=== PATIENT | female | born 1945 | race Caucasian/White ===

== ENCOUNTER 2016-02-21 23:12 | Emergency (ER) | payer MEDICARE, MEDICAID ==
[2016-02-22 00:10] LABS: #Basophils 0.1 thou/uL (0.0-0.2); #Eosinphils 0.2 thou/uL (0.0-0.7); #Monocytes 0.8 thou/uL (0.11-0.59); #Neutrophils 9.3 thou/uL (1.40-6.50); %Basophils 0.8 % (0.0-1.0); %Monocytes 6.9 % (0.0-10.0); Hematocrit 46.6 % (36.0-47.0); Mean Platelet Volume 8.5 fL (7.4-10.4); Red Blood Cell (RBC) Count 5.03 mill/uL (4.20-5.40); White Blood Cell (WBC) Count 11.5 thou/uL (4.8-10.8)
[2016-02-22 00:13] LABS: Bilirubin Negative (Negative); Blood, Urine Negative (Negative); Glucose, Urine (Dipstick) Negative (Negative); Ketone, Urine Negative (Negative); Nitrite Positive (Negative); Protein, Urine (Dipstick) Negative (Neg-Trace); Urobilinogen 0.2 mg/dL (0.2-1.0)
[2016-02-22 00:22] LABS: RBC/HPF 0-3 HPF (0-3); Squamous Epithelial 0-3 HPF (0-3); Transitional Epithelial 0-3 HPF (0-3)
[2016-02-22 00:23] LABS: Bacteria/HPF 3+ HPF (None Seen); Hyaline Casts/LPF 0-3 HYALINE CAST LPF (0-3 Hyaline)
[2016-02-22 00:24] LABS: ALT (SGPT) 34 U/L (0-55); AST (SGOT) 36 U/L (5-34); Alkaline Phosphatase 110 U/L (40-150); Anion Gap 15 mmol/L (10-20); BUN (Urea Nitrogen) 47 mg/dL (9.8-20.1); Bilirubin, Total 0.6 mg/dL (0.2-1.2); Calc. Creatinine Clearance 0 mL/min (70-130); Calcium 9.5 mg/dL (7.8-10.44); Carbon Dioxide 23 mmol/L (23-31); Chloride 96 mmol/L (98-107); Estimated GFR-MDRD 31; Globulin 5.2 g/dL (2.4-3.5); Lipase 120 U/L (8-78); Protein, Total 8.8 g/dL (5.8-8.1)
--- NOTE | 2016-02-22 01:02 | ERRECORD ---
[facility] EMERGENCY RECORD HPI ABDOMINAL PAIN (23:54 [facility]) CHIEF COMPLAINTS: Patient presents for evaluation of abdominal pain, Patient presents for evaluation of abdominal distention. HISTORIAN: History provided by patient, 70F presents with complaints of three weeks of nausea, decreased PO intake, and abdominal discomfort. States that her symptoms have been intermittent but unchanging in character since onset. She was recently an inpatient for CHF exacerbation, and symptoms have been presents since medication changes during that stay. States that her ostomy bag has still had consistent output, and she has not had any episodes of pain. she does report feeling dehydrated, with decreased urinary output and concern for UTI. Denies chest pain, shortness of breath, or headache. Has had multiple abdominal surgeries in the past. LOCATION FEMALE: Symptoms are generalized, Left sided with generalized radiation. QUALITY: Pain is dull in nature, described as bloating sensation, described as cramping, described as a sensation of fullness. TIME COURSE: Gradual onset of symptoms, Symptoms are intermittent, There has been no change in the patient's symptoms over time. ASSOCIATED WITH FEMALE: Associated with urinary tract infection signs or symptoms, hesitancy. EXACERBATED BY: Patient's condition exacerbated by food. ROS (23:58 [facility]) CONSTITUTIONAL: Negative constitutional review of systems, Historian denies chills, denies fever. EYES: Negative eye review of systems, Historian denies eye pain, denies vision changes. ENT: Negative ears, nose, throat review of systems, Historian denies rhinorrhea, denies sore throat, denies voice changes. CARDIOVASCULAR: Negative cardiovascular review of systems, Historian denies chest pain, denies palpitations. RESPIRATORY: Negative respiratory review of systems, Historian denies cough, denies shortness of breath. GI: Historian reports abdominal pain, reports food intolerance. GENITOURINARY FEMALE: Historian denies dysuria, denies frequency, reports hesitancy. MUSCULOSKELETAL: Negative musculoskeletal review of systems, Historian denies back pain, denies fall, denies injury. SKIN: Negative skin review of systems, Historian denies rash, denies skin changes. NEUROLOGIC: Negative neurologic review of systems, Historian denies headache, denies mental status changes, denies paralysis, denies paresthesias, denies sensory changes. HEMO/LYMPHATIC: Normal hematologic/lymphatic system review, Historian denies abnormal blood clotting. &a-1R&a+25V*p+0X*m0296P*c202B*c15G*c2P*p-0X&a-25V&a+1R Name: Honey Cheng : 1945 F70 MedRec: [id number] AcctNum: [id number] Prepared: Mele Feb 22, 2016 01:38 by Interface Page 1 of 4 pMD [facility] EMERGENCY RECORD ALLERGIC/IMMUNOLOGIC: Normal allergy/immunologic system review, Historian denies frequent infections. PAST MEDICAL HISTORY (23:47 [facility]) MEDICAL HISTORY: Past medical history includes endocrine disease, hypothyroidism, Past medical history includes gastrointestinal disease, crohns, DM II, anemia, GI bleed. ischemic cerebral vascular accident x 2, TIA x1 Notes: POSSIBLE HX OF LUPUS AND FIRBROMYALGIA, myocardial infarction, diabetes, Type II, on insulin, coronary artery disease, h/o MRSA infection,hx of acute renal failure. Fx of RArm in 3 places, FX COCYX. REVIEWED 02/21/16. FEMALE SURGICAL HISTORY: Surgical history of mastectomy, CABG, abd wall abscess. 2004 COLON SURGERY; TUMMY TUCK, coronary artery bypass graft surgery, four vessels, Date of surgery 10/2008, umbilical hernia repair, double, Date of surgery 06/16/2009, ileostomy, Date of surgery 2008, tonsillectomy. total colectomy 2013. colectomy, partial small bowel resection, iliostomy,. REVIEWED 02/21/16. PSYCHIATRIC HISTORY: Psychiatric history includes, anxiety, depression. REVIEWED 02/21/16. SOCIAL HISTORY: Patient is a former tobacco user, smoked cigarettes, Patient quit smoking more than 10 years ago, Patient denies alcohol use, Patient denies drug use. REVIEWED 02/21/16. FAMILY HISTORY: Family history is not significant. KNOWN ALLERGIES azathioprine (Unconfirmed): Reaction: PANCREATITIS azathioprine sodium (Unconfirmed): Reaction: PANCREATITIS Bactrim DS (Unconfirmed) Imuran (Unconfirmed): - Entered brand: Imuran Tab -- Entered brand: Imuran Tab -- Entered brand: Imuran Tab Phenergan Plain (Unconfirmed): - "restless legs" promethazine HCl (Unconfirmed): Reaction: RESTLESS LEGS Sulfa (Sulfonamide Antibiotics) (Unconfirmed) sulfamethoxazole (Unconfirmed) tetanus & diphtheria toxoids (Unconfirmed): Reaction: Hives tetanus and diphtheria toxoids (Unconfirmed): Reaction: Hives tetanus-diphtheria toxoids-Td (Unconfirmed): - ANAPHALYXIS trimethoprim (Unconfirmed) CURRENT MEDICATIONS No recorded medications VITAL SIGNS VITAL SIGNS: BP: 103/63, Pulse: 77, Resp: 17, Temp: 97.2 (Oral), Pain: 5, O2 sat: 95 on Room Air, Time: 02/21/2016 23:17. (23:17 [facility]) BP: 111/62, Pulse: 72, Resp: 20, Pain: 0, O2 sat: 99 on Room Air, Time: 02/22/2016 01:31. (SunFeb 22, 2016 01:31 [facility]) PHYSICAL EXAM (23:58 [facility]) &a-1R&a+25V*p+0X*d5791V*c202B*c15G*c2P*p-0X&a-25V&a+1R Name: Honey Cheng : 1945 F70 MedRec: [id number] AcctNum: [id number] Prepared: SunFeb 22, 2016 01:38 by Interface Page 2 of 4 pMD [facility] EMERGENCY RECORD CONSTITUTIONAL: Vital signs reviewed, Patient afebrile, Pulse normal, Blood pressure normal, Respiratory rate normal, Patient appears non toxic, Patient appears pain free, Patient alert and oriented to person, place and time. HEAD: Head exam normal, Head exam included findings of head atraumatic, normocephalic. EYES: Eye exam normal, Eye exam included findings of eyelids normal to inspection, Pupils equally round and reactive to light, Extraocular muscles intact, no nystagmus. ENT: ENT exam normal, Ear exam normal, external ear normal, tympanic membranes normal, no bleeding, Pharynx exam normal, Uvula exam normal, Tonsil exam normal, Mouth exam normal, mucous membranes moist, teeth normal. NECK: Neck exam normal, Neck exam included findings of normal range of motion, Trachea midline, no meningeal signs, no cervical adenopathy, no tenderness. RESPIRATORY CHEST: Respiratory and chest exam normal, Respiratory exam included findings of no respiratory distress, Breath sounds clear. CARDIOVASCULAR: Cardiovascular assessment normal, Cardiovascular exam included findings of heart rate regular rate and rhythm, Heart sounds normal. ABDOMEN FEMALE: Abdominal exam included findings of abdomen nontender, Bowel sounds normal, evidence of multiple previous surgeries. Ostomy with good output. No focal tenderness, only mild diffuse discomfort. BACK: Back exam normal, Back exam included findings of normal inspection, range of motion normal, no tenderness. UPPER EXTREMITY: Upper extremity exam normal, Upper extremity exam included findings of inspection normal, Range of motion normal, Motor strength normal, Sensation intact, Radial pulse normal. LOWER EXTREMITY: Lower extremity exam normal, Lower extremity exam included findings of inspection normal, Range of motion normal, Motor strength normal, Sensation intact, Posterior tibial pulse normal, Pedal pulse normal. NEURO: Neuro exam normal, Neuro exam findings include patient oriented to person, place and time, Speech normal, Gait normal, Cranial nerves intact, no focal motor deficits, no focal sensory deficits. SKIN: Skin exam normal, Skin exam included findings of skin warm, dry, and normal in color, no rash. PSYCHIATRIC: Psychiatric exam normal, Normal affect. RADIOLOGYINTERPRETATION (SunFeb 22, 2016 00:40 [facility]) ABDOMEN: Obstructive series films negative. MEDICATION ADMINISTRATION SUMMARY Drug Name: ciprofloxacin HCl oral, Dose Ordered: 500 mg, Route: Oral, Status: Given, Time: 01:21 02/22/2016, &a-1R&a+25V*p+0X*[id number]*c202B*c15G*c2P*p-0X&a-25V&a+1R Name: Honey Cheng : 1945 F70 MedRec: [id number] AcctNum: [id number] Prepared: SunFeb 22, 2016 01:38 by Interface Page 3 of 4 pMD [facility] EMERGENCY RECORD Drug Name: *sodium chloride 0.9 % intravenous, Dose Ordered: 500 mL, Route: IV Fluid Infusion, Status: Given, Time: 00:09 02/22/2016, *Additional information available in notes, Detailed record available in Medication Service section. DOCTOR NOTES RE-EVALUATION: Routine re-evaluation, after administration of IV fluids, The patient's condition has improved. (SunFeb 22, 2016 00:41 [facility]) TEXT: I reviewed the patient's previous hospitalization notes, including the consultation notes from surgery documenting her previous bowel issues and complications from previous surgeries. While she presented with abdominal discomfort, based on the time course of her presenting symptoms, as well as her physical exam, xrays, lack of vomiting and continuing ostomy output, my suspicion for bowel obstruction is low. I believe her symptoms are secondary to UTI and dehydration, and possibly a component of functional bowel issues. I do not believe she requires further inpatient workup. Her Creatinine is at baseline and she likely hs a component of dehydration, and should increase fluid intake and follow up with her PMD as an outpatient. (SunFeb 22, 2016 00:07 [facility]) PATIENT STATUS: Patient has improved since arrival to emergency department. (SunFeb 22, 2016 00:41 [facility]) PATIENT PLAN: The patient will be discharged. (SunFeb 22, 2016 00:41 [facility]) DATA REVIEWED: Lab data reviewed, Xray data reviewed. (SunFeb 22, 2016 00:41 [facility]) PROBLEM LIST No recorded problems DIAGNOSIS (SunFeb 22, 2016 00:39 [facility]) FINAL: PRIMARY: UTI, ADDITIONAL: DEHYDRATION. PRESCRIPTION (SunFeb 22, 2016 00:38 [facility]) Cipro tablet: TABLET : 500 mg : ORAL : Quantity: 1 Unit: tab(s) Route: ORAL Schedule: 2 times a day (before meals) Dispense: 14 May substitute. Refills: No Refills . NOTES: No refills. DISPOSITION PATIENT: Disposition Type: Discharge, Disposition: *Discharge Home. (SunFeb 22, 2016 00:39 [facility]) Patient left the department. (SunFeb 22, 2016 01:32 [facility]) Saini: MAO=MD Lakisha, Olivier [facility]=CINTIA Fletcher, Loida &a-1R&a+25V*p+0X*u3870X*c202B*c15G*c2P*p-0X&a-25V&a+1R Name: Honey Cheng : 1945 F70 MedRec: [id number] AcctNum: [id number] Prepared: SunFeb 22, 2016 01:38 by Interface Page 4 of 4 pMD MTDD
--- NOTE | 2016-02-22 01:04 | PICIS ---
[facility] EMERGENCY RECORD TRIAGE (23:26 MVIL) TRIAGE NOTES: C/O LLQ ABD PAIN RADIATING TO HER BACK. (23:26 MVIL) PATIENT: NAME: Honey Cheng, AGE: 70, GENDER: female, : Prachi 1945, TIME OF GREET: SunFeb 21, 2016 23:13, PREFERRED LANGUAGE: Upper Sorbian, ETHNICITY: Not or , ECODE BILLING MAP: [facility], SSN: [id number], Zip Code: [address], KG WEIGHT: 62.60, HEIGHT/LENGTH: 157.48cm, BMI: 25.24, PHONE: , , , PERSON ID: [id number], PAYMENT: [facility] Medicare, PCP: MD Villalobos Warren. (23:26 MVIL) COMPLAINT: Abdominal Pain. (23:26 MVIL) ADMISSION: URGENCY: 3 Urgent, ADMISSION SOURCE: Home, TRANSPORT: AMBULANCE - OTHER, BED: ER -04. (23:26 MVIL) ASSESSMENT: Assessment: C/O LLQ ABD PAIN RADIATING TO BACK X 3 WEEKS. DENIES N/V/D OR FEVER., Symptoms began 02/07/2016 23:45, Symptoms began greater than 1 week ago. (23:47 MVIL) PAIN: Patient complains of pain described as, pressure, on a scale 0-10 patient rates pain as 4, Pain is intermittent, No aggravating factors, No relieving factors. (23:47 MVIL) IMMUNIZATIONS: Flu vaccine up to date, Tetanus not up to date, Pneumococcal vaccine up to date. (23:47 MVIL) SIRS SCORING: Heart Rate 55-109 (0), Temp range 96.8-101.1 (0), respiratory rate 12-24 (0), Mental Status altered: no (0). (23:47 MVIL) TRIAGE SCREENING: Patient denies suicidal ideation, Patient denies presence of domestic violence. (23:47 MVIL) PROVIDERS: TRIAGE NURSE: Loida Fletcher RN. (23:26 MVIL) VITAL SIGNS: BP 103/63, Pulse 77, Resp 17, Temp 97.2, (Oral), Pain 5, O2 Sat 95, on Room Air, Time 02/21/2016 23:17. (23:17 MVIL) PREVIOUS VISIT ALLERGIES: Bactrim DS, Imuran, Phenergan Plain, tetanus-diphtheria toxoids-Td. (23:26 MVIL) Bactrim DS, Imuran, Phenergan Plain, tetanus-diphtheria toxoids-Td. (23:47 MVIL) KNOWN ALLERGIES azathioprine (Unconfirmed): Reaction: PANCREATITIS azathioprine sodium (Unconfirmed): Reaction: PANCREATITIS Bactrim DS (Unconfirmed) Imuran (Unconfirmed): - Entered brand: Imuran Tab -- Entered brand: Imuran Tab -- Entered brand: Imuran Tab Phenergan Plain (Unconfirmed): - "restless legs" promethazine HCl (Unconfirmed): Reaction: RESTLESS LEGS Sulfa (Sulfonamide Antibiotics) (Unconfirmed) sulfamethoxazole (Unconfirmed) tetanus & diphtheria toxoids (Unconfirmed): Reaction: Hives tetanus and diphtheria toxoids (Unconfirmed): Reaction: Hives tetanus-diphtheria toxoids-Td (Unconfirmed): - ANAPHALYXIS trimethoprim (Unconfirmed) &a-1R&a+25V*p+0X*u6259T*c202B*c15G*c2P*p-0X&a-25V&a+1R Name: Honey Cheng : 1945 F70 MedRec: [id number] AcctNum: [id number] Prepared: SunFeb 22, 2016 01:44 by Interface Page 1 of 8 pMD [facility] EMERGENCY RECORD CURRENT MEDICATIONS No recorded medications VITAL SIGNS VITAL SIGNS: BP: 103/63, Pulse: 77, Resp: 17, Temp: 97.2 (Oral), Pain: 5, O2 sat: 95 on Room Air, Time: 02/21/2016 23:17. (23:17 MVIL) BP: 111/62, Pulse: 72, Resp: 20, Pain: 0, O2 sat: 99 on Room Air, Time: 02/22/2016 01:31. (SunFeb 22, 2016 01:31 MVIL) NURSING ASSESSMENT: ABDOMEN (SunFeb 22, 2016 00:18 MVIL) CONSTITUTIONAL: Patient arrives, via stretcher, via [facility], Gait steady, History obtained from patient, Patient appears comfortable, Patient cooperative, Patient alert, Oriented to person, place and time, Skin warm, Skin dry, Skin normal in color, Mucous membranes pink, Mucous membranes moist, Patient is well-groomed, Patient complains of C/O LLQ ABD PAIN RADIATING TO HER BACK X 3 WKS INTERMITTENT. PAIN: pressure pain, to the left lower quadrant, Onset of pain 02/07/2016 00:19, on a scale 0-10 patient rates pain as 4, Pain exacerbated by nothing, Nothing has been tried to alleviate the pain. ABDOMEN: Abdomen assessment findings include abdomen symmetrical, Abdomen soft, tender, to the left lower quadrant, no associated nausea, no associated vomiting, no associated diarrhea, Associated with appetite change, loss, Notes: PATIENT HAS AN ILEOSTOMY. SAFETY: Side rails up, Cart/Stretcher in lowest position, Family at bedside, Call light within reach, Hospital ID band on. NURSING PROCEDURE: DISCHARGE NOTE (SunFeb 22, 2016 01:25 MVIL) DISCHARGE: Patient discharged to home, ambulating without assistance, family driving, accompanied by other family member, Summary of Care printed/ provided, Patient requested and was provided an electronic copy of Discharge Instructions, Transition record given to patient, Discharge instructions given to patient, Prescriptions given and instructions on side effects given, Medication reconciliation form given, Above person(s) verbalized understanding of discharge instructions and follow-up care. BELONGINGS: Belongings and valuables with patient at time of discharge include:. NURSING PROCEDURE: IV (23:48 MVIL) PATIENT IDENITIFIER: Patient actively involved in identification process, Patient's identity verified by patient stating name, Patient's identity verified by hospital ID bracelet. IV SITE 1: Notes: LAC 22G IV INSERTED BY EMS. NURSING PROCEDURE: TRANSPORT TO TESTS PATIENT IDENTIFIER: Patient actively involved in identification &a-1R&a+25V*p+0X*d7264U*c202B*c15G*c2P*p-0X&a-25V&a+1R Name: Honey Cheng : 1945 F70 MedRec: [id number] AcctNum: [id number] Prepared: SunFeb 22, 2016 01:44 by Interface Page 2 of 8 pMD [facility] EMERGENCY RECORD process, Patient's identity verified by patient stating name, Patient's identity verified by hospital ID bracelet. (SunFeb 22, 2016 00:00 MVIL) TRANSPORT TO TESTS: Transport indicated to facilitate diagnosis, Patient transported to x-ray, via wheelchair, Accompanied by x-ray serology technician. (SunFeb 22, 2016 00:00 MVIL) FOLLOW-UP: After procedure, patient returned to emergency department. (SunFeb 22, 2016 00:13 MVIL) ORDER DETAILS Order Name: CBC with Differential, Status: Active, Time: 23:44 02/21/2016, User: MAO, - Ordered for: MD Banuelos Jason, - Entered by: MD Banuelos Jason - Mon Feb 21, 2016 23:44, - Quantity: 1, Order Name: Comprehensive Metabolic Panel, Status: Active, Time: 23:44 02/21/2016, User: MAO, - Ordered for: MD Banuelos Jason, - Entered by: MD Banuelos Jason - Mon Feb 21, 2016 23:44, - Quantity: 1, Order Name: Culture, Urine, Status: Active, Time: 23:44 02/21/2016, User: MAO, - Ordered for: MD Banuelos Jason, - Entered by: MD Banuelos Jason - Mon Feb 21, 2016 23:44, - Quantity: 1, Order Name: Lactic Acid with repeat, Status: Active, Time: 23:44 02/21/2016, User: MAO, - Ordered for: MD Banuelos Jason, - Entered by: MD Banuelos Jason - Mon Feb 21, 2016 23:44, - Quantity: 1, Order Name: Lipase, Status: Active, Time: 23:44 02/21/2016, User: MAO, - Ordered for: MD Banuelos Jason, - Entered by: MD Banuelos Jason - Mon Feb 21, 2016 23:44, - Quantity: 1, Order Name: SALINE LOCK, Status: Done, Time: 23:47 02/21/2016, User: SHANNON, - Ordered for: MD Bnauelos Jason, - Entered by: MD Banuelos Jason - Mon Feb 21, 2016 23:44, - Quantity: 1, Order Name: Urinalysis with Microscopic, Status: Active, Time: 23:44 02/21/2016, User: MAO, - Ordered for: MD Banuelos Jason, - Entered by: MD Banuelos Jason - Mon Feb 21, 2016 23:44, - Quantity: 1, Order Name: XR Abdomen 2 View, Status: Active, Time: 23:47 02/21/2016, User: MAO, - Ordered for: MD Banuelos Jason, - Entered by: MD Banuelos Jason - Mon Feb 21, 2016 23:47, - Quantity: 1. &a-1R&a+25V*p+0X*p6204V*c202B*c15G*c2P*p-0X&a-25V&a+1R Name: Honey Cheng : 1945 F70 MedRec: [id number] AcctNum: [id number] Prepared: SunFeb 22, 2016 01:44 by Interface Page 3 of 8 pMD [facility] EMERGENCY RECORD MEDICATION ADMINISTRATION SUMMARY Drug Name: ciprofloxacin HCl oral, Dose Ordered: 500 mg, Route: Oral, Status: Given, Time: 01:21 02/22/2016, Drug Name: *sodium chloride 0.9 % intravenous, Dose Ordered: 500 mL, Route: IV Fluid Infusion, Status: Given, Time: 00:09 02/22/2016, *Additional information available in notes, Detailed record available in Medication Service section. MEDICATION SERVICE ciprofloxacin HCl oral: Order: ciprofloxacin HCl oral (ciprofloxacin HCl) - Dose: 500 mg : Oral Ordered by: Olivier Banuelos MD Entered by: Olivier Banuelos MD SunFeb 22, 2016 00:38 Documented as given by: Loida Fletcher RN SunFeb 22, 2016 01:21 Patient, Medication, Dose, Route and Time verified prior to administration. Amount given: 500MG, Correct patient, time, route, dose and medication confirmed prior to administration, Patient advised of actions and side-effects prior to administration, Allergies confirmed and medications reviewed prior to administration, Patient in position of comfort, Side rails up, Cart in lowest position, Family at bedside. sodium chloride 0.9 % intravenous: Order: sodium chloride 0.9 % intravenous (0.9 % sodium chloride) - Dose: 500 mL : IV Fluid Infusion Notes: (Bolus) Ordered by: Olivier Banuelos MD Entered by: Olivier Banuelos MD SunFeb 22, 2016 00:09 Documented as given by: Loida Fletcher RN SunFeb 22, 2016 00:09 Patient, Medication, Dose, Route and Time verified prior to administration. Amount given: 500MLS, IV SITE #1 IV fluids established for hydration, IV SITE #1 into left antecubital, IV SITE #1 1st bag hung, amount 500ml hung, via primary tubing, Catheter placement confirmed via flush prior to administration, IV site without signs or symptoms of infiltration during medication administration, No swelling during administration, No drainage during administration, IV flushed after administration, Correct patient, time, route, dose and medication confirmed prior to administration, Patient advised of actions and side-effects prior to administration, Allergies confirmed and medications reviewed prior to administration, Patient in position of comfort, Side rails up, Cart in lowest position, Family at bedside. : Follow Up : _IV SITE #1:_, IV fluid infusion discontinued, on SunFeb 22, 2016 01:24, Total fluid hydration time IV site 1 1 hour, 15 minutes, ., Total amount infused: 500MLS, IV Discontinued with catheter intact. (SunFeb 22, 2016 01:23 MVIL) &a-1R&a+25V*p+0X*w1783Y*c202B*c15G*c2P*p-0X&a-25V&a+1R Name: Honey Cheng : 1945 F70 MedRec: [id number] AcctNum: [id number] Prepared: SunFeb 22, 2016 01:44 by Interface Page 4 of 8 pMD [facility] EMERGENCY RECORD HPI ABDOMINAL PAIN (23:54 [facility]) CHIEF COMPLAINTS: Patient presents for evaluation of abdominal pain, Patient presents for evaluation of abdominal distention. HISTORIAN: History provided by patient, 70F presents with complaints of three weeks of nausea, decreased PO intake, and abdominal discomfort. States that her symptoms have been intermittent but unchanging in character since onset. She was recently an inpatient for CHF exacerbation, and symptoms have been presents since medication changes during that stay. States that her ostomy bag has still had consistent output, and she has not had any episodes of pain. she does report feeling dehydrated, with decreased urinary output and concern for UTI. Denies chest pain, shortness of breath, or headache. Has had multiple abdominal surgeries in the past. LOCATION FEMALE: Symptoms are generalized, Left sided with generalized radiation. QUALITY: Pain is dull in nature, described as bloating sensation, described as cramping, described as a sensation of fullness. TIME COURSE: Gradual onset of symptoms, Symptoms are intermittent, There has been no change in the patient's symptoms over time. ASSOCIATED WITH FEMALE: Associated with urinary tract infection signs or symptoms, hesitancy. EXACERBATED BY: Patient's condition exacerbated by food. ROS (23:58 [facility]) CONSTITUTIONAL: Negative constitutional review of systems, Historian denies chills, denies fever. EYES: Negative eye review of systems, Historian denies eye pain, denies vision changes. ENT: Negative ears, nose, throat review of systems, Historian denies rhinorrhea, denies sore throat, denies voice changes. CARDIOVASCULAR: Negative cardiovascular review of systems, Historian denies chest pain, denies palpitations. RESPIRATORY: Negative respiratory review of systems, Historian denies cough, denies shortness of breath. GI: Historian reports abdominal pain, reports food intolerance. GENITOURINARY FEMALE: Historian denies dysuria, denies frequency, reports hesitancy. MUSCULOSKELETAL: Negative musculoskeletal review of systems, Historian denies back pain, denies fall, denies injury. SKIN: Negative skin review of systems, Historian denies rash, denies skin changes. NEUROLOGIC: Negative neurologic review of systems, Historian denies headache, denies mental status changes, denies paralysis, denies paresthesias, denies sensory changes. HEMO/LYMPHATIC: Normal hematologic/lymphatic system review, &a-1R&a+25V*p+0X*t3712H*c202B*c15G*c2P*p-0X&a-25V&a+1R Name: Honey Cheng : 1945 F70 MedRec: [id number] AcctNum: [id number] Prepared: Mele Feb 22, 2016 01:44 by Interface Page 5 of 8 pMD [facility] EMERGENCY RECORD Historian denies abnormal blood clotting. ALLERGIC/IMMUNOLOGIC: Normal allergy/immunologic system review, Historian denies frequent infections. PAST MEDICAL HISTORY (23:47 MVIL) MEDICAL HISTORY: Past medical history includes endocrine disease, hypothyroidism, Past medical history includes gastrointestinal disease, crohns, DM II, anemia, GI bleed. ischemic cerebral vascular accident x 2, TIA x1 Notes: POSSIBLE HX OF LUPUS AND FIRBROMYALGIA, myocardial infarction, diabetes, Type II, on insulin, coronary artery disease, h/o MRSA infection,hx of acute renal failure. Fx of RArm in 3 places, FX COCYX. REVIEWED 02/21/16. FEMALE SURGICAL HISTORY: Surgical history of mastectomy, CABG, abd wall abscess. 2003 COLON SURGERY; TUMMY TUCK, coronary artery bypass graft surgery, four vessels, Date of surgery 10/2008, umbilical hernia repair, double, Date of surgery 06/16/2009, ileostomy, Date of surgery 2008, tonsillectomy. total colectomy 2013. colectomy, partial small bowel resection, iliostomy,. REVIEWED 02/21/16. PSYCHIATRIC HISTORY: Psychiatric history includes, anxiety, depression. REVIEWED 02/21/16. SOCIAL HISTORY: Patient is a former tobacco user, smoked cigarettes, Patient quit smoking more than 10 years ago, Patient denies alcohol use, Patient denies drug use. REVIEWED 02/21/16. FAMILY HISTORY: Family history is not significant. PHYSICAL EXAM (23:58 [facility]) CONSTITUTIONAL: Vital signs reviewed, Patient afebrile, Pulse normal, Blood pressure normal, Respiratory rate normal, Patient appears non toxic, Patient appears pain free, Patient alert and oriented to person, place and time. HEAD: Head exam normal, Head exam included findings of head atraumatic, normocephalic. EYES: Eye exam normal, Eye exam included findings of eyelids normal to inspection, Pupils equally round and reactive to light, Extraocular muscles intact, no nystagmus. ENT: ENT exam normal, Ear exam normal, external ear normal, tympanic membranes normal, no bleeding, Pharynx exam normal, Uvula exam normal, Tonsil exam normal, Mouth exam normal, mucous membranes moist, teeth normal. NECK: Neck exam normal, Neck exam included findings of normal range of motion, Trachea midline, no meningeal signs, no cervical adenopathy, no tenderness. RESPIRATORY CHEST: Respiratory and chest exam normal, Respiratory exam included findings of no respiratory distress, Breath sounds clear. CARDIOVASCULAR: Cardiovascular assessment normal, Cardiovascular exam included findings of heart rate regular rate and rhythm, Heart sounds normal. ABDOMEN FEMALE: Abdominal exam included findings of abdomen &a-1R&a+25V*p+0X*i7213W*c202B*c15G*c2P*p-0X&a-25V&a+1R Name: Honey Cheng : 1945 F70 MedRec: [id number] AcctNum: [id number] Prepared: SunFeb 22, 2016 01:44 by Interface Page 6 of 8 pMD [facility] EMERGENCY RECORD nontender, Bowel sounds normal, evidence of multiple previous surgeries. Ostomy with good output. No focal tenderness, only mild diffuse discomfort. BACK: Back exam normal, Back exam included findings of normal inspection, range of motion normal, no tenderness. UPPER EXTREMITY: Upper extremity exam normal, Upper extremity exam included findings of inspection normal, Range of motion normal, Motor strength normal, Sensation intact, Radial pulse normal. LOWER EXTREMITY: Lower extremity exam normal, Lower extremity exam included findings of inspection normal, Range of motion normal, Motor strength normal, Sensation intact, Posterior tibial pulse normal, Pedal pulse normal. NEURO: Neuro exam normal, Neuro exam findings include patient oriented to person, place and time, Speech normal, Gait normal, Cranial nerves intact, no focal motor deficits, no focal sensory deficits. SKIN: Skin exam normal, Skin exam included findings of skin warm, dry, and normal in color, no rash. PSYCHIATRIC: Psychiatric exam normal, Normal affect. LAB INTERPRETATION (SunFeb 22, 2016 00:40 [facility]) INTERPRETATION: I reviewed the lab results, CBC normal, Chemistry abnormal, Sodium decreased, Chloride decreased, BUN elevated, Creatinine elevated, Urinalysis abnormal, positive for leukocytes, positive for nitrites. EVENTS TRANSFER: Triage to Emergency Emergency Room -04. (23:27 MVIL) Removed from Emergency Emergency Room -04. (SunFeb 22, 2016 01:32 MVIL) RADIOLOGYINTERPRETATION (SunFeb 22, 2016 00:40 [facility]) ABDOMEN: Obstructive series films negative. DOCTOR NOTES RE-EVALUATION: Routine re-evaluation, after administration of IV fluids, The patient's condition has improved. (SunFeb 22, 2016 00:41 [facility]) TEXT: I reviewed the patient's previous hospitalization notes, including the consultation notes from surgery documenting her previous bowel issues and complications from previous surgeries. While she presented with abdominal discomfort, based on the time course of her presenting symptoms, as well as her physical exam, xrays, lack of vomiting and continuing ostomy output, my suspicion for bowel obstruction is low. I believe her symptoms are secondary to UTI and dehydration, and possibly a component of functional bowel issues. I do not believe she requires further inpatient workup. Her Creatinine is at baseline and she likely hs a component of dehydration, and should increase fluid intake and follow up with her PMD as an outpatient. (SunFeb 22, 2016 00:07 [facility]) &a-1R&a+25V*p+0X*u8491L*c202B*c15G*c2P*p-0X&a-25V&a+1R Name: Honey Cheng : 1945 F70 MedRec: [id number] AcctNum: [id number] Prepared: SunFeb 22, 2016 01:44 by Interface Page 7 of 8 pMD [facility] EMERGENCY RECORD PATIENT STATUS: Patient has improved since arrival to emergency department. (SunFeb 22, 2016 00:41 [facility]) PATIENT PLAN: The patient will be discharged. (SunFeb 22, 2016 00:41 [facility]) DATA REVIEWED: Lab data reviewed, Xray data reviewed. (SunFeb 22, 2016 00:41 [facility]) PROBLEM LIST No recorded problems DIAGNOSIS (SunFeb 22, 2016 00:39 [facility]) FINAL: PRIMARY: UTI, ADDITIONAL: DEHYDRATION. DISPOSITION PATIENT: Disposition Type: Discharge, Disposition: *Discharge Home. (SunFeb 22, 2016 00:39 [facility]) Patient left the department. (SunFeb 22, 2016 01:32 MVIL) INSTRUCTION (SunFeb 22, 2016 00:39 [facility]) DISCHARGE: UTI CYSTITIS FEMALE ADULT, DEHYDRATION (6Y-ADULT). [facility]UP: [facility] [address] [place] [address] [address], [place] [id number], . SPECIAL: Follow up with Dr. Roquet. Drink more fluids. return to the ED if your symptoms worsen. [facility] 2016 [facility] Cipro tablet: TABLET : 500 mg : ORAL : Quantity: 1 Unit: tab(s) Route: ORAL Schedule: 2 times a day (before meals) Dispense: 14 May substitute. Refills: No Refills . NOTES: No refills. IMAGING (SunFeb 22, 2016 01:31 MVIL) *DISCHARGE INSTRUCTIONS RECEIPT: Image captured from scanner. *SUPPLY CHARGE SHEET: Image captured from scanner. ADMIN (SunFeb 22, 2016 00:42 GINO) DIGITAL SIGNATURE: MD Banuelos Jason. Saini: GINO=MD Banuelos Jason MVIL=CINTIA Fletcher, [facility] &a-1R&a+25V*p+0X*a6214H*c202B*c15G*c2P*p-0X&a-25V&a+1R Name: Honey Cheng : 1945 F70 MedRec: [id number] AcctNum: [id number] Prepared: SunFeb 22, 2016 01:44 by Interface Page 8 of 8 pMD MTDD
[2016-02-22] MEDS ORDERED: Ciprofloxacin 500 MG TAB ONE (01:20)
--- NOTE | 2016-02-22 12:20 | RAD ---
ABDOMEN TWO VIEWS: Date: 02-22-16 FINDINGS: Gas is seen in nondistended large and small bowel. The bowel gas pattern is nonspecific. There is no evidence of obstruction. Some calcifications are seen in or over the left iliac wing that are pr obably not currently significant. The splenic artery is tortuous and calcified. Scoliosis convex l eft along with degenerative change is seen in the spine. There is no sign of free air. IMPRESSION: 1. Nonspecific abdominal finding. POS: HOME
== END 2016-02-22 01:25 | disposition home or self-care (01) ==
LOC: BURERS 23:12
DX: N39.0 Urinary tract infection, site not specified (principal); E86.0 Dehydration; E03.9 Hypothyroidism, unspecified; E11.9 Type 2 diabetes mellitus without complications; K50.90 Crohn's disease, unspecified, without complications; D64.9 Anemia, unspecified; F41.9 Anxiety disorder, unspecified; F32.9 Major depressive disorder, single episode, unspecified; Z95.1 Presence of aortocoronary bypass graft; Z87.891 Personal history of nicotine dependence
CPT/HCPCS: 74020; 80053; 81001; 83605; 83690; 85025; 87086; 96360

== ENCOUNTER 2016-02-27 04:35 | Inpatient (IN) | payer MEDICARE, MEDICAID ==
[2016-02-27 06:45] LABS: Bilirubin Negative (Negative); Blood, Urine Trace (Negative); Glucose, Urine (Dipstick) 500 mg/dL (Negative); Ketone, Urine Negative (Negative); Nitrite Positive (Negative); Protein, Urine (Dipstick) 30 mg/dL (Neg-Trace); Urobilinogen 0.2 mg/dL (0.2-1.0)
[2016-02-27 06:47] LABS: Lactic Acid - Sepsis 1.3 mmol/L (0.5-2.2)
[2016-02-27 06:50] LABS: ALT (SGPT) 34 U/L (0-55); AST (SGOT) 32 U/L (5-34); Alkaline Phosphatase 114 U/L (40-150); Anion Gap 14 mmol/L (10-20); BUN (Urea Nitrogen) 36 mg/dL (9.8-20.1); Bilirubin, Total 0.5 mg/dL (0.2-1.2); Calc. Creatinine Clearance 0 mL/min (70-130); Calcium 9.5 mg/dL (7.8-10.44); Carbon Dioxide 22 mmol/L (23-31); Chloride 95 mmol/L (98-107); Estimated GFR-MDRD 31; Globulin 5.3 g/dL (2.4-3.5); Lipase 91 U/L (8-78); Protein, Total 8.7 g/dL (5.8-8.1); Troponin I 0.054 ng/mL (< 0.028)
[2016-02-27 06:51] LABS: Bacteria/HPF 3+ HPF (None Seen); Squamous Epithelial 0-3 HPF (0-3)
[2016-02-27 06:52] LABS: #Basophils 0.1 thou/uL (0.0-0.2); #Eosinphils 0.1 thou/uL (0.0-0.7); #Lymphocytes 0.6 thou/uL (1.20-3.40); #Monocytes 0.7 thou/uL (0.11-0.59); #Neutrophils 7.9 thou/uL (1.40-6.50); %Basophils 0.6 % (0.0-1.0); %Eosinophils 1.2 % (0.0-10.0); %Monocytes 7.1 % (0.0-10.0); Hematocrit 43.3 % (36.0-47.0); Mean Platelet Volume 7.7 fL (7.4-10.4); Red Blood Cell (RBC) Count 4.76 mill/uL (4.20-5.40); White Blood Cell (WBC) Count 9.3 thou/uL (4.8-10.8)
[2016-02-27] MEDS ORDERED: Ondansetron HCl/PF 4 MG/2 ML Vial IVP PRN (07:00)
[2016-02-27] MEDS ORDERED: HYDROcodone/Acetaminophen 5/325 mg Tablet PO PRN ×2 (07:00→23:34)
[2016-02-27] MEDS ORDERED: Ondansetron ODT 4 MG TAB SL PRN (07:00)
[2016-02-27] MEDS ORDERED: Sodium Chloride 0.9% 10 ML ONE (07:51)
[2016-02-27] MEDS ORDERED: Sodium Chloride 0.9% 100 ML ONE (07:53)
--- NOTE | 2016-02-27 08:46 | ERRECORD ---
[facility] EMERGENCY RECORD HPI ABDOMINAL PAIN (05:24 DHAM) CHIEF COMPLAINTS: Patient presents for evaluation of abdominal pain. HISTORIAN: History provided by patient, 3 weeks of epigastric abd pain radiating to her back. Seen here 7 days ago and dx with uti and dehydration. She was started on cipro. urine cx grew E. Coli with extended spectrum beta lactamase.and is multiply resistant. She was changed to Macrobid 48 hours ago but has had such an increase in her abd pain and nausea that she just quit the macrobid 24 hours ago. Her abdominal pain has worsened to the point that she could not sleep for the last few hours and called EMS for transport. LOCATION FEMALE: Symptoms are localized, most severe in the epigastrium, Radiation, to the back. QUALITY: Pain is dull in nature, described as aching. SEVERITY: Current severity of pain rated as 5/10. TIME COURSE: Gradual onset of symptoms, epigastric pain started 3 weeks ago, Symptoms are worsening. ASSOCIATED WITH FEMALE: Associated with recent antibiotic use, No associated bright red blood per rectum, No associated chills, No associated constipation, No associated diarrhea, No associated fever, No associated flank pain, No associated groin pain, No associated hematuria, Associated with loss of appetite, No associated melena, Associated with nausea, No associated night sweats, No associated trauma, No associated recent travel, No associated inability to tolerate oral intake, No associated urinary tract infection signs or symptoms, No associated vomiting, No associated vaginal discharge, No associated vaginal bleeding. MODIFYING FACTORS FEMALE: Patient menopausal. RELIEVED BY: Patient's condition relieved by nothing. EXACERBATED BY: Patient's condition exacerbated by food. RISK FACTORS FEMALE: No ectopic risk factors present, Abdominal aortic aneurysm risk factors, include age over 40 years, Coronary artery disease risk factors, include known coronary artery disease, include diabetes, include high cholesterol, include hypertension. ROS (05:36 DHAM) CONSTITUTIONAL: Historian denies chills, denies fever, denies lethargy, denies night sweats. EYES: Historian denies eye pain, denies eye redness. ENT: Negative ears, nose, throat review of systems. CARDIOVASCULAR: Historian denies chest pain, no radiation, Historian denies diaphoresis, denies exercise intolerance, denies syncope, denies palpitations. RESPIRATORY: Historian denies cough, denies shortness of breath, denies sputum, denies wheezing. GI: Historian reports abdominal pain, reports anorexia, reports appetite changes, denies constipation, denies diarrhea, denies hematochezia, denies melena, &a-1R&a+25V*p+0X*[id number]*c202B*c15G*c2P*p-0X&a-25V&a+1R Name: Honey Cheng : 1945 F70 MedRec: [id number] AcctNum: [id number] Prepared: Prachi Feb 27, 2016 08:41 by Interface Page 1 of 5 pMD [facility] EMERGENCY RECORD reports nausea, denies vomiting. GENITOURINARY FEMALE: Historian denies dysuria, reports frequency, denies urgency, denies urine output changes, denies urinary retention. "darker urine for the last couple of days". MUSCULOSKELETAL: Historian denies arthralgias, denies back pain, denies fall, denies injury, denies joint redness, denies joint stiffness, denies joint swelling. SKIN: Historian denies rash, denies skin changes. NEUROLOGIC: Historian denies confusion, denies dizziness, denies focal weakness, denies gait changes, denies mental status changes, denies paralysis, denies paresthesias, denies seizures. HEMO/LYMPHATIC: Historian denies abnormal blood clotting, denies easy bruising. ALLERGIC/IMMUNOLOGIC: Historian denies eczema, reports frequent infections, denies hives. frequent uti's. PSYCHIATRIC: Negative psychiatric review of systems. PAST MEDICAL HISTORY MEDICAL HISTORY: Past medical history includes endocrine disease, hypothyroidism, Past medical history includes gastrointestinal disease, crohns, DM II, anemia, GI bleed. ischemic cerebral vascular accident x 2, TIA x1 Notes: myocardial infarction, diabetes, Type II, on insulin, coronary artery disease, h/o MRSA infection,hx of acute renal failure. Fx of RArm in 3 places, FX COCYX. Verified 02-27-2016. (04:44 SIJO) FEMALE SURGICAL HISTORY: CBG, abd wall abscess. 2004 COLON SURGERY; TUMMY TUCK, coronary artery bypass graft surgery, four vessels, Date of surgery 10/2008, umbilical hernia repair, double, Date of surgery 06/16/2009, ileostomy, Date of surgery 2008, tonsillectomy. total colectomy 2013. colostomy bag placed. Verified 02-27-2016. (04:44 SIJO) PSYCHIATRIC HISTORY: Psychiatric history includes, anxiety, depression. Verified 02-27-2016. (04:44 SIJO) SOCIAL HISTORY: Patient is a former tobacco user, smoked cigarettes, Patient quit smoking more than 10 years ago, Patient denies alcohol use, Patient denies drug use. Verified 02-27-2016. (04:44 SIJO) FAMILY HISTORY: Family history is not significant. (04:44 SIJO) NOTES: I have reviewed the nursing documentation regarding PMHX, social hx, family hx, and surgical history as well as vitals and triage notes and agree. (05:12 [facility]) KNOWN ALLERGIES Bactrim DS (Unconfirmed) Imuran: - Entered brand: Imuran Tab -- Entered brand: Imuran Tab -- Entered brand: Imuran Tab Phenergan Plain: - "restless legs" tetanus-diphtheria toxoids-Td: - ANAPHALYXIS &a-1R&a+25V*p+0X*d4550B*c202B*c15G*c2P*p-0X&a-25V&a+1R Name: Honey Cheng : 1945 F70 MedRec: [id number] AcctNum: [id number] Prepared: Prachi Feb 27, 2016 08:41 by Interface Page 2 of 5 pMD [facility] EMERGENCY RECORD CURRENT MEDICATIONS (04:39 SIJO) Unable to obtain VITAL SIGNS VITAL SIGNS: BP: 116/76, Pulse: 86, Resp: 16, Temp: 98.2 (Oral), Pain: 5, O2 sat: 95 on Room Air, Time: 02/27/2016 04:36. (04:36 SIJO) BP: 113/61, Pulse: 86, Resp: 14, Pain: 4, O2 sat: 94 on Room Air, Time: 02/27/2016 06:00. (06:00 BMAD) BP: 126/71, Pulse: 86, Resp: 16, Pain: 0, O2 sat: 96 on RA, Time: 02/27/2016 06:40. (06:40 BMAD) BP: 120/71, Pulse: 87, Resp: 18 (Non-Labored), Pain: 0, O2 sat: 93 on Room Air, Time: 02/27/2016 07:15. (07:15 AADK) Temp: 98.0 (Oral), Time: 02/27/2016 07:55. (07:55 AADK) BP: 131/71, Pulse: 85, Resp: 18 (Non-Labored), Pain: 3, O2 sat: 92 on Room Air, Time: 02/27/2016 08:00. (08:00 AADK) PHYSICAL EXAM (05:40 DHAM) CONSTITUTIONAL: Vital Signs Reviewed, Patient afebrile, Pulse normal, Blood pressure normal, Respiratory rate normal, Normal pulse oximetry, Patient appears non toxic, Patient appears pain free, Patient alert and oriented to person, place and time, Nursing notes reviewed. very talkative. HEAD: Head exam included findings of head atraumatic, normocephalic. EYES: Eye exam included findings of eyelids normal to inspection, Pupils equally round and reactive to light, Extraocular muscles intact, Conjunctiva normal, Sclera normal, Eye exam included findings of anterior chamber clear. ENT: Ear exam normal, external ear normal, tympanic membranes normal, no foreign body, no drainage, no bleeding, hearing normal, Nose exam normal, no nasal deformity, no bleeding from nares, no bleeding from hypopharynx, no foreign body visualized, no septal hematoma, no septal necrosis, No turbinate mucosa discharge, Pharynx exam normal, not injected, no swelling, symmetrical, Uvula exam normal, midline, no edema, Tonsil exam normal, not enlarged, no exudates, Mouth exam normal, mucous membranes moist, no drooling, no lesions, no lacerations, no tongue elevation, teeth normal. NECK: Neck exam included findings of normal range of motion, Trachea midline, Thyroid normal, no meningeal signs, no cervical adenopathy, no tenderness, no contusions, no ecchymosis. RESPIRATORY CHEST: Respiratory exam included findings of no respiratory distress, Breath sounds clear, No wheezing, No rales, No rhonchi, Breath sounds not diminished, Chest exam included findings of chest movement symmetrical. CARDIOVASCULAR: Cardiovascular exam included findings of heart rate regular rate and rhythm, Heart sounds normal, normal S1, normal S2, no murmurs, no rub, no gallop. ABDOMEN FEMALE: Abdominal exam included findings of abdomen tender, to the epigastric region, moderate &a-1R&a+25V*p+0X*k9379A*c202B*c15G*c2P*p-0X&a-25V&a+1R Name: Honey Cheng : 1945 F70 MedRec: [id number] AcctNum: [id number] Prepared: Prachi Feb 27, 2016 08:41 by Interface Page 3 of 5 pMD [facility] EMERGENCY RECORD intensity, Bowel sounds normal, Liver normal, Spleen normal, no distension, no mass, no pulsatile masses, no peritoneal signs, no rigidity, no guarding, no rebound, no ventral hernia, ostomy draining liquid brown stool and stoma looks healthy and not tender. BACK: Back exam normal. UPPER EXTREMITY: Upper extremity exam normal, Upper extremity exam included findings of inspection normal, no abrasions, no contusions, no deformity, no lacerations, Range of motion normal, Motor strength normal, Sensation intact, Brachial pulse normal, Radial pulse normal. LOWER EXTREMITY: Lower extremity exam included findings of inspection normal, no abrasions, no contusions, no deformity, no lacerations, Range of motion normal, Motor strength normal, Sensation intact, Pedal pulse normal, Nadya's negative, Edema present, to bilateral lower extremities, pitting, +1, chronic and unchanged, no calf tenderness. NEURO: Neuro exam findings include patient oriented to person, place and time, Speech normal, Gait normal, [place] coma scale 15, Memory normal, Cranial nerves intact, Deep tendon reflexes normal, no focal motor deficits, no focal sensory deficits. SKIN: Skin exam included findings of skin warm, dry, and normal in color, no rash. LYMPHATIC: Lymphatic exam normal, Lymphatic exam included findings of cervical nodes normal. PSYCHIATRIC: Psychiatric exam included findings of patient oriented to person place and time, Normal affect, Judgment normal, Insight normal, Remote memory normal, Recent memory normal, Concentration normal, No suicidal ideations, No homicidal ideations. EKG INTERPRETATION (06:59 DHAM) 12 LEAD EKG INTERPRETATION: 12 lead EKG interpreted by Emergency Department Physician at time of study, 12 lead EKG shows normal sinus rhythm, Rate (beats per minute): 83, with no ectopics, Compared with previous EKG from, 11/29/2014 07:02, Similar to old EKG, Conduction normal, ST segments normal, T waves normal, [place] normal, Other findings include:, Q waves in V1, precordial inverted T waves have resolved since last EKG 11/29/2014. MEDICATION ADMINISTRATION SUMMARY Drug Name: Unasyn injection, Dose Ordered: 1.5 g, Route: IV Piggy Back, Status: Given, Time: 08:02 02/27/2016, Detailed record available in Medication Service section. DOCTOR NOTES (07:34 DHAM) TEXT: I have reviewed the labs in detail. She actually looks somewhat better on her labs and her urine values. I suspect the 2 doses of Macrobid may have improved the infection somewhat. &a-1R&a+25V*p+0X*v5691C*c202B*c15G*c2P*p-0X&a-25V&a+1R Name: Honey Cheng : 1945 F70 MedRec: [id number] AcctNum: [id number] Prepared: Prachi Feb 27, 2016 08:41 by Interface Page 4 of 5 pMD [facility] EMERGENCY RECORD However, given her GFR of 31, and nitrofurantoin contraindicated with GFR of less than 60 as well as pt intolerance of this, we really need to use a different med. The E. coli obtained on recent urine cx was resistant to all po meds. It is sensitive to Unasyn (and possibly Augmentin as well by extension?). Her sodium is 127 but corrected for her glucose of 353, it is actually 131. She does not appear septic and though she complains of abdominal pain for 3 weeks, her exam is actually very reassuring. She did have a suggestion of mild pancreatitis 7 days ago with lipase of 120 but this is down to 91 and the pt has been drinking normally. This mild suggestion of pancreatitis may be the source of her abdominal pain. Her troponin is very mildly elevated into the indeterminate range. She has no symptoms to suggest cardiac ischemia and this elevation is most likely due to her decreased GFR. I have discussed these findings with Dr. Lay at 0700 who is in agreement to accept the pt here at [facility]. PROBLEM LIST No recorded problems DIAGNOSIS (07:54 DHAM) FINAL: PRIMARY: UTI, ADDITIONAL: DEHYDRATION, Hyponatremia, mild pancreatitis, TYPE 2 DM W/HYPERGLYCEMIA. PRESCRIPTION No recorded prescriptions DISPOSITION PATIENT: Disposition Type: Admit, Disposition: [facility]. (07:53 DHACarlos) Patient left the department. (08:36 SLIM) Saini: AADLaura=CINTIA Jack, Maggy CONDON=CINTIA Martin, Favian MACIEL=MD Ye, Mathew FLORES=CINTIA Montoya, Shayne &a-1R&a+25V*p+0X*d6023A*c202B*c15G*c2P*p-0X&a-25V&a+1R Name: Prosper Honey L : 1945 F70 MedRec: [id number] AcctNum: [id number] Prepared: Prachi Feb 27, 2016 08:41 by Interface Page 5 of 5 pMD MTDD
--- NOTE | 2016-02-27 08:50 | PICIS ---
[facility] EMERGENCY RECORD COMMUNICATIONS (06:54 BMAD) COMMUNICATIONS: Critical lab value, received at 0654, received from MAYITO GARCIA, Critical lab result: CKMB 7.5, given to YE, results read back and verified. TRIAGE (SunFeb 27, 2016 04:38 SIJO) TRIAGE NOTES: recent dx of UTI - pt states pain radiates to back - onset "three weeks". ([place] Feb 27, 2016 04:38 SIJO) PATIENT: NAME: Honey Cheng, AGE: 70, GENDER: female, : [place] 1945, TIME OF GREET: [place] Feb 27, 2016 04:36, PREFERRED LANGUAGE: German, ETHNICITY: Not or , ECODE BILLING MAP: [facility], SSN: [id number], Zip Code: [address], KG WEIGHT: 65.77, PHONE: , , , PERSON ID: [id number], PAYMENT: [employer], PCP: antoine ely. ([place] Feb 27, 2016 04:38 SIJO) COMPLAINT: abd pain. ([place] Feb 27, 2016 04:38 SIJO) ADMISSION: URGENCY: 3 Urgent, ADMISSION SOURCE: Home, AMBULANCE: [facility], TRANSPORT: CAR, BED: ER -02. ([place] Feb 27, 2016 04:38 SIJO) IMMUNIZATIONS: Flu vaccine up to date, Tetanus not up to date, Pneumococcal vaccine up to date, Notes: Verified 02-27-2016. (04:44 SIJO) SIRS SCORING: Heart Rate 55-109 (0), Temp range 96.8-101.1 (0), respiratory rate 12-24 (0), Mental Status altered: no (0), Infection or Suspected Infection: No. (04:44 SIJO) TRIAGE SCREENING: Patient denies suicidal ideation, Patient denies presence of domestic violence. (04:44 SIJO) LMP: LMP: Not Applicable. (04:44 SIJO) PROVIDERS: TRIAGE NURSE: Shayne Montoya RN. ([place] Feb 27, 2016 04:38 SIJO) VITAL SIGNS: BP 116/76, Pulse 86, Resp 16, Temp 98.2, (Oral), Pain 5, O2 Sat 95, on Room Air, Time 02/27/2016 04:36. (04:36 SIJO) KNOWN ALLERGIES Bactrim DS (Unconfirmed) Imuran: - Entered brand: Imuran Tab -- Entered brand: Imuran Tab -- Entered brand: Imuran Tab Phenergan Plain: - "restless legs" tetanus-diphtheria toxoids-Td: - ANAPHALYXIS CURRENT MEDICATIONS (04:39 SIJO) Unable to obtain VITAL SIGNS VITAL SIGNS: BP: 116/76, Pulse: 86, Resp: 16, Temp: 98.2 (Oral), Pain: 5, O2 sat: 95 on Room Air, Time: 02/27/2016 04:36. (04:36 SIJO) BP: 113/61, Pulse: 86, Resp: 14, Pain: 4, O2 sat: 94 on Room Air, Time: 02/27/2016 06:00. (06:00 BMAD) BP: 126/71, Pulse: 86, Resp: 16, Pain: 0, O2 sat: 96 on RA, Time: 02/27/2016 06:40. (06:40 BMAD) &a-1R&a+25V*p+0X*v3149I*c202B*c15G*c2P*p-0X&a-25V&a+1R Name: Honey Cheng : 1945 F70 MedRec: [id number] AcctNum: [id number] Prepared: Prachi Feb 27, 2016 08:47 by Interface Page 1 of 13 pMD [facility] EMERGENCY RECORD BP: 120/71, Pulse: 87, Resp: 18 (Non-Labored), Pain: 0, O2 sat: 93 on Room Air, Time: 02/27/2016 07:15. (07:15 AADK) Temp: 98.0 (Oral), Time: 02/27/2016 07:55. (07:55 AADK) BP: 131/71, Pulse: 85, Resp: 18 (Non-Labored), Pain: 3, O2 sat: 92 on Room Air, Time: 02/27/2016 08:00. (08:00 AADK) NURSING ASSESSMENT: ABDOMEN (06:43 BMAD) CONSTITUTIONAL: Complex assessment performed, Patient arrives ambulatory, Unsteady gait, Assistance to cart, History obtained from patient, Patient appears comfortable, Patient cooperative, Patient alert, Oriented to person, place and time, Skin warm, Skin dry, Skin normal in color, Mucous membranes pink, Mucous membranes moist, Patient is well-groomed, Patient complains of ABDOMINAL PAIN, weeks of epigastric abd pain radiating to her back. Seen here 7 days ago and dx with uti and dehydration. She was started on cipro. urine cx grew E. Coli with extended spectrum beta lactamase.and is multiply resistant. She was changed to Macrobid 48 hours ago but has had such an increase in her abd pain and nausea that she just quit the macrobid 24 hours ago. Her abdominal pain has worsened to the point that she could not sleep for the last few hours and called EMS for transport. PAIN: dull pain, diffusely, to the epigastric region, Onset of pain X 3 WEEKS, on a scale 0-10 patient rates pain as 4, Pain exacerbated by, eating, Nothing has been tried to alleviate the pain. ABDOMEN: Abdomen assessment findings include abdomen symmetrical, Abdomen soft, tender, to the epigastric region, Associated with nausea, no associated vomiting, no associated diarrhea, no associated constipation. GENITOURINARY FEMALE: no associated urinary complaints, no associated vaginal discharge, no associated vaginal bleeding, no associated vaginal foreign body, no associated complaints of painful intercourse, no urinary catheter present, Not , per patient. NURSING ASSESSMENT: FALL RISK (06:21 BM) FALL RISK: Fall risk assessment findings include: History of falls (5), No bed rest greater than 2 days (0), No use of level of consciousness altering agents with mentation or cognitive changes (0), No change in blood pressure (0), Sensory deficits (1), No impaired mobility (0), No neurologic diagnosis (0), Elimination problems (3), No confusion (0), Total score 9, Fall risk. NURSING ASSESSMENT: SKIN SKIN: Skin assessment findings include skin warm, Skin dry, Skin normal in color, Notes: skin clean dry and intact - no breakdown to posterior surface. (06:05 SIJO) TUBES AND PORTS: Colostomy present, to LOWER R QUADRANT, draining small amount, of semi-soft stool, No &a-1R&a+25V*p+0X*c9782N*c202B*c15G*c2P*p-0X&a-25V&a+1R Name: Honey Cheng : 1945 F70 MedRec: [id number] AcctNum: [id number] Prepared: Prachi Feb 27, 2016 08:47 by Interface Page 2 of 13 pMD [facility] EMERGENCY RECORD signs of infection at site. (06:42 BMAD) NURSING PROCEDURE: BEDSIDE SIRS TESTING (06:53 BMAD) SCORES: Heart Rate 55-109 (0), Temp range 96.8-101.1 (0), respiratory rate 12-24 (0), Latest WBC 3-14.9 (0), Mental Status altered: no (0), Yes, Infection or Suspected Infection. NURSING PROCEDURE: EKG CHART PATIENT IDENTIFIER: Patient actively involved in identification process, Patient's identity verified by patient stating name, Patient's identity verified by patient stating date, Patient's identity verified by hospital ID bracelet. (05:27 BMAD) EK lead EKG performed on the left chest, done by LILIBETH, first EKG. (05:27 SIJO) EKG indicated for ABDOMINAL PAIN, 12 lead EKG performed on the left chest, done by FAVIAN CHAMBERLAIN, first EKG. (05:27 BMAD) FOLLOW-UP: After procedure, EKG for interpretation given to Dr. BELCHER. (05:27 BMAD) NURSING PROCEDURE: INTAKE AND OUTPUT (07:00 AADK) INTAKE AND OUTPUT: Total Intake (ml): 0ml, Urine output(ml): 100, Total Output (ml): 100ml, Grand Total: Output is greater than intake by 100mls. NURSING PROCEDURE: IV (06:05 SIJO) IV SITE 1: IV established, to the left antecubital, using a 20 gauge catheter, in four attempts, IV site prepped with chloraprep, Saline lock established, Labs drawn at time of placement, labeled in the presence of the patient and sent to lab, Blood cultures drawn at time of placement, labeled in the presence of the patient and sent to lab, Notes: Site clean/dry/intact, no redness no swelling. IV start kit and extension set used. By Favian CHAMBERLAIN. NURSING PROCEDURE: NURSE NOTES NURSES NOTES: Warm blanket given to patient. (04:46 SIJO) Notes: PT REPOSITIONED TO POSITION OF COMFORT. PT BRIEF CHANGED. (06:40 BMAD) Patient assisted to bathroom with steady gait, Patient in no apparent distress, Assistance offered to patient, Patient is awaiting results, Notes: APPLIED NON-SKID SOCKS TO PT'S FEET THEN ASSISTED PT TO BSC. SHE VOIDED 100 ML OF MEDIUM YELLOW URINE WITH FOUL ODOR. BACK TO STRETCHER WITH SR UP X2. PT C/O BURNING WITH URINATION. (06:55 AADK) Notes: DR BELCHER SPEAKING WITH DR LAY ABOUT POSSIBLE ADMISSION TO [facility]. (07:23 AADK) Notes: APPLIED FALL RISK AND ALLERGY CLIPS TO PT'S [place]MB[place]. PT ON PHONE WITH FAMILY REQUESTING THEY BRING HER MEDICATION LIST SHE DOES NOT HAVE IT WITH HER. SHE SAID HER SON TESS WILL EITHER BRING THE LIST OR FAX IT TO US. (07:51 AADK) &a-1R&a+25V*p+0X*b0496G*c202B*c15G*c2P*p-0X&a-25V&a+1R Name: Honey Cheng : 1945 F70 MedRec: [id number] AcctNum: [id number] Prepared: Prachi Feb 27, 2016 08:47 by Interface Page 3 of 13 pMD [facility] EMERGENCY RECORD Patient in no apparent distress, Notes: PT REPORTS PAIN 3/10 BUT THAT SHE "DOESN'T WANT TO TAKE ANYTHING FOR IT" AT THIS TIME. STATES PAIN IS AT UMBILICUS AND GOES THROUGH TO HER BACK. (08:07 AADK) VITAL SIGNS: BP: 126, / 71, Pulse: 86, Resp: 16, Pain: 0, O2 sat: 96, on: RA. (06:40 BMAD) NURSING PROCEDURE: POSITIONING (06:05 SIJO) POSITIONING: Notes: Patient able and encouraged to reposition often. NURSING PROCEDURE: TRANSFER (08:20 AADK) TRANSFER: Diagnosis: UTI, ABDOMINAL PAIN, HYPONATREMIA, HYPERGLYCEMIA, Accepting institution: [facility], Accepting physician: DR LAY, Referring physician: DR BELCHER, Transported by, WHEELCHAIR, accompanied by hospital nurse, Summary of Care printed, Status of patient's valuables documented on chart, Medication reconciliation form prepared and sent to receiving facility, Family member contacted, PT NOTIFIED HER SON TESS, Notes: PT TRANSFERRED TO RM 114 ON MEDICAL FLOOR VIA W/C. ALL BELONGINGS WITH TAKEN TO RM 114. IV UNASYN CONTINUED DURING TRANSFER. BELONGINGS: Belongings remain with patient, Valuables remain with patient. EQUIPMENT WITH PATIENT: Equipment with patient at time of transfer IV pump, Saline lock intact and patent at time of transfer. NOTES: Notes: SBAR AND REPORT GIVEN TO AKILAH BABIN RN AT THE BEDSIDE. NURSING PROCEDURE: URINE COLLECTION (06:48 BMAD) PATIENT IDENTIFIER: Patient actively involved in identification process, Patient's identity verified by patient stating name, Patient's identity verified by patient stating date, Patient's identity verified by hospital ID bracelet. URINE COLLECTION FEMALE: Urine collected by straight cath, using an 8fr catheter kit, in one attempt, output amount (mL) 4ML, urine yellow in color, and clear, Specimen collected, labeled in the presence of the patient and sent to lab, Specimen obtained for culture labeled in the presence of the patient and sent to lab. ORDER DETAILS Order Name: B type Natriuretic Peptide, Status: Active, Time: 05:16 02/27/2016, User: JANELL, - Ordered for: MD Belcher Darren, - Entered by: MD Belcher Darren - Prachi Feb 27, 2016 05:16, - Quantity: 1, Order Name: PASSENGER ELEVATOR OPERATOR ED, Status: Done, Time: 05:17 02/27/2016, User: ROSEANNA, - Ordered for: MD Belcher Darren, - Entered by: MD Belcher Darren - Prachi Feb 27, 2016 05:16, - Quantity: 1, &a-1R&a+25V*p+0X*y6646U*c202B*c15G*c2P*p-0X&a-25V&a+1R Name: Cheng Honey Kate : 1945 F70 MedRec: [id number] AcctNum: [id number] Prepared: Prachi Feb 27, 2016 08:47 by Interface Page 4 of 13 pMD [facility] EMERGENCY RECORD Order Name: Cardiac Profile w/CKMB & Troponin - I, Status: Active, Time: 05:16 02/27/2016, User: JANELL, - Ordered for: MD Belcher Darren, - Entered by: MD Belcher Darren [facility] Feb 27, 2016 05:16, - Quantity: 1, Order Name: CATH STRAIGHT ED, Status: Done, Time: 06:06 02/27/2016, User: SANDRA, - Ordered for: MD Belcher Darren, - Entered by: MD Belcher Darren - [place] Feb 27, 2016 05:16, - Quantity: 1, Order Name: CBC with Differential, Status: Active, Time: 05:16 02/27/2016, User: JANELL, - Ordered for: MD Belcher Darren, - Entered by: MD Belcher Darren [facility] Feb 27, 2016 05:16, - Quantity: 1, Order Name: Comprehensive Metabolic Panel, Status: Active, Time: 05:16 02/27/2016, User: JANELL, - Ordered for: MD Belcher Darren, - Entered by: MD Belcher Darren - [place] Feb 27, 2016 05:16, - Quantity: 1, Order Name: Culture, Blood, Status: Active, Time: 05:16 02/27/2016, User: JANELL, - Ordered for: MD Belcher Darren, - Entered by: MD Belcher Darren [facility] Feb 27, 2016 05:16, - Quantity: 1, Order Name: Culture, Urine, Status: Active, Time: 08:03 02/27/2016, User: JANELL, - Ordered for: MD Belcher Darren, - Entered by: MD Belcher Darren [facility] Feb 27, 2016 08:03, - Quantity: 1, Order Name: EKG 12 Lead in Emergency Room, Status: Active, Time: 05:16 02/27/2016, User: JANELL, - Ordered for: MD Belcher Darren, - Entered by: MD Belcher Darren [facility] Feb 27, 2016 05:16, - Quantity: 1, Order Name: Lactic Acid with repeat, Status: Active, Time: 05:16 02/27/2016, User: JANELL, - Ordered for: MD Belcher Darren, - Entered by: MD Belcher Darren [facility] Feb 27, 2016 05:16, - Quantity: 1, Order Name: Lipase, Status: Active, Time: 05:16 02/27/2016, User: JANELL, - Ordered for: MD Belcher Darren, - Entered by: MD Belcher Darren - [place] Feb 27, 2016 05:16, - Quantity: 1, Order Name: SALINE LOCK, Status: Done, Time: 06:06 02/27/2016, User: SANDRA, - Ordered for: MD Belcher Darren, - Entered by: MD Belcher Darren - Prachi Feb 27, 2016 05:16, - Quantity: 1, &a-1R&a+25V*p+0X*o3273W*c202B*c15G*c2P*p-0X&a-25V&a+1R Name: Honey Cheng : 1945 F70 MedRec: [id number] AcctNum: [id number] Prepared: [place] Feb 27, 2016 08:47 by Interface Page 5 of 13 pMD [facility] EMERGENCY RECORD Order Name: Urinalysis w/ Rflx Microscopic, Status: Active, Time: 05:16 02/27/2016, User: JANELL, - Ordered for: MD Belcher Darren, - Entered by: MD Belcher Darren - [place] Feb 27, 2016 05:16, - Quantity: 1. MEDICATION ADMINISTRATION SUMMARY Drug Name: Unasyn injection, Dose Ordered: 1.5 g, Route: IV Piggy Back, Status: Given, Time: 08:02 02/27/2016, Detailed record available in Medication Service section. MEDICATION SERVICE Unasyn injection: Order: Unasyn injection (ampicillin sodium/sulbactam sodium) - Dose: 1.5 g : IV Piggy Back Schedule: Now Ordered by: Mathew Belcher MD Entered by: MD Prachi Romero Feb 27, 2016 08:01 Documented as given by: Mikala Kingsley RN [place] Feb 27, 2016 08:02 Patient, Medication, Dose, Route and Time verified prior to administration. Amount given: 3g, Amount wasted: 1.5g, IV SITE #1 IVPB or drip, initial infusion, IVPB mixed in: 100ml, via primary tubing, Verified Blood Culture collection prior to Antibiotic administration, Connections checked prior to administration, Line traced prior to administration, Catheter placement confirmed via flush prior to administration, IV site without signs or symptoms of infiltration during medication administration, No swelling during administration, No drainage during administration, IV flushed after administration, Correct patient, time, route, dose and medication confirmed prior to administration, Patient advised of actions and side-effects prior to administration, Allergies confirmed and medications reviewed prior to administration, Patient in position of comfort, Side rails up, Cart in lowest position. : Follow Up : _IV SITE #1:_, Medication infusion continued upon transfer from emergency department, on SunFeb 27, 2016 08:20, 20 minutes, ., Total amount infused: 33.5ml. (08:19 KMOR) HPI ABDOMINAL PAIN (05:24 DHAM) CHIEF COMPLAINTS: Patient presents for evaluation of abdominal pain. HISTORIAN: History provided by patient, 3 weeks of epigastric abd pain radiating to her back. Seen here 7 days ago and dx with uti and dehydration. She was started on cipro. urine cx grew E. Coli with extended spectrum beta lactamase.and is multiply resistant. She was changed to Macrobid 48 hours ago but has had such an increase in her abd pain and nausea that she just quit the macrobid 24 hours ago. Her abdominal pain has worsened to the point that she could not sleep for the last few hours and called EMS for transport. LOCATION FEMALE: Symptoms are localized, most severe in the &a-1R&a+25V*p+0X*q8596B*c202B*c15G*c2P*p-0X&a-25V&a+1R Name: Honey Cheng : 1945 F70 MedRec: [id number] AcctNum: [id number] Prepared: [place] Feb 27, 2016 08:47 by Interface Page 6 of 13 pMD [facility] EMERGENCY RECORD epigastrium, Radiation, to the back. QUALITY: Pain is dull in nature, described as aching. SEVERITY: Current severity of pain rated as 5/10. TIME COURSE: Gradual onset of symptoms, epigastric pain started 3 weeks ago, Symptoms are worsening. ASSOCIATED WITH FEMALE: Associated with recent antibiotic use, No associated bright red blood per rectum, No associated chills, No associated constipation, No associated diarrhea, No associated fever, No associated flank pain, No associated groin pain, No associated hematuria, Associated with loss of appetite, No associated melena, Associated with nausea, No associated night sweats, No associated trauma, No associated recent travel, No associated inability to tolerate oral intake, No associated urinary tract infection signs or symptoms, No associated vomiting, No associated vaginal discharge, No associated vaginal bleeding. MODIFYING FACTORS FEMALE: Patient menopausal. RELIEVED BY: Patient's condition relieved by nothing. EXACERBATED BY: Patient's condition exacerbated by food. RISK FACTORS FEMALE: No ectopic risk factors present, Abdominal aortic aneurysm risk factors, include age over 40 years, Coronary artery disease risk factors, include known coronary artery disease, include diabetes, include high cholesterol, include hypertension. ROS (05:36 DHAM) CONSTITUTIONAL: Historian denies chills, denies fever, denies lethargy, denies night sweats. EYES: Historian denies eye pain, denies eye redness. ENT: Negative ears, nose, throat review of systems. CARDIOVASCULAR: Historian denies chest pain, no radiation, Historian denies diaphoresis, denies exercise intolerance, denies syncope, denies palpitations. RESPIRATORY: Historian denies cough, denies shortness of breath, denies sputum, denies wheezing. GI: Historian reports abdominal pain, reports anorexia, reports appetite changes, denies constipation, denies diarrhea, denies hematochezia, denies melena, reports nausea, denies vomiting. GENITOURINARY FEMALE: Historian denies dysuria, reports frequency, denies urgency, denies urine output changes, denies urinary retention. "darker urine for the last couple of days". MUSCULOSKELETAL: Historian denies arthralgias, denies back pain, denies fall, denies injury, denies joint redness, denies joint stiffness, denies joint swelling. SKIN: Historian denies rash, denies skin changes. NEUROLOGIC: Historian denies confusion, denies dizziness, denies focal weakness, denies gait changes, denies mental status changes, denies paralysis, denies paresthesias, denies seizures. &a-1R&a+25V*p+0X*r5026V*c202B*c15G*c2P*p-0X&a-25V&a+1R Name: Honey Cheng : 1945 F70 MedRec: [id number] AcctNum: [id number] Prepared: Prachi Feb 27, 2016 08:47 by Interface Page 7 of 13 pMD [facility] EMERGENCY RECORD HEMO/LYMPHATIC: Historian denies abnormal blood clotting, denies easy bruising. ALLERGIC/IMMUNOLOGIC: Historian denies eczema, reports frequent infections, denies hives. frequent uti's. PSYCHIATRIC: Negative psychiatric review of systems. PAST MEDICAL HISTORY MEDICAL HISTORY: Past medical history includes endocrine disease, hypothyroidism, Past medical history includes gastrointestinal disease, crohns, DM II, anemia, GI bleed. ischemic cerebral vascular accident x 2, TIA x1 Notes: myocardial infarction, diabetes, Type II, on insulin, coronary artery disease, h/o MRSA infection,hx of acute renal failure. Fx of RArm in 3 places, FX COCYX. Verified 02-27-2016. (04:44 SIJO) FEMALE SURGICAL HISTORY: CBG, abd wall abscess. 2003 COLON SURGERY; TUMMY TUCK, coronary artery bypass graft surgery, four vessels, Date of surgery 10/2008, umbilical hernia repair, double, Date of surgery 06/16/2009, ileostomy, Date of surgery 2008, tonsillectomy. total colectomy 2013. colostomy bag placed. Verified 02-27-2016. (04:44 SIJO) PSYCHIATRIC HISTORY: Psychiatric history includes, anxiety, depression. Verified 02-27-2016. (04:44 SIJO) SOCIAL HISTORY: Patient is a former tobacco user, smoked cigarettes, Patient quit smoking more than 10 years ago, Patient denies alcohol use, Patient denies drug use. Verified 02-27-2016. (04:44 SIJO) FAMILY HISTORY: Family history is not significant. (04:44 SIJO) NOTES: I have reviewed the nursing documentation regarding PMHX, social hx, family hx, and surgical history as well as vitals and triage notes and agree. (05:12 DHAM) PHYSICAL EXAM (05:40 DHAM) CONSTITUTIONAL: Vital Signs Reviewed, Patient afebrile, Pulse normal, Blood pressure normal, Respiratory rate normal, Normal pulse oximetry, Patient appears non toxic, Patient appears pain free, Patient alert and oriented to person, place and time, Nursing notes reviewed. very talkative. HEAD: Head exam included findings of head atraumatic, normocephalic. EYES: Eye exam included findings of eyelids normal to inspection, Pupils equally round and reactive to light, Extraocular muscles intact, Conjunctiva normal, Sclera normal, Eye exam included findings of anterior chamber clear. ENT: Ear exam normal, external ear normal, tympanic membranes normal, no foreign body, no drainage, no bleeding, hearing normal, Nose exam normal, no nasal deformity, no bleeding from nares, no bleeding from hypopharynx, no foreign body visualized, no septal hematoma, no septal necrosis, No turbinate mucosa discharge, Pharynx exam normal, not injected, no swelling, symmetrical, Uvula exam &a-1R&a+25V*p+0X*j9754K*c202B*c15G*c2P*p-0X&a-25V&a+1R Name: Honey Cheng : 1945 F70 MedRec: [id number] AcctNum: [id number] Prepared: Prachi Feb 27, 2016 08:47 by Interface Page 8 of 13 pMD [facility] EMERGENCY RECORD normal, midline, no edema, Tonsil exam normal, not enlarged, no exudates, Mouth exam normal, mucous membranes moist, no drooling, no lesions, no lacerations, no tongue elevation, teeth normal. NECK: Neck exam included findings of normal range of motion, Trachea midline, Thyroid normal, no meningeal signs, no cervical adenopathy, no tenderness, no contusions, no ecchymosis. RESPIRATORY CHEST: Respiratory exam included findings of no respiratory distress, Breath sounds clear, No wheezing, No rales, No rhonchi, Breath sounds not diminished, Chest exam included findings of chest movement symmetrical. CARDIOVASCULAR: Cardiovascular exam included findings of heart rate regular rate and rhythm, Heart sounds normal, normal S1, normal S2, no murmurs, no rub, no gallop. ABDOMEN FEMALE: Abdominal exam included findings of abdomen tender, to the epigastric region, moderate intensity, Bowel sounds normal, Liver normal, Spleen normal, no distension, no mass, no pulsatile masses, no peritoneal signs, no rigidity, no guarding, no rebound, no ventral hernia, ostomy draining liquid brown stool and stoma looks healthy and not tender. BACK: Back exam normal. UPPER EXTREMITY: Upper extremity exam normal, Upper extremity exam included findings of inspection normal, no abrasions, no contusions, no deformity, no lacerations, Range of motion normal, Motor strength normal, Sensation intact, Brachial pulse normal, Radial pulse normal. LOWER EXTREMITY: Lower extremity exam included findings of inspection normal, no abrasions, no contusions, no deformity, no lacerations, Range of motion normal, Motor strength normal, Sensation intact, Pedal pulse normal, Nadya's negative, Edema present, to bilateral lower extremities, pitting, +1, chronic and unchanged, no calf tenderness. NEURO: Neuro exam findings include patient oriented to person, place and time, Speech normal, Gait normal, Charla coma scale 15, Memory normal, Cranial nerves intact, Deep tendon reflexes normal, no focal motor deficits, no focal sensory deficits. SKIN: Skin exam included findings of skin warm, dry, and normal in color, no rash. LYMPHATIC: Lymphatic exam normal, Lymphatic exam included findings of cervical nodes normal. PSYCHIATRIC: Psychiatric exam included findings of patient oriented to person place and time, Normal affect, Judgment normal, Insight normal, Remote memory normal, Recent memory normal, Concentration normal, No suicidal ideations, No homicidal ideations. EVENTS TRANSFER: Triage to Emergency Emergency Room -02. (04:38 SIJO) Removed from Emergency Emergency Room -02. (08:36 AADK) &a-1R&a+25V*p+0X*b4366U*c202B*c15G*c2P*p-0X&a-25V&a+1R Name: Honey Cheng : 1945 F70 MedRec: [id number] AcctNum: [id number] Prepared: Prachi Feb 27, 2016 08:47 by Interface Page 9 of 13 pMD [facility] EMERGENCY RECORD EKG INTERPRETATION (06:59 DHAM) 12 LEAD EKG INTERPRETATION: 12 lead EKG interpreted by Emergency Department Physician at time of study, 12 lead EKG shows normal sinus rhythm, Rate (beats per minute): 83, with no ectopics, Compared with previous EKG from, 11/29/2014 07:02, Similar to old EKG, Conduction normal, ST segments normal, T waves normal, [place] normal, Other findings include:, Q waves in V1, precordial inverted T waves have resolved since last EKG 11/29/2014. O2SAT INTERPRETATION (05:44 DHAM) O2SAT: Single pulse oximetry, Oxygen saturation 95%, on room air, Oxygen saturation interpretation: Normal, No intervention required. DOCTOR NOTES (07:34 DHAM) TEXT: I have reviewed the labs in detail. She actually looks somewhat better on her labs and her urine values. I suspect the 2 doses of Macrobid may have improved the infection somewhat. However, given her GFR of 31, and nitrofurantoin contraindicated with GFR of less than 60 as well as pt intolerance of this, we really need to use a different med. The E. coli obtained on recent urine cx was resistant to all po meds. It is sensitive to Unasyn (and possibly Augmentin as well by extension?). Her sodium is 127 but corrected for her glucose of 353, it is actually 131. She does not appear septic and though she complains of abdominal pain for 3 weeks, her exam is actually very reassuring. She did have a suggestion of mild pancreatitis 7 days ago with lipase of 120 but this is down to 91 and the pt has been drinking normally. This mild suggestion of pancreatitis may be the source of her abdominal pain. Her troponin is very mildly elevated into the indeterminate range. She has no symptoms to suggest cardiac ischemia and this elevation is most likely due to her decreased GFR. I have discussed these findings with Dr. Lay at 0700 who is in agreement to accept the pt here at [facility]. PROBLEM LIST No recorded problems DIAGNOSIS (07:54 DHAM) FINAL: PRIMARY: UTI, ADDITIONAL: DEHYDRATION, Hyponatremia, mild pancreatitis, TYPE 2 DM W/HYPERGLYCEMIA. DISPOSITION PATIENT: Disposition Type: Admit, Disposition: [facility]. (07:53 DHAM) Patient left the department. (08:36 AADK) PRESCRIPTION No recorded prescriptions IMAGING &a-1R&a+25V*p+0X*[id number]*c202B*c15G*c2P*p-0X&a-25V&a+1R Name: Honey Cheng : 1945 F70 MedRec: [id number] AcctNum: [id number] Prepared: Prachi Feb 27, 2016 08:47 by Interface Page 10 of 13 pMD [facility] EMERGENCY RECORD EMS REPORT: Image captured from scanner. (05:27 SIJO) *EKG: Image captured from scanner. (07:06 AADK) *SUPPLY CHARGE SHEET: Image captured from scanner. (08:09 AADK) RESULTS LABORATORY: Lipase Collection DT: Jackson Feb 27, 2016 06:38, *Lipase 91 - H U/L, Range (8-78). (06:54 DHAM) Comprehensive Metabolic Panel Collection DT: Jackson Feb 27, 2016 06:38, *Sodium 127 - L mmol/L, Range (136-145), Potassium 4.2 mmol/L, Range (3.5-5.1), *Chloride 95 - L mmol/L, Range (98-107), *Carbon Dioxide 22 - L mmol/L, Range (23-31), Anion Gap 14 mmol/L, Range (10-20), *BUN (Urea Nitrogen) 36 - H mg/dL, Range (9.8-20.1), *Creatinine 1.65 - H mg/dL, Range (0.6-1.1), Estimated GFR-MDRD 31 , Reference Range for Estimated GFR: Greater than 90, mL/min/1.73 m2 NOTE: The MDRD equation has not been validated for use, with the elderly (over 70 years of age), women, patients with, serious comorbid condition or persons with extremes of body size, muscle, mass, or nutritional status. , *Glucose 353 - H mg/dL, Range (80-115), Calcium 9.5 mg/dL, Range (7.8-10.44), Bilirubin, Total 0.5 mg/dL, Range (0.2-1.2), *Protein, Total 8.7 - H g/dL, Range (5.8-8.1), NOTE: Plasma values are generally 0.3 to 0.5 g/dL higher than serum values, due to the presence of fibrinogen. , Albumin 3.4 g/dL, Range (3.4-4.8), *Globulin 5.3 - H g/dL, Range (2.4-3.5), *Alb/Glob Ratio 0.6 - L g/dL, Range (1.2-2.2), Alkaline Phosphatase 114 U/L, Range (40-150), AST (SGOT) 32 U/L, Range (5-34), ALT (SGPT) 34 U/L, Range (0-55). (06:54 DHA) Urinalysis w/ Rflx Microscopic Collection DT: Jackson Feb 27, 2016 06:45, Color Yellow , Range (Yellow), Clarity Slightly Cloudy , Range (Clear), Specific [place], Urine 1.020 , Range (1.005-1.030), pH, Urine 6.0 , Range (5.0-9.0), *Leukocyte Trace - H , Range (Negative), *Nitrite Positive - H , Range (Negative), *Protein, Urine (Dipstick) 30 - H mg/dL, Range (Neg-Trace), *Glucose, Urine (Dipstick) 500 - H mg/dL, Range (Negative), Ketone, Urine Negative mg/dL, Range (Negative), Urobilinogen 0.2 mg/dL, Range (0.2-1.0), Bilirubin Negative , Range (Negative), *Blood, Urine Trace - H , Range (Negative). (06:54 [facility]) &a-1R&a+25V*p+0X*q4191S*c202B*c15G*c2P*p-0X&a-25V&a+1R Name: Honey Cheng Kate : 1945 F70 MedRec: [id number] AcctNum: [id number] Prepared: SunFeb 27, 2016 08:47 by Interface Page 11 of 13 pMD [facility] EMERGENCY RECORD Lactic Acid for Sepsis Collection DT: Jackson Feb 27, 2016 06:38, Lactic Acid - Sepsis 1.3 mmol/L, Range (0.5-2.2). (06:54 [facility]) Cardiac Profile w/CKMB & TropI Collection DT: Jackson Feb 27, 2016 06:38, Critical Call [email or web address] , *CKMB 7.5 - *H ng/mL, Range (0-6.6), Critical value!, *Troponin I 0.054 - H ng/mL, Range (< 0.028), Reference Range , 0.00 - 0.028 ng/mL Negative 0.029 - 0.29 ng/mL , Indeterminate Greater or Equal to 0.3 ng/mL Strongly suggests IA , . (07:25 DHAM) Urine Microscopic Collection DT: Jackson Feb 27, 2016 06:45, RBC/HPF 4-6 HPF, Range (0-3), *WBC/HPF 4-6 - H HPF, Range (0-3), Squamous Epithelial 0-3 HPF, Range (0-3), *Bacteria/HPF 3+ - H HPF, Range (None Seen). (07:25 DHAM) Urinalysis w/ Rflx Microscopic Collection DT: Jackson Feb 27, 2016 06:45, Color Yellow , Range (Yellow), Clarity Slightly Cloudy , Range (Clear), Specific [place], Urine 1.020 , Range (1.005-1.030), pH, Urine 6.0 , Range (5.0-9.0), *Leukocyte Trace - H , Range (Negative), *Nitrite Positive - H , Range (Negative), *Protein, Urine (Dipstick) 30 - H mg/dL, Range (Neg-Trace), *Glucose, Urine (Dipstick) 500 - H mg/dL, Range (Negative), Ketone, Urine Negative mg/dL, Range (Negative), Urobilinogen 0.2 mg/dL, Range (0.2-1.0), Bilirubin Negative , Range (Negative), *Blood, Urine Trace - H , Range (Negative). (07:25 DHAM) B type Natriuretic Peptide Collection DT: Jackson Feb 27, 2016 06:38, B type Natriuretic Peptide 39.1 pg/mL, Range (0-100). (07:25 DHAM) CBC with Differential Collection DT: Jackson Feb 27, 2016 06:38, White Blood Cell (WBC) Count 9.3 thou/uL, Range (4.8-10.8), Red Blood Cell (RBC) Count 4.76 mill/uL, Range (4.20-5.40), Hemoglobin 14.1 g/dL, Range (12.0-16.0), Hematocrit 43.3 %, Range (36.0-47.0), Mean Corpuscular Volume 91.0 fl, Range (81.0-99.0), Mean Corpuscular Hemoglobin 29.7 pg, Range (27.0-31.0), Mean Corpuscular HGB CONC 32.6 g/dL, Range (32.0-36.0), RBC Distribution Width 13.1 %, Range (11.5-14.5), *Platelet Count 129 - L thou/uL, Range (130-400), Mean Platelet Volume 7.7 fL, Range (7.4-10.4), *%Neutrophils 85.1 - H %, Range (42.0-75.0), *%Lymphocytes 6.0 - L %, Range (21.0-51.0), %Monocytes 7.1 %, Range (0.0-10.0), %Eosinophils 1.2 %, Range (0.0-10.0), %Basophils 0.6 %, Range (0.0-1.0), *#Neutrophils 7.9 - H thou/uL, Range (1.40-6.50), &a-1R&a+25V*p+0X*i4966Y*c202B*c15G*c2P*p-0X&a-25V&a+1R Name: Honey Cheng DOB: 1945 F70 MedRec: [id number] AcctNum: [id number] Prepared: Prachi Feb 27, 2016 08:47 by Interface Page 12 of 13 pMD [facility] EMERGENCY RECORD *#Lymphocytes 0.6 - L thou/uL, Range (1.20-3.40), *#Monocytes 0.7 - H thou/uL, Range (0.11-0.59), #Eosinphils 0.1 thou/uL, Range (0.0-0.7), #Basophils 0.1 thou/uL, Range (0.0-0.2). (07:25 [facility]) Saini: SLIM=CINTIA Jack, Maggy CONDON=CINTIA Martin, Favian MACIEL=MD Ye, Mathew HILL=CINTIA Kingsley, Mikala FLORES=CINTIA Montoya, Shayne &a-1R&a+25V*p+0X*g2386N*c202B*c15G*c2P*p-0X&a-25V&a+1R Name: Honey Cheng DOB: 1945 F70 MedRec: [id number] AcctNum: [id number] Prepared: Prachi Feb 27, 2016 08:47 by Interface Page 13 of 13 pMD MTDD
[2016-02-27] MEDS ORDERED: Ampicillin/Sulbactam 3 GM VIAL ONE (09:00)
[2016-02-27] MEDS ORDERED: Sodium Chloride 0.9% 1,000 ML IV SCH (09:30)
[2016-02-27 10:06] VITALS: BMI 25.7
[2016-02-27] MEDS ORDERED: Lorazepam 0.5 MG TAB PO PRN (10:21)
[2016-02-27] MEDS ORDERED: PROVENTIL INHALER 6.7 G (200 INHALATIONS) INH PRN (10:21)
[2016-02-27] MEDS ORDERED: Ondansetron ODT 4 MG TAB PO PRN (10:21)
[2016-02-27] MEDS ORDERED: HumaLOG 300 UNITS/3 ML VIAL ONE (13:18)
[2016-02-27] MEDS: HumaLOG 300 UNITS/3 ML VIAL SC PRN ×2 (13:28→17:47)
--- NOTE | 2016-02-27 13:47 | HP ---
fDATE OF ADMISSION: 02/27/2016 CHIEF COMPLAINT: Abdominal pain. HISTORY OF PRESENT ILLNESS: This is a 70-year-old female with complicated abdominal history who presented to the [facility] with complaints of abdominal pain which has been present over the last few weeks. Prior evaluation on 02/22/2016 displayed abdominal x-ray findings showing nonspecific abdominal findings. She was noted to have a urinary tract infection during evaluation earlier this week and treated with Macrobid per cultures. She states she has had no fever, chills or diaphoresis since initiation of that antibiotic. The patient states she has been taking Zofran for nausea. She does have a history of Crohn's disease with a partial small bowel resection; she has been followed by Dr. Bell and/or Dr. Oswald up to this point. 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 Lab evaluation upon presentation to the emergency department displayed a mild pancreatitis with a lipase level of 91. She was also notably hyponatremic with sodium of 127. Her glucose was elevated at 353. Urinalysis did show positive for nitrites and LE as well. She notably has no leukocytosis and vitals are stable. She recently met with her new primary care provider Dr. Villalobos about a month ago with the intention to taper down her medication list secondary to her concerns for possible relation to her abdominal pain. States her medication list was cut down from 17 medications to 9 in regards to this. She was last evaluated by Gastroenterology 1-2 years ago. The patient will be admitted for treatment of her UTI, electrolyte normalization and mild pancreatitis, along with management of her diabetes. PAST MEDICAL HISTORY: Includes hypothyroidism, diabetes mellitus type 2, Crohn' s disease, chronic anemia, history of CVA, history of TIA, fibromyalgia, chronic pain syndrome, coronary artery disease, dyslipidemia, gastroesophageal reflux disease, anxiety and depression, diastolic heart failure. Chronic kidney disease. PAST SURGICAL HISTORY: She has had a quadruple bypass, drainage of abdominal wall abscess, a tummy tuck surgery repair of umbilical hernia, mastectomy, tonsillectomy, partial small resection with ileostomy. SOCIAL HISTORY: She quit smoking approximately 30 years ago. She denies alcohol or illicit drug use. She lives in [place] alone with her dog. She states her daughter lives one block away. ALLERGIES: She is allergic to SULFA, IMURAN, PHENERGAN and TETANUS TOXOID. CURRENT MEDICATIONS: Include Mirapex 0.5 mg p.o. at bedtime, multivitamin 1 tab p.o. daily, Levemir 10 units subcutaneous at bedtime, ProAir inhaler 2 puffs q.6 hours p.r.n., Celexa 20 mg p.o. at bedtime, Lipitor 10 mg p.o. at bedtime, Aspirin 81 mg p.o. daily, ferrous sulfate 325 p.o. Sunday, Sunday, Sunday, Lasix 40 mg p.o. daily, Probiotic 2 capsules p.o. at bedtime, [place] p.r.n., potassium chloride 10 mEq p.o. daily, metoprolol tartrate 25 mg p.o. b.i.d., levothyroxine 25 mcg p.o. daily, lorazepam 0.5 mg p.o. b.i.d. p.r.n., Pentasa 1000 mg p.o. b.i.d., Zofran 4 mg p.o. q.6 hours p.r.n. and ursodiol 300 mg p.o. b.i.d. REVIEW OF SYSTEMS: GENERAL: The patient denies fever, chills or diaphoresis. Ear, Nose, and Throat: Denies sore throat, nasal drainage or congestion. CARDIOVASCULAR: Denies chest pain or palpitations. RESPIRATORY: Denies shortness of breath or cough. GASTROINTESTINAL: Complains of mild nonspecific abdominal pain with nausea. Denies diarrhea or constipation. GENITOURINARY: Denies dysuria or hematuria. MUSCULOSKELETAL: Denies joint swelling or pain. DERMATOLOGIC: Denies rash. NEUROLOGIC: Denies headache. LABORATORY DATA: White blood cell count 9.3, H\T\H is 14.1 and 43.3. Sodium is 127, corrected to 131, potassium is 4.2, BUN and creatinine is 36 and 1.65, GFR was 31, glucose is 353. Lactic acid is 1.3, AST 32, ALT is 34. Lipase is 91. Urinalysis was positive for glucose and nitrites and leukocyte esterase. PHYSICAL EXAMINATION: VITAL SIGNS: Temperature is 97.6, pulse is 83, respiratory rate is 18, oxygen is 94% on room air, blood pressure is 135/70. GENERAL: The patient is alert and oriented x3. She is in no acute distress. HEENT: Normocephalic and atraumatic. Pupils are equal, round, and reactive to light. Extraocular muscles are intact. Dry mucous membranes and she has dentures as well NECK: Supple, with no meningeal signs. No JVD. CARDIOVASCULAR: Regular rate and rhythm, normal S1, S2. No murmurs, rubs or gallops. RESPIRATORY: Clear to auscultation bilaterally without wheezes, rales or rhonchi. ABDOMEN: Ileostomy with scarring to the central abdomen. Minimally tender to palpation diffusely with no rebound or guarding. EXTREMITIES: No clubbing or cyanosis. There is trace edema DERMATOLOGY: Sternotomy scar, no rashes. She has peripheral vascular disease, changes with dusky skin to the lower extremities. NEUROLOGICAL: Cranial nerves II-XII are intact with no focal deficits. ASSESSMENT AND PLAN: 1. Urinary tract infection. The patient will be provided Unasyn based on her prior cultures. We will follow urine culture. 2. Pancreatitis. Patient on a clear liquid diet and will advance as tolerated with follow up lipase in the morning; will have patient followup with GI as an outpatient upon discharge. 3. Stage 3 chronic kidney disease. We will provide gentle hydration. 4. Hyponatremia, currently 127, corrected to 131 secondary to her elevated glucose, we will follow up CMP in the morning. 5. Diabetes mellitus, we will continue her home Levemir dosing and add sliding scale with before meals and at bedtime ACCU checks. 6. History of congestive heart failure due to diastolic dysfunction, we will continue home Lasix dose and follow her weight. 7. Prophylaxis. Aspirin and sequential compression devices, we will avoid anticoagulation with Lovenox secondary to history of chron's disease. We will provide a proton pump inhibitor with Protonix. [facility]
[2016-02-27] MEDS ORDERED: Ampicillin/Sulbactam 3 GM VIAL IVPB SCH (16:00)
[2016-02-27] MEDS: Metoprolol Tartrate 25 MG TAB PO SCH (20:30)
[2016-02-27] MEDS ORDERED: Atorvastatin Calcium 10 MG TAB PO SCH (21:00)
[2016-02-27] MEDS ORDERED: Pramipexole Di-HCl 0.25 MG TAB PO SCH (21:00)
[2016-02-28 05:17] LABS: BUN (Urea Nitrogen) 25 mg/dL (9.8-20.1); Calc. Creatinine Clearance 48 mL/min (70-130); Calcium 8.6 mg/dL (7.8-10.44); Chloride 106 mmol/L (98-107); Estimated GFR-MDRD 49; Lipase 61 U/L (8-78); Protein, Total 6.8 g/dL (5.8-8.1)
[2016-02-28 05:28] LABS: #Basophils 0.1 thou/uL (0.0-0.2); #Eosinphils 0.2 thou/uL (0.0-0.7); #Lymphocytes 0.6 thou/uL (1.20-3.40); #Monocytes 0.5 thou/uL (0.11-0.59); #Neutrophils 6.4 thou/uL (1.40-6.50); %Basophils 0.9 % (0.0-1.0); %Eosinophils 2.2 % (0.0-10.0); %Monocytes 6.4 % (0.0-10.0); Anisocytosis SLIGHT = 6-15 cells (100X) (0-5/hpf); Red Blood Cell (RBC) Count 3.99 mill/uL (4.20-5.40); White Blood Cell (WBC) Count 7.8 thou/uL (4.8-10.8)
[2016-02-28 05:46] LABS: ALT (SGPT) 28 U/L (0-55); AST (SGOT) 33 U/L (5-34); Alkaline Phosphatase 86 U/L (40-150); Anion Gap 14 mmol/L (10-20); Bilirubin, Total 0.4 mg/dL (0.2-1.2); Carbon Dioxide 16 mmol/L (23-31)
[2016-02-28] MEDS ORDERED: Potassium Chloride 10 MEQ TAB PO SCH (08:00)
[2016-02-28] MEDS ORDERED: Levothyroxine Sodium 25 MCG TAB PO SCH (09:00)
[2016-02-28] MEDS ORDERED: Furosemide 40 MG TAB PO SCH (09:00)
[2016-02-28] MEDS ORDERED: Ampicillin/Sulbactam 3 GM in Sodium Chloride 0.9% 100 ML IVPB SCH (09:00)
[2016-02-28] MEDS ORDERED: Multivit, Therapeutic 1 TAB PO SCH (09:00)
[2016-02-28] MEDS ORDERED: Ferrous Sulfate 325 MG TAB PO SCH (09:00)
[2016-02-28] MEDS ORDERED: Levemir Flexpen 100 UNITS/ML PEN SC SCH (09:00)
[2016-02-28] MEDS: HumaLOG 300 UNITS/3 ML VIAL SC PRN ×2 (09:33→12:53)
[2016-02-28] MEDS: Metoprolol Tartrate 25 MG TAB PO SCH (09:43)
[2016-02-28 11:09] VITALS: BP 110/68; TEMP 98.2
[2016-02-28] MEDS ORDERED: Ampicillin/Sulbactam 1.5 GM in Sodium Chloride 0.9% 100 ML IVPB SCH (12:00)
--- NOTE | 2016-02-28 23:26 | DIS ---
DATE OF ADMISSION: 02/27/2016 DATE OF DISCHARGE: 02/28/2016 ADMISSION DIAGNOSES: Urinary tract infection, pancreatitis, hyponatremia, chronic kidney disease stage 3, diabetes mellitus type 2, history of Crohn's disease, anxiety and depression, history of CHF, diastolic dysfunction. DISCHARGE DIAGNOSES: Urinary tract infection, pancreatitis, hyponatremia, chronic kidney disease stage 3, diabetes mellitus type 2, history of Crohn's disease, anxiety and depression, history of CHF, diastolic dysfunction. PROCEDURES: None. HOSPITAL COURSE: A 70-year-old female who presented to [facility] with a 3 week course of abdominal discomfort; she has a notable history of Crohn's disease and is s/p ileostomy. Prior to arrival, she was treated per her cultures for urinary tract infection. Upon evaluation, she was noted to have a urinary tract infection, elevated lipase level and hyponatremia. She was admitted and provided gentle rehydration intravenously. She was also placed on Unasyn per her most recent urinary cultures; current urinary cultures showed gram negative rods x2 with sensitivities pending. She had no issues overnight and morning labs displayed an improvement in her sodium levels from 127-132. Her lipase decreased from 91-61 and her diet was advanced from clear liquids to a diabetic diet, which she tolerated well. She had no fever during her stay; and her vitals remained stable throughout. The patient reports that her abdominal pain significantly improved and reports no pain at the time of discharge. Her regular GI has been Dr. Bell; however, at this time it was felt that she will likely follow up with Dr. Oswald regarding her GI history. The patient's renal function notably improved with gentle rehydration. Her diabetes mellitus was controlled as well with her home Levemir and meal time sliding scale. She will be discharged home today on her usual home medications along with a 5-day course of Augmentin; she will need follow up on finalized urinary cultures. DISPOSITION: The patient will return home and she does have home health set up. She will follow up with Dr. Villalobos her primary care provided next week and GI on an as needed basis. DISCHARGE MEDICATIONS: Include, 1. New medication: Augmentin 875/125 mg p.o. b.i.d. x5 days. 2. She will resume her home medications, which include Mirapex 0.5 mg p.o. at bedtime, daily multivitamin, Levemir 10 units subcutaneous at bedtime, ProAir 2 puffs q.6 hours p.r.n., Flexeril 20 mg p.o. at bedtime, Lipitor 10 mg p.o. at bedtime, Aspirin 81 mg p.o. daily, ferrous sulfate 325 mg p.o. daily, Lasix 40 mg p.o. daily, Probiotic, [place] p.r.n., potassium chloride 10 mEq p.o. daily, metoprolol tartrate 25 mg p.o. b.i.d., levothyroxine 25 mcg p.o. daily, lorazepam 0.5 mg p.o. b.i.d. p.r.n. Pentaza 1000 mg p.o. b.i.d., Zofran 4 mg p.o. q.6 hours p.r.n. and ursodiol 300 mg p.o. b.i.d. MTDD
== END 2016-02-28 17:30 | disposition home health service (06) | DRG 689 ==
LOC: BURERS 04:35 → BURMED 07:00
PROVIDERS: ADMIT Family Medicine; ATTEND Family Medicine
DX: N39.0 Urinary tract infection, site not specified (principal); K85.90 Acute pancreatitis without necrosis or infection, unspecified; I50.30 Unspecified diastolic (congestive) heart failure; E11.22 Type 2 diabetes mellitus with diabetic chronic kidney disease; E87.1 Hypo-osmolality and hyponatremia; K50.90 Crohn's disease, unspecified, without complications; N18.3 Chronic kidney disease, stage 3 (moderate); Z79.4 Long term (current) use of insulin; Z88.2 Allergy status to sulfonamides; Z88.7 Allergy status to serum and vaccine; Z88.8 Allergy status to other drugs, medicaments and biological substances; Z79.82 Long term (current) use of aspirin; E03.9 Hypothyroidism, unspecified; Z86.73 Personal history of transient ischemic attack (TIA), and cerebral infarction without residual deficits; E78.5 Hyperlipidemia, unspecified; K21.9 Gastro-esophageal reflux disease without esophagitis; Z95.1 Presence of aortocoronary bypass graft; Z87.891 Personal history of nicotine dependence; F41.9 Anxiety disorder, unspecified; F32.9 Major depressive disorder, single episode, unspecified; Z93.2 Ileostomy status
CPT/HCPCS: 36415; 36416; 51701; 80053; 81003; 81015; 82553; 83605; 83690; 83880; 84484; 85025; 87040; 87077; 87086; 87186; 93005; 96365; A4216; A4353; J0295; J1815; J7050

== ENCOUNTER 2016-03-04 16:52 | Emergency (ER) | payer MEDICARE, MEDICAID ==
[2016-03-04 17:26] LABS: PTT 22.4 SEC (22.9-36.1); Prothrombin Time 14.9 SEC (12.0-14.7)
[2016-03-04 17:33] LABS: Lactic Acid - Sepsis 2.1 mmol/L (0.5-2.2)
[2016-03-04 17:36] LABS: ALT (SGPT) 33 U/L (0-55); AST (SGOT) 26 U/L (5-34); Alkaline Phosphatase 91 U/L (40-150); Anion Gap 14 mmol/L (10-20); BUN (Urea Nitrogen) 30 mg/dL (9.8-20.1); Bilirubin, Total 0.3 mg/dL (0.2-1.2); Calc. Creatinine Clearance 0 mL/min (70-130); Calcium 8.7 mg/dL (7.8-10.44); Carbon Dioxide 18 mmol/L (23-31); Chloride 101 mmol/L (98-107); Estimated GFR-MDRD 35; Globulin 4.2 g/dL (2.4-3.5); Lipase 111 U/L (8-78); Protein, Total 7.1 g/dL (5.8-8.1)
[2016-03-04 17:49] LABS: #Basophils 0.1 thou/uL (0.0-0.2); #Eosinphils 0.2 thou/uL (0.0-0.7); #Lymphocytes 0.6 thou/uL (1.20-3.40); #Monocytes 0.5 thou/uL (0.11-0.59); #Neutrophils 7.6 thou/uL (1.40-6.50); %Basophils 1.1 % (0.0-1.0); %Eosinophils 2.1 % (0.0-10.0); Hematocrit 33.3 % (36.0-47.0); Mean Platelet Volume 7.9 fL (7.4-10.4); Red Blood Cell (RBC) Count 3.62 mill/uL (4.20-5.40)
[2016-03-04] MEDS ORDERED: Insulin Regular 300 UNITS/3 ML VIAL ONE (17:52)
[2016-03-04] MEDS ORDERED: Ondansetron HCl/PF 4 MG/2 ML Vial ONE ×2 (18:11→19:43)
--- NOTE | 2016-03-04 19:11 | CT ---
CT ABDOMEN AND PELVIS WITHOUT CONTRAST 03/04/[address] of the abdomen and pelvis was performed for evaluation of bleeding from the patient's colo stomy. Axial slices were acquired after giving oral contrast. IV contrast was withheld due to the pa tient's low GFR. The lung bases shows some streaking that is probably atelectasis or scarring. The l iver, spleen, pancreas, and kidneys were unremarkable in appearance within the limitations of a nonc ontrast study. The adrenal glands were unremarkable. Arteriosclerotic change was seen in the aorta b ut there is no aneurysm. There is some increase in retroperitoneal blood vessels. Sometimes this can be seen in cases of portal hypertension, but is not always abnormal. Correlate with the rest of kn wn clinical history. The main finding on the study is prominent thickening of the second part of the duodenum and mild thickening of some of the loops of proximal small bowel. Infectious or inflammato ry etiologies should be considered. There is no free air or free fluid apparent. CT of the pelvis shows no pelvic masses or adnexal abnormalities. No free fluid is present. There is evidence of prior vertebral injury to some of the lower thoracic vertebrae around T11 and T12. Age is indeterminate. IMPRESSION: Marked thickening of the second part of the duodenum and mild thickening of loops of particularly pr oximal small bowel. Enteritis is a consideration, infectious versus inflammatory. Findings discussed with Dr. Banuelos at 1844 on 03/04/16. POS: HOME
[2016-03-04 19:31] LABS: #Basophils 0.1 thou/uL (0.0-0.2); #Eosinphils 0.2 thou/uL (0.0-0.7); #Monocytes 0.9 thou/uL (0.11-0.59); %Basophils 0.7 % (0.0-1.0); %Eosinophils 1.9 % (0.0-10.0); %Monocytes 8.8 % (0.0-10.0); Hematocrit 30.3 % (36.0-47.0); Mean Platelet Volume 7.9 fL (7.4-10.4); Red Blood Cell (RBC) Count 3.34 mill/uL (4.20-5.40); White Blood Cell (WBC) Count 10.1 thou/uL (4.8-10.8)
--- NOTE | 2016-03-04 20:47 | ERRECORD ---
[facility] EMERGENCY RECORD HPI OSTOMY COMPLAINT (17:10 [facility]) CHIEF COMPLAINT: Patient presents for evaluation of bleeding from, ileostomy. HISTORIAN: History provided by patient, 70F presents with complaints of blood in her ostomy bag. States that she began noticing blood in the ostomy bag yesterday evening around 930, and has changed the bag 8 times since then with continual bleeding. Voices only minimal pain in her abdomen, denies nausea of vomiting, denies back pain or chest pain, denies urinary complaints. Was previously inpatient here for resistant UTI. LOCATION FEMALE: No localizing symptoms. QUALITY: Pain is dull in nature, described as aching. TIME COURSE: Sudden onset of symptoms. ASSOCIATED WITH FEMALE: Associated with abdominal pain, No associated fever. EXACERBATED BY: Patient's condition exacerbated by nothing. RELIEVED BY: Patient's condition relieved by nothing. ROS (17:12 [facility] CONSTITUTIONAL: Negative constitutional review of systems, Historian denies chills, denies fever. EYES: Negative eye review of systems, Historian denies eye pain, denies vision changes. ENT: Negative ears, nose, throat review of systems, Historian denies rhinorrhea, denies sore throat, denies voice changes. CARDIOVASCULAR: Negative cardiovascular review of systems, Historian denies chest pain, denies palpitations. RESPIRATORY: Negative respiratory review of systems, Historian denies cough, denies shortness of breath. GI: Historian reports abdominal pain, reports hematochezia. mild abdominal pain with blood from the ostomy output. Denies nausea or vomiting. GENITOURINARY FEMALE: Negative genitourinary review of systems, Historian denies dysuria, denies frequency. MUSCULOSKELETAL: Negative musculoskeletal review of systems, Historian denies back pain, denies fall, denies injury. SKIN: Negative skin review of systems, Historian denies rash, denies skin changes. NEUROLOGIC: Negative neurologic review of systems, Historian denies headache, denies mental status changes, denies paralysis, denies paresthesias, denies sensory changes. HEMO/LYMPHATIC: Normal hematologic/lymphatic system review, Historian denies abnormal blood clotting. ALLERGIC/IMMUNOLOGIC: Normal allergy/immunologic system review, Historian denies frequent infections. PAST MEDICAL HISTORY (17:42 [facility]) MEDICAL HISTORY: Past medical history includes endocrine disease, hypothyroidism, Past medical history includes &a-1R&a+25V*p+0X*[id number]*c202B*c15G*c2P*p-0X&a-25V&a+1R Name: Honey Cheng : 1945 F70 MedRec: [id number] AcctNum: [id number] Prepared: Sat Mar 04, 2016 21:03 by Interface Page 1 of 5 pMD [facility] EMERGENCY RECORD gastrointestinal disease, crohns, DM II, anemia, GI bleed. ischemic cerebral vascular accident x 2, TIA x1 Notes: myocardial infarction, diabetes, Type II, on insulin, coronary artery disease, h/o MRSA infection,hx of acute renal failure. Fx of RArm in 3 places, FX COCYX. Verified 03/04/16. FEMALE SURGICAL HISTORY: CBG, abd wall abscess. 2004 COLON SURGERY; TUMMY TUCK, coronary artery bypass graft surgery, four vessels, Date of surgery 10/2008, umbilical hernia repair, double, Date of surgery 06/16/2009, ileostomy, Date of surgery 2008, tonsillectomy. total colectomy 2013. colostomy bag placed. Verified . PSYCHIATRIC HISTORY: Psychiatric history includes, anxiety, depression. Verified . SOCIAL HISTORY: Patient is a former tobacco user, smoked cigarettes, Patient quit smoking more than 10 years ago, Patient denies alcohol use, Patient denies drug use. Verified 03/04/16. FAMILY HISTORY: Family history is not significant. KNOWN ALLERGIES azathioprine (Unconfirmed): Reaction: PANCREATITIS azathioprine sodium (Unconfirmed): Reaction: PANCREATITIS Bactrim DS Imuran: - Entered brand: Imuran Tab -- Entered brand: Imuran Tab -- Entered brand: Imuran Tab Phenergan Plain: - "restless legs" promethazine HCl (Unconfirmed): Reaction: RESTLESS LEGS Sulfa (Sulfonamide Antibiotics) (Unconfirmed) sulfamethoxazole (Unconfirmed) tetanus and diphtheria toxoids (Unconfirmed): Reaction: Hives tetanus-diphtheria toxoids-Td: - ANAPHALYXIS trimethoprim (Unconfirmed) CURRENT MEDICATIONS Unable to obtain (17:48 [facility]) Synthroid: TABLET : Strength - 25 mcg : ORAL Patient Dose: 1 tab(s) Oral once a day. (17:58 [facility]) Klor-Con 10: TABLET, EXTENDED RELEASE : Strength - 10 mEq : ORAL Patient Dose: Unknown. (17:58 [facility]) Lasix: TABLET : Strength - 40 mg : ORAL Patient Dose: 1 tab(s) Oral once a day. (17:59 [facility]) Pentasa: CAPSULE, EXTENDED RELEASE : Strength - 500 mg : ORAL Patient Dose: 2 tab(s) Oral 2 times a day. (17:59 [facility]) aspirin: TABLET : Strength - 81 mg : ORAL Patient Dose: 1 tab(s) Oral once a day. (18:00 [facility]) Levemir: &a-1R&a+25V*p+0X*[id number]*c202B*c15G*c2P*p-0X&a-25V&a+1R Name: Honey Cheng : 1945 F70 MedRec: [id number] AcctNum: [id number] Prepared: Sat Mar 04, 2016 21:03 by Interface Page 2 of 5 pMD [facility] EMERGENCY RECORD VIAL (ML) : Strength - 100 unit/mL : SUBCUTANEOUS Patient Dose: 10 units Subcutaneous once a day. (18:00 [facility]) ursodiol: CAPSULE : Strength - 300 mg : ORAL Patient Dose: 1 cap(s) Oral 2 times a day. (18:00 [facility]) atorvastatin: TABLET : Strength - 10 mg : ORAL Patient Dose: 1 tab(s) Oral once a day. (18:01 [facility]) CeleXA: TABLET : Strength - 20 mg : ORAL Patient Dose: 1 tab(s) Oral once a day. (18:01 [facility]) meTOPROLOL tartrate: TABLET : Strength - 25 mg : ORAL Patient Dose: 1 tab(s) Oral 2 times a day. (18:01 [facility]) Mirapex: TABLET : Strength - 0.5 mg : ORAL Patient Dose: 1 tab(s) Oral once a day. (18:02 [facility]) VITAL SIGNS VITAL SIGNS: BP: 94/50, Pulse: 80, Resp: 18 (Non-Labored), Temp: 99.1 (Oral), Pain: 1, O2 sat: 96 on Room Air, Time: 03/04/2016 16:58. (16:58 [facility]) BP: 81/50, Pulse: 82, Resp: 18 (Non-Labored), Pain: 1, O2 sat: 96 on Room Air, Time: 03/04/2016 17:35. (17:35 [facility]) BP: 89/49, Pulse: 80, Resp: 18 (Non-Labored), Pain: 1, O2 sat: 95 on Room Air, Time: 03/04/2016 17:40. (17:40 [facility]) BP: 97/58, Pulse: 76, Resp: 18 (Non-Labored), Pain: 1, O2 sat: 94 on Room Air, Time: 03/04/2016 17:50. (17:50 [facility]) BP: 106/55, Pulse: 95, Resp: 18 (Non-Labored), O2 sat: 95 on Room Air, Time: 03/04/2016 18:50. (18:50 [facility]) Temp: 98.5 (Oral), Time: 03/04/2016 19:17. (19:17 [facility]) BP: 101/70, Pulse: 83, Resp: 17 (Non-Labored), O2 sat: 96 on Room Air, Time: 03/04/2016 19:34. (19:34 [facility]) PHYSICAL EXAM (17:12 [facility]) CONSTITUTIONAL: Vital signs reviewed, Patient afebrile, Pulse normal, Blood pressure normal, Respiratory rate normal, Patient appears non toxic, Patient appears pain free, Patient alert and oriented to person, place and time. HEAD: Head exam normal, Head exam included findings of head atraumatic, normocephalic. EYES: Eye exam normal, Eye exam included findings of eyelids normal to inspection, Pupils equally round and reactive to light, Extraocular muscles intact, no nystagmus. ENT: ENT exam normal, Ear exam normal, external ear normal, tympanic membranes normal, no bleeding, Pharynx exam normal, Uvula exam normal, Tonsil exam normal, Mouth exam normal, mucous membranes moist, teeth normal. NECK: Neck exam normal, Neck exam included findings of normal &a-1R&a+25V*p+0X*[id number]*c202B*c15G*c2P*p-0X&a-25V&a+1R Name: Honey Cheng : 1945 F70 MedRec: [id number] AcctNum: [id number] Prepared: Sat Mar 04, 2016 21:03 by Interface Page 3 of 5 pMD [facility] EMERGENCY RECORD range of motion, Trachea midline, no meningeal signs, no cervical adenopathy, no tenderness. RESPIRATORY CHEST: Respiratory and chest exam normal, Respiratory exam included findings of no respiratory distress, Breath sounds clear. CARDIOVASCULAR: Cardiovascular assessment normal, Cardiovascular exam included findings of heart rate regular rate and rhythm, Heart sounds normal. ABDOMEN FEMALE: Abdominal exam included findings of abdomen tender, diffusely, mild intensity, Bowel sounds normal, no distension, no mass, no pulsatile masses, no peritoneal signs, no rigidity, no guarding, no rebound, Rovsing's sign absent, red blood in the ostomy bag. BACK: Back exam normal, Back exam included findings of normal inspection, range of motion normal, no tenderness. UPPER EXTREMITY: Upper extremity exam normal, Upper extremity exam included findings of inspection normal, Range of motion normal, Motor strength normal, Sensation intact, Radial pulse normal. LOWER EXTREMITY: Lower extremity exam normal, Lower extremity exam included findings of inspection normal, Range of motion normal, Motor strength normal, Sensation intact, Posterior tibial pulse normal, Pedal pulse normal. NEURO: Neuro exam normal, Neuro exam findings include patient oriented to person, place and time, Speech normal, Gait normal, Cranial nerves intact, no focal motor deficits, no focal sensory deficits. SKIN: Skin exam normal, Skin exam included findings of skin warm, dry, and normal in color, no rash. PSYCHIATRIC: Psychiatric exam normal, Normal affect. RADIOLOGYINTERPRETATION (20:53 [facility]) ABDOMEN: Abdomen/pelvis CT scan, Other findings: duodenal wall thickening, no signs of obstruction. MEDICATION ADMINISTRATION SUMMARY Drug Name: Zofran intravenous, Dose Ordered: 4 mg, Route: IV Push, Status: Given, Time: 19:45 03/04/2016, Drug Name: HumuLIN R, Dose Ordered: 8 units, Route: IV Push, Status: Given, Time: 17:56 03/04/2016, Drug Name: *sodium chloride 0.9 % intravenous, Dose Ordered: 1 L, Route: IV Fluid Infusion, Status: Given, Time: 17:37 03/04/2016, *Additional information available in notes, Detailed record available in Medication Service section. DOCTOR NOTES (20:53 [facility]) TEXT: Patient presented with hypotension and blood in her ostomy bag, and subsequent concern for GI bleed. IV fluids brought her blood pressure up slightly, but she still remained below her normal blood pressure levels. Radiology studies did not show &a-1R&a+25V*p+0X*f8135G*c202B*c15G*c2P*p-0X&a-25V&a+1R Name: Honey Cheng : 1945 F70 MedRec: [id number] AcctNum: [id number] Prepared: Sat Mar 04, 2016 21:03 by Interface Page 4 of 5 pMD [facility] EMERGENCY RECORD obstruction, but did demonstrate thickening of the second part of the duodenum. Her bleeding has mostly stopped, and while her labs are at baseline other than hyperglycemia, I believe her hypotension could be secondary to blood loss and she requires further workup and monitoring at a facility with telemetry. She will be transferred [facility] with [facility]. PATIENT STATUS: Patient has improved since arrival to emergency department. PATIENT PLAN: The patient requires a transfer and will be transferred, per physician request, due to availability of specialty care, Transfer form completed. DATA REVIEWED: Lab data reviewed, Xray data reviewed, Old records reviewed. PROBLEM LIST No recorded problems DIAGNOSIS (19:19 [facility]) FINAL: PRIMARY: GI bleed, ADDITIONAL: HYPOTENSION UNSPECIFIED. PRESCRIPTION No recorded prescriptions DISPOSITION PATIENT: Disposition Type: Transfer, Disposition: Transfer to [facility]. (19:19 [facility]) Patient left the department. (20:11 [facility]) Saini: AADK=CINTIA Jack, Maggy BOYDB=CINTIA Nguyễn, Danni PradoENCOM[facility]=MD Lakisha, Olivier DAS=CINTIA Rodriguez, Nancy QUIÑONESIB=CINTIA Malik, Tosha &a-1R&a+25V*p+0X*[id number]*c202B*c15G*c2P*p-0X&a-25V&a+1R Name: Honey Cheng : 1945 F70 MedRec: [id number] AcctNum: [id number] Prepared: Sat Mar 04, 2016 21:03 by Interface Page 5 of 5 pMD [facility]TDD
--- NOTE | 2016-03-04 20:50 | PICIS ---
[facility] EMERGENCY RECORD TRIAGE ([facility] Mar 04, 2016 16:56 LGIB) TRIAGE NOTES: bleeding from ostomy since 9;30 last night. has had this problem before but bleeding is worse per patient. ([facility] Mar 04, 2016 16:56 LGIB) PATIENT: NAME: Honey Cheng, AGE: 70, GENDER: female, : Sun 1945, TIME OF GREET: [facility] Mar 04, 2016 16:53, PREFERRED LANGUAGE: German, ETHNICITY: Not or , ECODE BILLING MAP: [facility], SSN: [id number], Zip Code: [address], KG WEIGHT: 63.50, PHONE: , , , PERSON ID: [id number], PAYMENT: [employer], PCP: MD Villalobos Warren. ([facility] Mar 04, 2016 16:56 LGIB) COMPLAINT: bleeding ostomy. ([facility] Mar 04, 2016 16:56 LGIB) ADMISSION: URGENCY: 3 Urgent, ADMISSION SOURCE: Home, TRANSPORT: CAR, BED: ER -02. ([facility] Mar 04, 2016 16:56 LGIB) SIRS SCORING: Heart Rate 55-109 (0), Temp range 96.8-101.1 (0), respiratory rate 12-24 (0), Mental Status altered: no (0), Total SIRS Score 0. (17:44 LGIB) PROVIDERS: TRIAGE NURSE: Tosha Malik RN. ([facility] Mar 04, 2016 16:56 LGIB) PREVIOUS VISIT ALLERGIES: Imuran, Phenergan Plain, tetanus-diphtheria toxoids-Td. ([facility] Mar 04, 2016 16:56 LGIB) Imuran, Phenergan Plain, tetanus-diphtheria toxoids-Td. (17:42 LGIB) KNOWN ALLERGIES azathioprine (Unconfirmed): Reaction: PANCREATITIS azathioprine sodium (Unconfirmed): Reaction: PANCREATITIS Bactrim DS Imuran: - Entered brand: Imuran Tab -- Entered brand: Imuran Tab -- Entered brand: Imuran Tab Phenergan Plain: - "restless legs" promethazine HCl (Unconfirmed): Reaction: RESTLESS LEGS Sulfa (Sulfonamide Antibiotics) (Unconfirmed) sulfamethoxazole (Unconfirmed) tetanus and diphtheria toxoids (Unconfirmed): Reaction: Hives tetanus-diphtheria toxoids-Td: - ANAPHALYXIS trimethoprim (Unconfirmed) CURRENT MEDICATIONS Unable to obtain (17:48 LGIB) Synthroid: TABLET : Strength - 25 mcg : ORAL Patient Dose: 1 tab(s) Oral once a day. (17:58 LGIB) Klor-Con 10: TABLET, EXTENDED RELEASE : Strength - 10 mEq : ORAL Patient Dose: Unknown. (17:58 LGIB) Lasix: TABLET : Strength - 40 mg : ORAL Patient Dose: 1 tab(s) Oral once a day. (17:59 LGIB) Pentasa: CAPSULE, EXTENDED RELEASE : Strength - 500 mg : ORAL &a-1R&a+25V*p+0X*f0897E*c202B*c15G*c2P*p-0X&a-25V&a+1R Name: Honey Cheng : 1945 F70 MedRec: [id number] AcctNum: [id number] Prepared: Sat Mar 04, 2016 21:09 by Interface Page 1 of 12 pMD [facility] RECORD Patient Dose: 2 tab(s) Oral 2 times a day. (17:59 LGIB) aspirin: TABLET : Strength - 81 mg : ORAL Patient Dose: 1 tab(s) Oral once a day. (18:00 LGIB) Levemir: VIAL (ML) : Strength - 100 unit/mL : SUBCUTANEOUS Patient Dose: 10 units Subcutaneous once a day. (18:00 LGIB) ursodiol: CAPSULE : Strength - 300 mg : ORAL Patient Dose: 1 cap(s) Oral 2 times a day. (18:00 LGIB) atorvastatin: TABLET : Strength - 10 mg : ORAL Patient Dose: 1 tab(s) Oral once a day. (18:01 LGIB) CeleXA: TABLET : Strength - 20 mg : ORAL Patient Dose: 1 tab(s) Oral once a day. (18:01 LGIB) meTOPROLOL tartrate: TABLET : Strength - 25 mg : ORAL Patient Dose: 1 tab(s) Oral 2 times a day. (18:01 LGIB) Mirapex: TABLET : Strength - 0.5 mg : ORAL Patient Dose: 1 tab(s) Oral once a day. (18:02 LGIB) VITAL SIGNS VITAL SIGNS: BP: 94/50, Pulse: 80, Resp: 18 (Non-Labored), Temp: 99.1 (Oral), Pain: 1, O2 sat: 96 on Room Air, Time: 03/04/2016 16:58. (16:58 LGIB) BP: 81/50, Pulse: 82, Resp: 18 (Non-Labored), Pain: 1, O2 sat: 96 on Room Air, Time: 03/04/2016 17:35. (17:35 LGIB) BP: 89/49, Pulse: 80, Resp: 18 (Non-Labored), Pain: 1, O2 sat: 95 on Room Air, Time: 03/04/2016 17:40. (17:40 LGIB) BP: 97/58, Pulse: 76, Resp: 18 (Non-Labored), Pain: 1, O2 sat: 94 on Room Air, Time: 03/04/2016 17:50. (17:50 LGIB) BP: 106/55, Pulse: 95, Resp: 18 (Non-Labored), O2 sat: 95 on Room Air, Time: 03/04/2016 18:50. (18:50 LGIB) Temp: 98.5 (Oral), Time: 03/04/2016 19:17. (19:17 AADK) BP: 101/70, Pulse: 83, Resp: 17 (Non-Labored), O2 sat: 96 on Room Air, Time: 03/04/2016 19:34. (19:34 KSPL) NURSING ASSESSMENT: FALL RISK (18:56 LGIB) FALL RISK: Fall risk assessment findings include: no history of falls (0), No bed rest greater than 2 days (0), No use of level of consciousness altering agents with mentation or cognitive changes (0), Change in blood pressure (1), No sensory deficits (0), Impaired mobility (3), No neurologic diagnosis (0), No elimination problems (0), No confusion (0), Total score 4. NURSING ASSESSMENT: HEAD-TO-TOE CONSTITUTIONAL: Complex assessment performed, Patient arrives, &a-1R&a+25V*p+0X*l6221Y*c202B*c15G*c2P*p-0X&a-25V&a+1R Name: Honey Cheng : 1945 F70 MedRec: [id number] AcctNum: [id number] Prepared: Sat Mar 04, 2016 21:09 by Interface Page 2 of 12 pMD [facility] RECORD via hospital wheelchair, Unsteady gait, Assistance to cart, History obtained from patient, Patient appears comfortable, Patient cooperative, Patient alert, Oriented to person, place and time, Skin warm, Skin dry, Skin normal in color, Mucous membranes pink, Mucous membranes moist, Patient is well-groomed, Patient complains of bleeding ostomy, pt reports ostomy bleeding since 9:30PM last night. Pt unsure whether blood is coming from around stoma or inside stoma. Reports feeling weak. Pt states she has emptied her bag full of blood 8 times since the bleeding began. NAD, RR even and unlabored. (17:10 LGIB) SKIN: Skin assessment findings include skin warm, Skin dry, Skin normal in color, Notes: Pt has stoma that is healthy but seeping blood around the outside of stoma. No signs of infection or discoloration. Pt has no skin breakdown or concern for pressure ulcers. (18:07 LGIB) RESPIRATORY/CHEST: Breath sounds clear, Respiratory assessment findings include respiratory effort easy, Respirations regular, Conversing normally, Neck and chest exam findings include trachea midline, Chest expansion equal, Chest movement symmetrical, no signs of distress, no retractions noted, no cyanosis. (18:07 LGIB) CARDIOVASCULAR: Cardiovascular assessment findings include heart rate normal, Left radial pulse +3(easily palpated, considered normal), Right radial pulse +3(easily palpated, considered normal), Left dorsalis pedis pulse +3(easily palpated, considered normal), Right dorsalis pedis pulse +3(easily palpated, considered normal), No associated diaphoresis, no associated dyspnea, no associated dizziness. (18:07 LGIB) ABDOMEN: Abdomen assessment findings include abdomen symmetrical, Abdomen soft, non-tender, Bowel sound normal, no associated nausea, no associated vomiting, no associated diarrhea. (18:07 LGIB) GENITOURINARY FEMALE: Notes: no complaints. (18:07 LGIB) SAFETY: Side rails up, Cart/Stretcher in lowest position, Family at bedside, Call light within reach, Hospital ID band on. (18:07 LGIB) NURSING PROCEDURE: CRANE ENGINEER (16:56 LGIB) CRANE ENGINEER: Patient placed on non-invasive blood pressure monitor, Patient placed on continuous pulse oximetry. NURSING PROCEDURE: IV (17:35 LGIB) IV SITE 1: IV therapy indicated for hydration, IV therapy indicated for medication administration, IV established, to the left forearm, using an 18 gauge catheter, in three attempts, Saline lock established, Flushed with normal saline (mls): 10, Labs drawn at time of placement, labeled in the presence of the patient and sent to lab. NURSING PROCEDURE: NURSE NOTES NURSES NOTES: Notes: CINTIA Bach changed ostomy bag after patient laid down on stretcher. Will monitor over the next hour and &a-1R&a+25V*p+0X*e6255W*c202B*c15G*c2P*p-0X&a-25V&a+1R Name: Honey Cheng : 1945 F70 MedRec: [id number] AcctNum: [id number] Prepared: Sat Mar 04, 2016 21:09 by Interface Page 3 of 12 pMD [facility] RECORD evaluate blood loss. (17:05 LGIB) Notes: OSTOMY BAG FULL OF STOOL BUT NO BLOOD IS SEEN. NO BLEEDING AT THIS TIME FROM THE STOMA. (19:07 LGIB) Notes: REPORT GIVEN TO CINTIA BARRETT. NAD, RR EVEN AND UNLABORED. (19:07 LGIB) NURSING PROCEDURE: TRANSPORT TO TESTS TRANSPORT TO TESTS: Transport indicated to facilitate diagnosis, Patient transported to CT scan, via cart, Accompanied by x-ray civil technician. (18:10 LGIB) FOLLOW-UP: After procedure, patient returned to emergency department. (18:15 LGIB) ORDER DETAILS Order Name: CBC with Differential, Status: Active, Time: 19:13 03/04/2016, User: MAO, - Ordered for: MD Banuelos Jason, - Entered by: MD Banuelos Jason - Sat Mar 04, 2016 19:13, - Quantity: 1, Order Name: CBC with Differential, Status: Active, Time: 19:13 03/04/2016, User: AADK, - Ordered for: MD Banuelos Jason, - Entered by: CINTIA Jack, Maggy - [facility] Mar 04, 2016 19:13, - Quantity: 1, Order Name: CBC with Differential, Status: Active, Time: 17:01 03/04/2016, User: MAO, - Ordered for: MD Banuelos Jason, - Entered by: MD Banuelos Jason - Sat Mar 04, 2016 17:01, - Quantity: 1, Order Name: Comprehensive Metabolic Panel, Status: Active, Time: 17:01 03/04/2016, User: MAO, - Ordered for: MD Banuelos Jason, - Entered by: MD Banuelos Jason - [facility] Mar 04, 2016 17:01, - Quantity: 1, Order Name: CT Abdomen Pelvis W Con, Status: Canceled, Time: 18:09 03/04/2016, User: System, - Ordered for: MD Banuelos Jason, - Entered by: MD Banuelos Jason - Sat Mar 04, 2016 17:19, - Quantity: 1, Order Name: Lactic Acid with repeat, Status: Active, Time: 17:08 03/04/2016, User: MAO, - Ordered for: MD Banuelos Jason, - Entered by: MD Banuelos Jason - [facility] Mar 04, 2016 17:08, - Quantity: 1, Order Name: Lipase, Status: Active, Time: 17:08 03/04/2016, User: MAO, - Ordered for: MD Banuelos Jason, - Entered by: MD Banuelos Jason - Sat Mar 04, 2016 17:08, - Quantity: 1, &a-1R&a+25V*p+0X*c5980Y*c202B*c15G*c2P*p-0X&a-25V&a+1R Name: Honey Cheng : 1945 F70 MedRec: [id number] AcctNum: [id number] Prepared: Sat Mar 04, 2016 21:09 by Interface Page 4 of 12 D [facility] RECORD Order Name: Protime with INR, Status: Active, Time: 17:01 03/04/2016, User: MAO, - Ordered for: MD Banuelos Jason, - Entered by: MD Banuelos Jason - Sat Mar 04, 2016 17:01, - Quantity: 1, Order Name: PTT, Status: Active, Time: 17:01 03/04/2016, User: MAO, - Ordered for: MD Banuelos Jason, - Entered by: MD Banuelos Jason - Sat Mar 04, 2016 17:01, - Quantity: 1, Order Name: SALINE LOCK, Status: Done, Time: 17:40 03/04/2016, User: NURIA, - Ordered for: MD Banuelos Jason, - Entered by: MD Banuelos Jason - Sat Mar 04, 2016 17:01, - Quantity: 1, Order Name: Type & Screen, Status: Active, Time: 17:01 03/04/2016, User: MAO, - Ordered for: MD Banuelos Jason, - Entered by: MD Banuelos Jason - Sat Mar 04, 2016 17:01, - Quantity: 1. MEDICATION ADMINISTRATION SUMMARY Drug Name: Zofran intravenous, Dose Ordered: 4 mg, Route: IV Push, Status: Given, Time: 19:45 03/04/2016, Drug Name: HumuLIN R, Dose Ordered: 8 units, Route: IV Push, Status: Given, Time: 17:56 03/04/2016, Drug Name: *sodium chloride 0.9 % intravenous, Dose Ordered: 1 L, Route: IV Fluid Infusion, Status: Given, Time: 17:37 03/04/2016, *Additional information available in notes, Detailed record available in Medication Service section. MEDICATION SERVICE HumuLIN R: Order: HumuLIN R (insulin regular, human) - Dose: 8 units : IV Push Ordered by: Olivier Banuelos MD Entered by: Olivier Banuelos MD Sat Mar 04, 2016 17:47 , Acknowledged by: Tosha Malik RN Sat Mar 04, 2016 17:48 Documented as given by: Tosha Malik RN Sat Mar 04, 2016 17:56 Patient, Medication, Dose, Route and Time verified prior to administration. IV SITE #1 IVP, initial medication, Slowly, Catheter placement confirmed via flush prior to administration, IV site without signs or symptoms of infiltration during medication administration, No swelling during administration, No drainage during administration, IV flushed after administration, Correct patient, time, route, dose and medication confirmed prior to administration, Patient advised of actions and side-effects prior to administration, Allergies confirmed and medications reviewed prior to administration, Patient in position of comfort, Side rails up, Cart in lowest position, Family at bedside, &a-1R&a+25V*p+0X*j2949N*c202B*c15G*c2P*p-0X&a-25V&a+1R Name: Honey Cheng : 1945 F70 MedRec: [id number] AcctNum: [id number] Prepared: Sat Mar 04, 2016 21:09 by Interface Page 5 of 12 pMD [facility] RECORD Co-signed by: Mikala Kingsley RN Sat Mar 04, 2016 19:00. sodium chloride 0.9 % intravenous: Order: sodium chloride 0.9 % intravenous (0.9 % sodium chloride) - Dose: 1 L : IV Fluid Infusion Notes: (Bolus) Ordered by: Olivier Banuelos MD Entered by: Olivier Banuelos MD Sat Mar 04, 2016 17:09 , Acknowledged by: Tosha Malik RN Sat Mar 04, 2016 17:13 Documented as given by: Tosha Malik RN Sat Mar 04, 2016 17:37 Patient, Medication, Dose, Route and Time verified prior to administration. IV SITE #1 IV fluids established for hydration, IV SITE #1 into left forearm, IV SITE #1 1st bag hung, amount 1 Liter hung, via primary tubing, Catheter placement confirmed via flush prior to administration, IV site without signs or symptoms of infiltration during medication administration, No swelling during administration, No drainage during administration, IV flushed after administration, Correct patient, time, route, dose and medication confirmed prior to administration, Patient advised of actions and side-effects prior to administration, Allergies confirmed and medications reviewed prior to administration, Patient in position of comfort, Side rails up, Cart in lowest position, Family at bedside. Zofran intravenous: Order: Zofran intravenous (ondansetron HCl) - Dose: 4 mg : IV Push Ordered by: Olivier Banuelos MD Entered by: Olivier Banuelos MD Sat Mar 04, 2016 17:57 , Acknowledged by: Tosha Malik RN Sat Mar 04, 2016 17:57, Held by: Tosha Malik RN Sat Mar 04, 2016 18:15 Reason: Patient refused:Symptoms controlled at present Documented as given by: Mikala Kingsley RN Sat Mar 04, 2016 19:45 Patient, Medication, Dose, Route and Time verified prior to administration. Amount given: 4mg, IV SITE #1 IVP, subsequent different medication, Slowly, Catheter placement confirmed via flush prior to administration, IV site without signs or symptoms of infiltration during medication administration, No swelling during administration, No drainage during administration, IV flushed after administration, Correct patient, time, route, dose and medication confirmed prior to administration, Patient advised of actions and side-effects prior to administration, Allergies confirmed and medications reviewed prior to administration, Patient in position of comfort, Side rails up, Cart in lowest position, Family at bedside. HPI OSTOMY COMPLAINT (17:10 [facility]) CHIEF COMPLAINT: Patient presents for evaluation of bleeding from, ileostomy. HISTORIAN: History provided by patient, 70F presents with complaints of blood in her ostomy bag. States that she began noticing blood in the ostomy bag yesterday evening around 930, and has changed the bag 8 times since then with continual bleeding. Voices only &a-1R&a+25V*p+0X*t6438J*c202B*c15G*c2P*p-0X&a-25V&a+1R Name: Honey Cheng : 1945 F70 MedRec: [id number] AcctNum: [id number] Prepared: Sat Mar 04, 2016 21:09 by Interface Page 6 of 12 pMD [facility] RECORD minimal pain in her abdomen, denies nausea of vomiting, denies back pain or chest pain, denies urinary complaints. Was previously inpatient here for resistant UTI. LOCATION FEMALE: No localizing symptoms. QUALITY: Pain is dull in nature, described as aching. TIME COURSE: Sudden onset of symptoms. ASSOCIATED WITH FEMALE: Associated with abdominal pain, No associated fever. EXACERBATED BY: Patient's condition exacerbated by nothing. RELIEVED BY: Patient's condition relieved by nothing. ROS (17:12 [facility]) CONSTITUTIONAL: Negative constitutional review of systems, Historian denies chills, denies fever. EYES: Negative eye review of systems, Historian denies eye pain, denies vision changes. ENT: Negative ears, nose, throat review of systems, Historian denies rhinorrhea, denies sore throat, denies voice changes. CARDIOVASCULAR: Negative cardiovascular review of systems, Historian denies chest pain, denies palpitations. RESPIRATORY: Negative respiratory review of systems, Historian denies cough, denies shortness of breath. GI: Historian reports abdominal pain, reports hematochezia. mild abdominal pain with blood from the ostomy output. Denies nausea or vomiting. GENITOURINARY FEMALE: Negative genitourinary review of systems, Historian denies dysuria, denies frequency. MUSCULOSKELETAL: Negative musculoskeletal review of systems, Historian denies back pain, denies fall, denies injury. SKIN: Negative skin review of systems, Historian denies rash, denies skin changes. NEUROLOGIC: Negative neurologic review of systems, Historian denies headache, denies mental status changes, denies paralysis, denies paresthesias, denies sensory changes. HEMO/LYMPHATIC: Normal hematologic/lymphatic system review, Historian denies abnormal blood clotting. ALLERGIC/IMMUNOLOGIC: Normal allergy/immunologic system review, Historian denies frequent infections. PAST MEDICAL HISTORY (17:42 LGIB) MEDICAL HISTORY: Past medical history includes endocrine disease, hypothyroidism, Past medical history includes gastrointestinal disease, crohns, DM II, anemia, GI bleed. ischemic cerebral vascular accident x 2, TIA x1 Notes: myocardial infarction, diabetes, Type II, on insulin, coronary artery disease, h/o MRSA infection,hx of acute renal failure. Fx of RArm in 3 places, FX COCYX. Verified 03/04/16. FEMALE SURGICAL HISTORY: CBG, abd wall abscess. 2004 COLON SURGERY; JUANIS JAMES, coronary artery bypass graft surgery, four &a-1R&a+25V*p+0X*k3576P*c202B*c15G*c2P*p-0X&a-25V&a+1R Name: Honey Cheng : 1945 F70 MedRec: [id number] AcctNum: [id number] Prepared: Sat Mar 04, 2016 21:09 by Interface Page 7 of 12 pMD [facility] RECORD vessels, Date of surgery 10/2008, umbilical hernia repair, double, Date of surgery 06/16/2009, ileostomy, Date of surgery 2008, tonsillectomy. total colectomy 2013. colostomy bag placed. Verified . PSYCHIATRIC HISTORY: Psychiatric history includes, anxiety, depression. Verified . SOCIAL HISTORY: Patient is a former tobacco user, smoked cigarettes, Patient quit smoking more than 10 years ago, Patient denies alcohol use, Patient denies drug use. Verified 03/04/16. FAMILY HISTORY: Family history is not significant. PHYSICAL EXAM (17:12 [facility]) CONSTITUTIONAL: Vital signs reviewed, Patient afebrile, Pulse normal, Blood pressure normal, Respiratory rate normal, Patient appears non toxic, Patient appears pain free, Patient alert and oriented to person, place and time. HEAD: Head exam normal, Head exam included findings of head atraumatic, normocephalic. EYES: Eye exam normal, Eye exam included findings of eyelids normal to inspection, Pupils equally round and reactive to light, Extraocular muscles intact, no nystagmus. ENT: ENT exam normal, Ear exam normal, external ear normal, tympanic membranes normal, no bleeding, Pharynx exam normal, Uvula exam normal, Tonsil exam normal, Mouth exam normal, mucous membranes moist, teeth normal. NECK: Neck exam normal, Neck exam included findings of normal range of motion, Trachea midline, no meningeal signs, no cervical adenopathy, no tenderness. RESPIRATORY CHEST: Respiratory and chest exam normal, Respiratory exam included findings of no respiratory distress, Breath sounds clear. CARDIOVASCULAR: Cardiovascular assessment normal, Cardiovascular exam included findings of heart rate regular rate and rhythm, Heart sounds normal. ABDOMEN FEMALE: Abdominal exam included findings of abdomen tender, diffusely, mild intensity, Bowel sounds normal, no distension, no mass, no pulsatile masses, no peritoneal signs, no rigidity, no guarding, no rebound, Rovsing's sign absent, red blood in the ostomy bag. BACK: Back exam normal, Back exam included findings of normal inspection, range of motion normal, no tenderness. UPPER EXTREMITY: Upper extremity exam normal, Upper extremity exam included findings of inspection normal, Range of motion normal, Motor strength normal, Sensation intact, Radial pulse normal. LOWER EXTREMITY: Lower extremity exam normal, Lower extremity exam included findings of inspection normal, Range of motion normal, Motor strength normal, Sensation intact, Posterior tibial pulse normal, Pedal pulse normal. NEURO: Neuro exam normal, Neuro exam findings include patient oriented to person, place and time, Speech normal, Gait normal, &a-1R&a+25V*p+0X*z9949R*c202B*c15G*c2P*p-0X&a-25V&a+1R Name: Honey Cheng : 1945 F70 MedRec: [id number] AcctNum: [id number] Prepared: Sat Mar 04, 2016 21:09 by Interface Page 8 of 12 pMD [facility] RECORD Cranial nerves intact, no focal motor deficits, no focal sensory deficits. SKIN: Skin exam normal, Skin exam included findings of skin warm, dry, and normal in color, no rash. PSYCHIATRIC: Psychiatric exam normal, Normal affect. LAB INTERPRETATION (20:52 JJA) INTERPRETATION: I reviewed the lab results, CBC normal, Chemistry abnormal, Sodium decreased, Glucose elevated, BUN elevated, Creatinine elevated, Lipase abnormal, elevated, Lactate normal. EVENTS TRANSFER: Triage to Emergency Emergency Room -02. (16:56 LGIB) Removed from Emergency Emergency Room -02. (20:11 [facility]) RADIOLOGYINTERPRETATION (20:53 JJA) ABDOMEN: Abdomen/pelvis CT scan, Other findings: duodenal wall thickening, no signs of obstruction. DOCTOR NOTES (20:53 JJAC) TEXT: Patient presented with hypotension and blood in her ostomy bag, and subsequent concern for GI bleed. IV fluids brought her blood pressure up slightly, but she still remained below her normal blood pressure levels. Radiology studies did not show obstruction, but did demonstrate thickening of the second part of the duodenum. Her bleeding has mostly stopped, and while her labs are at baseline other than hyperglycemia, I believe her hypotension could be secondary to blood loss and she requires further workup and monitoring at a facility with telemetry. She will be transferred to the Main hospital with EMS. PATIENT STATUS: Patient has improved since arrival to emergency department. PATIENT PLAN: The patient requires a transfer and will be transferred, per physician request, due to availability of specialty care, Transfer form completed. DATA REVIEWED: Lab data reviewed, Xray data reviewed, Old records reviewed. PROBLEM LIST No recorded problems DIAGNOSIS (19:19 JJA) FINAL: PRIMARY: GI bleed, ADDITIONAL: HYPOTENSION UNSPECIFIED. DISPOSITION PATIENT: Disposition Type: Transfer, Disposition: Transfer to [facility]. (19:19 [facility]) &a-1R&a+25V*p+0X*b2123V*c202B*c15G*c2P*p-0X&a-25V&a+1R Name: Honey Cheng : 1945 F70 MedRec: [id number] AcctNum: [id number] Prepared: Sat Mar 04, 2016 21:09 by Interface Page 9 of 12 pMD [facility] RECORD Patient left the department. (20:11 [facility]) PRESCRIPTION No recorded prescriptions IMAGING *MEMORANDUM OF TRANSFER: Image captured from scanner. (19:29 KSPL) PHYSICIAN CERTIFICATION STATEMENT: Image captured from scanner. (19:30 KSPL) CONSENTS: Image captured from scanner. (19:30 KSPL) *SUPPLY CHARGE SHEET: Image captured from scanner. (19:30 KSPL) ADMIN (20:55 [facility]) DIGITAL SIGNATURE: MD Banuelos Jason. RESULTS LABORATORY: CBC with Differential Collection DT: Sat Mar 04, 2016 17:14, White Blood Cell (WBC) Count 9.0 thou/uL, Range (4.8-10.8), *Red Blood Cell (RBC) Count 3.62 - L mill/uL, Range (4.20-5.40), *Hemoglobin 11.2 - L g/dL, Range (12.0-16.0), *Hematocrit 33.3 - L %, Range (36.0-47.0), Mean Corpuscular Volume 92.0 fl, Range (81.0-99.0), Mean Corpuscular Hemoglobin 30.9 pg, Range (27.0-31.0), Mean Corpuscular HGB CONC 33.6 g/dL, Range (32.0-36.0), RBC Distribution Width 13.6 %, Range (11.5-14.5), *Platelet Count 117 - L thou/uL, Range (130-400), Mean Platelet Volume 7.9 fL, Range (7.4-10.4), *%Neutrophils 83.8 - H %, Range (42.0-75.0), *%Lymphocytes 6.9 - L %, Range (21.0-51.0), %Monocytes 6.0 %, Range (0.0-10.0), %Eosinophils 2.1 %, Range (0.0-10.0), *%Basophils 1.1 - H %, Range (0.0-1.0), *#Neutrophils 7.6 - H thou/uL, Range (1.40-6.50), *#Lymphocytes 0.6 - L thou/uL, Range (1.20-3.40), #Monocytes 0.5 thou/uL, Range (0.11-0.59), #Eosinphils 0.2 thou/uL, Range (0.0-0.7), #Basophils 0.1 thou/uL, Range (0.0-0.2). (19:33 [facility]) BLOOD BANK: Type & Screen: [id number] Collection DT: [facility] Mar 04, 2016 17:14, See comment below , Received Blood Or Been w/in Past 90 Days? UNKNOWN, Blood Type & Rh A POSITIVE - N 1, Antibody Screen NEGATIVE - N 1. (19:33 [facility]) LABORATORY: Lipase Collection DT: [facility] Mar 04, 2016 17:14, *Lipase 111 - H U/L, Range (8-78). (19:33 [facility]) Comprehensive Metabolic Panel Collection DT: [facility] Mar 04, 2016 17:14, &a-1R&a+25V*p+0X*h4148T*c202B*c15G*c2P*p-0X&a-25V&a+1R Name: Honey Cheng : 1945 F70 MedRec: [id number] AcctNum: [id number] Prepared: [facility] Mar 04, 2016 21:09 by Interface Page 10 of 12 pMD [facility] RECORD *Sodium 129 - L mmol/L, Range (136-145), Potassium 4.2 mmol/L, Range (3.5-5.1), Chloride 101 mmol/L, Range (98-107), *Carbon Dioxide 18 - L mmol/L, Range (23-31), Anion Gap 14 mmol/L, Range (10-20), *BUN (Urea Nitrogen) 30 - H mg/dL, Range (9.8-20.1), *Creatinine 1.49 - H mg/dL, Range (0.6-1.1), Estimated GFR-MDRD 35 , Reference Range for Estimated GFR: Greater than 90, mL/min/1.73 m2 NOTE: The MDRD equation has not been validated for use, with the elderly (over 70 years of age), women, patients with, serious comorbid condition or persons with extremes of body size, muscle, mass, or nutritional status. , *Glucose 484 - H mg/dL, Range (80-115), Calcium 8.7 mg/dL, Range (7.8-10.44), Bilirubin, Total 0.3 mg/dL, Range (0.2-1.2), Protein, Total 7.1 g/dL, Range (5.8-8.1), NOTE: Plasma values are generally 0.3 to 0.5 g/dL higher than serum values, due to the presence of fibrinogen. , *Albumin 2.9 - L g/dL, Range (3.4-4.8), *Globulin 4.2 - H g/dL, Range (2.4-3.5), *Alb/Glob Ratio 0.7 - L g/dL, Range (1.2-2.2), Alkaline Phosphatase 91 U/L, Range (40-150), AST (SGOT) 26 U/L, Range (5-34), ALT (SGPT) 33 U/L, Range (0-55). (19:33 [facility]) Lactic Acid for Sepsis Collection DT: Sat Mar 04, 2016 17:14, Lactic Acid - Sepsis 2.1 mmol/L, Range (0.5-2.2). (19:33 [facility]) PTT Collection DT: [facility] Mar 04, 2016 17:14, See comment below , Anticoagulant? NONE Medical Necessity SUSPECT COAGULOPATHY , *PTT 22.4 - L SEC, Range (22.9-36.1). (19:33 [facility]) Protime with INR Collection DT: [facility] Mar 04, 2016 17:14, See comment below , Anticoagulant? NONE Medical Necessity SUSPECT COAGULOPATHY , *Prothrombin Time 14.9 - H SEC, Range (12.0-14.7), INR-International Normal Ratio 1.1 , ATTENTION: READ CAREFULLY , The, recommended therapeutic ranges for oral anticoagulant treatments are: , , Low Intensity: 1.5 - 2.0 Moderate Intensity: 2.0, - 3.0 High Intensity (1): 2.5 - 3.5 &a-1R&a+25V*p+0X*n8371J*c202B*c15G*c2P*p-0X&a-25V&a+1R Name: Honey Cheng Kate : 1945 F70 MedRec: [id number] AcctNum: [id number] Prepared: Brice Mar 04, 2016 21:09 by Interface Page 11 of 12 pMD [facility] REC[facility] High, Intensity (2): 3.0 - 4.0 CRITICAL: >, 4.0 . (19:33 [facility]) CBC with Differential Collection DT: Sat Mar 04, 2016 19:29, White Blood Cell (WBC) Count 10.1 thou/uL, Range (4.8-10.8), *Red Blood Cell (RBC) Count 3.34 - L mill/uL, Range (4.20-5.40), *Hemoglobin 10.1 - L g/dL, Range (12.0-16.0), *Hematocrit 30.3 - L %, Range (36.0-47.0), Mean Corpuscular Volume 90.9 fl, Range (81.0-99.0), Mean Corpuscular Hemoglobin 30.4 pg, Range (27.0-31.0), Mean Corpuscular HGB CONC 33.5 g/dL, Range (32.0-36.0), RBC Distribution Width 13.2 %, Range (11.5-14.5), *Platelet Count 92 - L thou/uL, Range (130-400), HX OF LOW PLATELETS, Mean Platelet Volume 7.9 fL, Range (7.4-10.4), *%Neutrophils 79.1 - H %, Range (42.0-75.0), *%Lymphocytes 9.6 - L %, Range (21.0-51.0), %Monocytes 8.8 %, Range (0.0-10.0), %Eosinophils 1.9 %, Range (0.0-10.0), %Basophils 0.7 %, Range (0.0-1.0), *#Neutrophils 8.0 - H thou/uL, Range (1.40-6.50), *#Lymphocytes 1.0 - L thou/uL, Range (1.20-3.40), *#Monocytes 0.9 - H thou/uL, Range (0.11-0.59), #Eosinphils 0.2 thou/uL, Range (0.0-0.7), #Basophils 0.1 thou/uL, Range (0.0-0.2). (19:53 [facility]) Saini: SLIM=CINTIA Jack, Maggy MUELLER=CINTIA Nguyễn, Danni CAVANAUGH=MD Lakisha, Olivier KSPL=CINTIA Rodriguez, Nancy LGIB=CINTIA Malik, Tosha &a-1R&a+25V*p+0X*o6344D*c202B*c15G*c2P*p-0X&a-25V&a+1R Name: Honey Cheng : 1945 F70 MedRec: [id number] AcctNum: [id number] Prepared: Brice Mar 04, 2016 21:09 by Interface Page 12 of 12 pMD MTDD
== END 2016-03-04 19:55 | disposition short-term general hospital (02) ==
LOC: BURERS 16:52
DX: K92.2 Gastrointestinal hemorrhage, unspecified (principal); I95.9 Hypotension, unspecified; E03.9 Hypothyroidism, unspecified; E11.9 Type 2 diabetes mellitus without complications; I25.2 Old myocardial infarction; I25.10 Atherosclerotic heart disease of native coronary artery without angina pectoris; F41.9 Anxiety disorder, unspecified; F32.9 Major depressive disorder, single episode, unspecified; Z87.891 Personal history of nicotine dependence
CPT/HCPCS: 36416; 74176; 80053; 83605; 83690; 85025; 85610; 85730; 86850; 86900; 86901; 96361; 96374; 96375; J1815; J2405

== ENCOUNTER 2016-03-12 08:33 | Emergency (ER) | payer MEDICARE, MEDICAID ==
[2016-03-12 09:56] LABS: ALT (SGPT) 20 U/L (0-55); AST (SGOT) 23 U/L (5-34); Alkaline Phosphatase 75 U/L (40-150); Anion Gap 11 mmol/L (10-20); BUN (Urea Nitrogen) 20 mg/dL (9.8-20.1); Bilirubin, Total 0.3 mg/dL (0.2-1.2); Calc. Creatinine Clearance 0 mL/min (70-130); Calcium 8.5 mg/dL (7.8-10.44); Carbon Dioxide 23 mmol/L (23-31); Chloride 104 mmol/L (98-107); Estimated GFR-MDRD 42; Protein, Total 6.8 g/dL (5.8-8.1)
[2016-03-12 10:04] LABS: #Eosinphils 0.1 thou/uL (0.0-0.7); #Lymphocytes 0.5 thou/uL (1.20-3.40); #Monocytes 0.3 thou/uL (0.11-0.59); #Neutrophils 2.8 thou/uL (1.40-6.50); %Basophils 1.2 % (0.0-1.0); %Eosinophils 2.5 % (0.0-10.0); %Monocytes 7.2 % (0.0-10.0); Anisocytosis SLIGHT = 6-15 cells (100X) (0-5/hpf); Lactic Acid - Sepsis 1.1 mmol/L (0.5-2.2); Mean Platelet Volume 7.1 fL (7.4-10.4); White Blood Cell (WBC) Count 3.7 thou/uL (4.8-10.8)
--- NOTE | 2016-03-12 10:42 | ERRECORD ---
[facility] EMERGENCY RECORD HPI ABDOMINAL PAIN (08:53 [facility] CHIEF COMPLAINTS: Patient presents for evaluation of abdominal pain. HISTORIAN: History provided by patient, 70F presents to the ED with complaints of nausea and abdominal pain that began this morning. She is well known to the department here. has continuing GI issues secondary to multiple surgeries. Denies vomiting, denies decreased ostomy output. Describes cramping sharp upper abdominal pain. Patient feels she is dehydrated. LOCATION FEMALE: Symptoms are localized, most severe in the epigastrium. QUALITY: Pain is dull in nature, described as cramping. TIME COURSE: Sudden onset of symptoms, Symptoms are intermittent, Symptoms are improving. ASSOCIATED WITH FEMALE: No associated constipation, Associated with nausea, No associated vomiting. EXACERBATED BY: Patient's condition exacerbated by nothing. ROS (08:58 JJA) CONSTITUTIONAL: Negative constitutional review of systems, Historian denies chills, denies fever. EYES: Negative eye review of systems, Historian denies eye pain, denies vision changes. ENT: Negative ears, nose, throat review of systems, Historian denies rhinorrhea, denies sore throat, denies voice changes. CARDIOVASCULAR: Negative cardiovascular review of systems, Historian denies chest pain, denies palpitations. RESPIRATORY: Negative respiratory review of systems, Historian denies cough, denies shortness of breath. GI: Historian reports abdominal pain, reports nausea. GENITOURINARY FEMALE: Negative genitourinary review of systems, Historian denies dysuria, denies frequency. MUSCULOSKELETAL: Negative musculoskeletal review of systems, Historian denies back pain, denies fall, denies injury. SKIN: Negative skin review of systems, Historian denies rash, denies skin changes. NEUROLOGIC: Negative neurologic review of systems, Historian denies headache, denies mental status changes, denies paralysis, denies paresthesias, denies sensory changes. HEMO/LYMPHATIC: Normal hematologic/lymphatic system review, Historian denies abnormal blood clotting. ALLERGIC/IMMUNOLOGIC: Normal allergy/immunologic system review, Historian denies frequent infections. PAST MEDICAL HISTORY (08:40 KMOR) MEDICAL HISTORY: Past medical history includes endocrine disease, hypothyroidism, Past medical history includes gastrointestinal disease, crohns, DM II, anemia, GI bleed. ischemic cerebral vascular accident x 2, TIA x1 Notes: myocardial infarction, &a-1R&a+25V*p+0X*n0136G*c202B*c15G*c2P*p-0X&a-25V&a+1R Name: Honey Cheng : 1945 F70 MedRec: [id number] AcctNum: [id number] Prepared: Prachi Mar 12, 2016 10:53 by Interface Page 1 of 5 pMD [facility] EMERGENCY RECORD diabetes, Type II, on insulin, coronary artery disease, h/o MRSA infection,hx of acute renal failure. Fx of RArm in 3 places, FX COCYX. FEMALE SURGICAL HISTORY: CBG, abd wall abscess. 2003 COLON SURGERY; TUMMY TUCK, coronary artery bypass graft surgery, four vessels, Date of surgery 10/2008, umbilical hernia repair, double, Date of surgery 06/16/2009, ileostomy, Date of surgery 2008, tonsillectomy. total colectomy 2013. colostomy bag placed. PSYCHIATRIC HISTORY: Psychiatric history includes, anxiety, depression. SOCIAL HISTORY: Patient is a former tobacco user, smoked cigarettes, Patient quit smoking more than 10 years ago, Patient denies alcohol use, Patient denies drug use. FAMILY HISTORY: Family history is not significant. KNOWN ALLERGIES Bactrim DS Imuran: - Entered brand: Imuran Tab -- Entered brand: Imuran Tab -- Entered brand: Imuran Tab Phenergan Plain: - "restless legs" tetanus-diphtheria toxoids-Td: - ANAPHALYXIS CURRENT MEDICATIONS levothyroxine: TABLET : Strength - 25 mcg : ORAL Patient Dose: 25 mcg Oral once a day. (09:51 KMOR) atorvastatin: TABLET : Strength - 10 mg : ORAL Patient Dose: 10 mg Oral once a day. (09:51 KMOR) meTOPROLOL tartrate: TABLET : Strength - 25 mg : ORAL Patient Dose: 1/2 tab(s) Oral 2 times a day. (09:54 KMOR) ursodiol: CAPSULE : Strength - 300 mg : ORAL Patient Dose: 300 mg Oral 2 times a day. (09:55 KMOR) Protonix: TABLET, DELAYED RELEASE (ENTERIC COATED) : Strength - 40 mg : ORAL Patient Dose: 40 mg Oral 2 times a day. (09:55 KMOR) Pentasa: CAPSULE, EXTENDED RELEASE : Strength - 500 mg : ORAL Patient Dose: 1000 mg Oral 2 times a day. (09:55 KMOR) Lasix: TABLET : Strength - 40 mg : ORAL Patient Dose: 40 mg Oral once a day. (09:56 KMOR) Mirapex: TABLET : Strength - 0.5 mg : ORAL Patient Dose: 0.5 mg Oral once a day (at bedtime). (09:56 KMOR) Klor-Con: PACKET (EA) : Strength - 20 mEq : ORAL &a-1R&a+25V*p+0X*l2420L*c202B*c15G*c2P*p-0X&a-25V&a+1R Name: Honey Cheng : 1945 F70 MedRec: [id number] AcctNum: [id number] Prepared: Prachi Mar 12, 2016 10:53 by Interface Page 2 of 5 pMD [facility] EMERGENCY RECORD Patient Dose: 10 mEq Oral once a day. (09:57 KMOR) aspirin: TABLET : Strength - 81 mg : ORAL Patient Dose: 81 mg Oral once a day. (09:57 KMOR) Levemir: VIAL (ML) : Strength - 100 unit/mL : SUBCUTANEOUS Patient Dose: 50 units Subcutaneous once a day. (09:57 KMOR) CeleXA: TABLET : Strength - 20 mg : ORAL Patient Dose: 20 tab(s) Oral once a day (at bedtime). (09:57 KMOR) Feosol: TABLET : Strength - 325 mg (65 mg iron) : ORAL Patient Dose: 325 mg Oral See Notes.MWF. (09:58 KMOR) NovoLOG: VIAL (ML) : Strength - 100 unit/mL : SUBCUTANEOUS Patient Dose: 10 units Subcutaneous As Needed. (09:59 KMOR) VITAL SIGNS VITAL SIGNS: BP: 118/60, Pulse: 75, Resp: 18, Pain: 7, O2 sat: 96 on Room Air, Time: 03/12/2016 08:40. (08:40 KMOR) Temp: 98.0 (Oral), Time: 03/12/2016 08:41. (08:41 KMOR) BP: 112/52, Pulse: 68, Resp: 18, O2 sat: 99 on Room Air, Time: 03/12/2016 10:01. (10:01 KMOR) BP: 113/61, Pulse: 69, Resp: 18, O2 sat: 92 on Room Air, Time: 03/12/2016 09:45. (09:45 KMOR) Temp: 97.8 (Oral), Pain: 1, Time: 03/12/2016 10:33. (10:33 KMOR) PHYSICAL EXAM (08:58 [facility]) CONSTITUTIONAL: Vital signs reviewed, Patient afebrile, Pulse normal, Blood pressure normal, Respiratory rate normal, Patient appears non toxic, Patient appears pain free, Patient alert and oriented to person, place and time. HEAD: Head exam normal, Head exam included findings of head atraumatic, normocephalic. EYES: Eye exam normal, Eye exam included findings of eyelids normal to inspection, Pupils equally round and reactive to light, Extraocular muscles intact, no nystagmus. ENT: ENT exam normal, Ear exam normal, external ear normal, tympanic membranes normal, no bleeding, Pharynx exam normal, Uvula exam normal, Tonsil exam normal, Mouth exam normal, mucous membranes moist, teeth normal. NECK: Neck exam normal, Neck exam included findings of normal range of motion, Trachea midline, no meningeal signs, no cervical adenopathy, no tenderness. RESPIRATORY CHEST: Respiratory and chest exam normal, Respiratory exam included findings of no respiratory distress, Breath sounds clear. CARDIOVASCULAR: Cardiovascular assessment normal, Cardiovascular &a-1R&a+25V*p+0X*t2786K*c202B*c15G*c2P*p-0X&a-25V&a+1R Name: Honey Cheng : 1945 F70 MedRec: [id number] AcctNum: [id number] Prepared: Prachi Mar 12, 2016 10:53 by Interface Page 3 of 5 pMD [facility] EMERGENCY RECORD exam included findings of heart rate regular rate and rhythm, Heart sounds normal. ABDOMEN FEMALE: Abdominal exam included findings of abdomen tender, to the epigastric region, mild intensity, Bowel sounds normal. BACK: Back exam normal, Back exam included findings of normal inspection, range of motion normal, no tenderness. UPPER EXTREMITY: Upper extremity exam normal, Upper extremity exam included findings of inspection normal, Range of motion normal, Motor strength normal, Sensation intact, Radial pulse normal. LOWER EXTREMITY: Lower extremity exam normal, Lower extremity exam included findings of inspection normal, Range of motion normal, Motor strength normal, Sensation intact, Posterior tibial pulse normal, Pedal pulse normal. NEURO: Neuro exam normal, Neuro exam findings include patient oriented to person, place and time, Speech normal, Gait normal, Cranial nerves intact, no focal motor deficits, no focal sensory deficits. SKIN: Skin exam normal, Skin exam included findings of skin warm, dry, and normal in color, no rash. PSYCHIATRIC: Psychiatric exam normal, Normal affect. MEDICATION ADMINISTRATION SUMMARY Drug Name: *sodium chloride 0.9 % intravenous, Dose Ordered: 1 L, Route: IV Fluid Infusion, Status: Given, Time: 09:27 03/12/2016, *Additional information available in notes, Detailed record available in Medication Service section. DOCTOR NOTES (10:36 [facility] RE-EVALUATION: Routine re-evaluation, after administration of IV fluids, The patient's condition has improved. TEXT: Patient presented with abdominal pain and nausea. Physical exam showed mild upper abdominal tenderness but in spite of her history, my concern for obstruction is low. She is tolerating oral intake without difficulty and is non toxic in appearance. Her symptoms resolved after IV fluids. She is following her anemia with her PMD. No need for further workup or evaluation in the ED. Should return if pain worsens. PATIENT STATUS: Patient has improved since arrival to emergency department. PATIENT PLAN: The patient will be discharged, The patient will follow up with primary care physician. DATA REVIEWED: Lab data reviewed. PROBLEM LIST No recorded problems DIAGNOSIS (10:28 [facility]) FINAL: PRIMARY: Abdominal Pain. &a-1R&a+25V*p+0X*h0469G*c202B*c15G*c2P*p-0X&a-25V&a+1R Name: Honey Cheng : 1945 F70 MedRec: [id number] AcctNum: [id number] Prepared: Prachi Mar 12, 2016 10:53 by Interface Page 4 of 5 pMD [facility] EMERGENCY RECORD PRESCRIPTION No recorded prescriptions DISPOSITION PATIENT: Disposition Type: Discharge, Disposition: *Discharge Home. (10:27 JJA) Disposition: (none). (10:28 JJA) Disposition: *Discharge Home. (10:28 MAO) Patient left the department. (10:50 SERGIO) Saini: MAO=MD Lakisha, Olivier KMOR=CINTIA Kingsley, Mikala &a-1R&a+25V*p+0X*w3947R*c202B*c15G*c2P*p-0X&a-25V&a+1R Name: Honey Cheng : 1945 F70 MedRec: [id number] AcctNum: [id number] Prepared: Prachi Mar 12, 2016 10:53 by Interface Page 5 of 5 pMD MTDD
--- NOTE | 2016-03-12 10:54 | PICIS ---
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 (08:38 KMOR) PATIENT: NAME: Honey Cheng, AGE: 70, GENDER: female, : Prachi 1945, TIME OF GREET: Prachi Mar 12, 2016 08:34, PREFERRED LANGUAGE: Hungarian, ETHNICITY: Not or , ECODE BILLING MAP: [facility], SSN: [id number], Zip Code: [address], KG WEIGHT: 68.04, PHONE: , , , PERSON ID: [id number], PAYMENT: [employer] Medicare, PCP: MD Griselda Beto. (08:38 KMOR) COMPLAINT: NAUSEA. (08:38 KMOR) ADMISSION: URGENCY: 4 Non Urgent, ADMISSION SOURCE: Home, TRANSPORT: CAR, BED: ER -02. (08:38 KMOR) ASSESSMENT: Assessment: A&OX4. RR EVEN AND UNLABORED., Symptoms began 1 hour ago. (08:40 KMOR) PAIN: Patient complains of pain described as, cramping, on a scale 0-10 patient rates pain as 6, Location DIFFUSE. (08:40 KMOR) IMMUNIZATIONS: Flu vaccine up to date, Tetanus not up to date, Pneumococcal vaccine up to date. (08:40 KMOR) SIRS SCORING: Heart Rate 55-109 (0), Temp range 96.8-101.1 (0), respiratory rate 12-24 (0), Mental Status altered: no (0), Infection or Suspected Infection: No. (08:40 KMOR) TRIAGE SCREENING: Patient denies suicidal ideation, Patient denies presence of domestic violence. (08:40 KMOR) LMP: LMP: Hysterectomy. (08:40 KMOR) TREATMENTS IN PROGRESS: Medications Given, ZOFRAN 4MG ODT 0730. (08:40 KMOR) PROVIDERS: TRIAGE NURSE: Mikala Kingsley RN. (08:38 KMOR) PREVIOUS VISIT ALLERGIES: Bactrim DS, Imuran, Phenergan Plain, tetanus-diphtheria toxoids-Td. (08:38 KMOR) Bactrim DS, Imuran, Phenergan Plain, tetanus-diphtheria toxoids-Td. (08:40 KMOR) KNOWN ALLERGIES Bactrim DS Imuran: - Entered brand: Imuran Tab -- Entered brand: Imuran Tab -- Entered brand: Imuran Tab Phenergan Plain: - "restless legs" tetanus-diphtheria toxoids-Td: - ANAPHALYXIS CURRENT MEDICATIONS levothyroxine: TABLET : Strength - 25 mcg : ORAL Patient Dose: 25 mcg Oral once a day. (09:51 KMOR) atorvastatin: TABLET : Strength - 10 mg : ORAL Patient Dose: 10 mg Oral once a day. (09:51 KMOR) meTOPROLOL tartrate: TABLET : Strength - 25 mg : ORAL &a-1R&a+25V*p+0X*z1136N*c202B*c15G*c2P*p-0X&a-25V&a+1R Name: Honey Cheng : 1945 F70 MedRec: [id number] AcctNum: [id number] Prepared: Prachi Mar 12, 2016 10:59 by Interface Page 1 of 8 pMD [facility] EMERGENCY RECORD Patient Dose: 1/2 tab(s) Oral 2 times a day. (09:54 KMOR) ursodiol: CAPSULE : Strength - 300 mg : ORAL Patient Dose: 300 mg Oral 2 times a day. (09:55 KMOR) Protonix: TABLET, DELAYED RELEASE (ENTERIC COATED) : Strength - 40 mg : ORAL Patient Dose: 40 mg Oral 2 times a day. (09:55 KMOR) Pentasa: CAPSULE, EXTENDED RELEASE : Strength - 500 mg : ORAL Patient Dose: 1000 mg Oral 2 times a day. (09:55 KMOR) Lasix: TABLET : Strength - 40 mg : ORAL Patient Dose: 40 mg Oral once a day. (09:56 KMOR) Mirapex: TABLET : Strength - 0.5 mg : ORAL Patient Dose: 0.5 mg Oral once a day (at bedtime). (09:56 KMOR) Klor-Con: PACKET (EA) : Strength - 20 mEq : ORAL Patient Dose: 10 mEq Oral once a day. (09:57 KMOR) aspirin: TABLET : Strength - 81 mg : ORAL Patient Dose: 81 mg Oral once a day. (09:57 KMOR) Levemir: VIAL (ML) : Strength - 100 unit/mL : SUBCUTANEOUS Patient Dose: 50 units Subcutaneous once a day. (09:57 KMOR) CeleXA: TABLET : Strength - 20 mg : ORAL Patient Dose: 20 tab(s) Oral once a day (at bedtime). (09:57 KMOR) Feosol: TABLET : Strength - 325 mg (65 mg iron) : ORAL Patient Dose: 325 mg Oral See Notes.MWF. (09:58 KMOR) NovoLOG: VIAL (ML) : Strength - 100 unit/mL : SUBCUTANEOUS Patient Dose: 10 units Subcutaneous As Needed. (09:59 KMOR) VITAL SIGNS VITAL SIGNS: BP: 118/60, Pulse: 75, Resp: 18, Pain: 7, O2 sat: 96 on Room Air, Time: 03/12/2016 08:40. (08:40 KMOR) Temp: 98.0 (Oral), Time: 03/12/2016 08:41. (08:41 KMOR) BP: 112/52, Pulse: 68, Resp: 18, O2 sat: 99 on Room Air, Time: 03/12/2016 10:01. (10:01 KMOR) BP: 113/61, Pulse: 69, Resp: 18, O2 sat: 92 on Room Air, Time: 03/12/2016 09:45. (09:45 KMOR) Temp: 97.8 (Oral), Pain: 1, Time: 03/12/2016 10:33. (10:33 KMOR) NURSING ASSESSMENT: ABDOMEN (09:47 KMOR) CONSTITUTIONAL: Patient arrives ambulatory, Unsteady &a-1R&a+25V*p+0X*n3945F*c202B*c15G*c2P*p-0X&a-25V&a+1R Name: Honey Cheng : 1945 F70 MedRec: [id number] AcctNum: [id number] Prepared: Prachi Mar 12, 2016 10:59 by Interface Page 2 of 8 pMD [facility] EMERGENCY RECORD gait, with walker, History obtained from patient, Patient appears comfortable, Patient cooperative, Patient alert, Oriented to person, place and time, Skin warm, Skin dry, Skin normal in color, Mucous membranes pink, Mucous membranes moist, Patient is well-groomed, Patient complains of Nausea, Patient reports she was in [employer] and began to have cramping pain and nausea. 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 No vomiting or fever. PAIN: cramping pain, diffusely, on a scale 0-10 patient rates pain as 7. ABDOMEN: Abdomen assessment findings include abdomen symmetrical, Scars, to lower abdomen, Abdomen soft, tender, diffusely, Associated with nausea, no associated vomiting. LMP: Last menstrual period not applicable due to hysterectomy history. NOTES: Patient tolerated procedure well. NURSING ASSESSMENT: TUBES AND PORTS (09:49 KMOR) TUBES AND PORTS: Ileostomy present, to right lower quad, draining moderate amount of liquid stool, of semi-soft stool, No signs of infection at site. NURSING PROCEDURE: DISCHARGE NOTE (10:49 KMOR) DISCHARGE: Patient discharged to home, ambulating with walker, friend driving, accompanied by friend, Summary of Care printed/ provided, Transition record given to patient, Discharge instructions given to patient, Simple or moderate discharge teaching performed, by CINTIA Bach, Discharge instructions and follow up reviewed with patient. Pt ambulatory to discharge desk., Above person(s) verbalized understanding of discharge instructions and follow-up care. BELONGINGS: Belongings remain with patient, Valuables remain with patient. NURSING PROCEDURE: IV PATIENT IDENITIFIER: Patient actively involved in identification process, Patient's identity verified by patient stating name, Patient's identity verified by patient stating date. (09:20 KMOR) Patient actively involved in identification process, Patient's identity verified by patient stating name, Patient's identity verified by patient stating date. (10:30 KMOR) IV SITE 1: IV therapy indicated for hydration, IV therapy indicated for medication administration, IV established, to the right wrist, using a 20 gauge catheter, in four attempts, Saline lock established, Flushed with normal saline (mls): 3cc, Notes: 3 attempts by this nurse. Established by CINTIA Rutherford. (09:20 KMOR) FOLLOW-UP SITE 1: After procedure, 2x3 ensure dressing applied, &a-1R&a+25V*p+0X*r3816Z*c202B*c15G*c2P*p-0X&a-25V&a+1R Name: Honey Cheng : 1945 F70 MedRec: [id number] AcctNum: [id number] Prepared: Prachi Mar 12, 2016 10:59 by Interface Page 3 of 8 pMD [facility] EMERGENCY RECORD After procedure, no drainage at IV site, After procedure, no swelling at IV site, After procedure, no redness at IV site. (09:20 KMOR) IV discontinued, due to patient being discharged, catheter intact. (10:30 KMOR) NOTES: Patient tolerated procedure well. (09:20 KMOR) Patient tolerated procedure well. (10:30 KMOR) NURSING PROCEDURE: NURSE NOTES NURSES NOTES: Notes: Patient resting back in bed talking with friend, Patient reports some pain at IV site, checked site no redness, no swelling, no signs of infiltration, will continue to monitor site. (10:15 KMOR) Notes: Patient assisted to get dressed, pt ambulated to bathroom with walker. NAD. (10:42 KMOR) ORDER DETAILS Order Name: CBC with Differential, Status: Active, Time: 08:52 03/12/2016, User: MAO, - Ordered for: MD Banuelos Jason, - Entered by: MD Banuelos Jason - Sun Mar 12, 2016 08:52, - Quantity: 1, Order Name: Comprehensive Metabolic Panel, Status: Active, Time: 08:52 03/12/2016, User: MAO, - Ordered for: MD Banuelos Jason, - Entered by: MD Banuelos Jason - Prachi Mar 12, 2016 08:52, - Quantity: 1, Order Name: Lactic Acid with repeat, Status: Active, Time: 08:52 03/12/2016, User: MAO, - Ordered for: MD Banuelos Jason, - Entered by: MD Banuelos Jason - Sun Mar 12, 2016 08:52, - Quantity: 1, Order Name: SALINE LOCK, Status: Done, Time: 09:25 03/12/2016, User: SERGIO, - Ordered for: MD Banuelos Jason, - Entered by: MD Banuelos Jason - Sun Mar 12, 2016 08:52, - Quantity: 1. MEDICATION ADMINISTRATION SUMMARY Drug Name: *sodium chloride 0.9 % intravenous, Dose Ordered: 1 L, Route: IV Fluid Infusion, Status: Given, Time: 09:27 03/12/2016, *Additional information available in notes, Detailed record available in Medication Service section. MEDICATION SERVICE sodium chloride 0.9 % intravenous: Order: sodium chloride 0.9 % intravenous (0.9 % sodium chloride) - Dose: 1 L : IV Fluid Infusion Notes: (Bolus) &a-1R&a+25V*p+0X*x6740P*c202B*c15G*c2P*p-0X&a-25V&a+1R Name: Honey Cheng : 1945 F70 MedRec: [id number] AcctNum: [id number] Prepared: SunMar 12, 2016 10:59 by Interface Page 4 of 8 pMD [facility] EMERGENCY RECORD Ordered by: Olivier Banuelos MD Entered by: MD Prachi Armstrong Mar 12, 2016 08:53 , Acknowledged by: CINTIA Carmona Mar 12, 2016 09:26 Documented as given by: CINTIA Carmona Mar 12, 2016 09:27 Patient, Medication, Dose, Route and Time verified prior to administration. Amount given: 1000ml, IV SITE #1 IV fluids established for hydration, IV SITE #1 into right hand, IV SITE #1 1st bag hung, amount 1 Liter hung, via primary tubing, IV SITE #1 on IV pump, Connections checked prior to administration, Line traced prior to administration, Catheter placement confirmed via flush prior to administration, IV site without signs or symptoms of infiltration during medication administration, No swelling during administration, No drainage during administration, IV flushed after administration, Correct patient, time, route, dose and medication confirmed prior to administration, Patient advised of actions and side-effects prior to administration, Allergies confirmed and medications reviewed prior to administration, Patient in position of comfort, Side rails up, Cart in lowest position. : Follow Up : Response assessment performed, No signs or symptoms of allergic reaction noted, _IV SITE #1:_, IV fluid infusion discontinued, on [place] Mar 12, 2016 10:25, Total fluid hydration time IV site 1 1 hour, ., Total amount infused: 1000ml, IV Discontinued with catheter intact, IV Line flushed after administration. (10:25 KMNE) HPI ABDOMINAL PAIN (08:53 [facility]) CHIEF COMPLAINTS: Patient presents for evaluation of abdominal pain. HISTORIAN: History provided by patient, 70F presents to the ED with complaints of nausea and abdominal pain that began this morning. She is well known to the department here. has continuing GI issues secondary to multiple surgeries. Denies vomiting, denies decreased ostomy output. Describes cramping sharp upper abdominal pain. Patient feels she is dehydrated. LOCATION FEMALE: Symptoms are localized, most severe in the epigastrium. QUALITY: Pain is dull in nature, described as cramping. TIME COURSE: Sudden onset of symptoms, Symptoms are intermittent, Symptoms are improving. ASSOCIATED WITH FEMALE: No associated constipation, Associated with nausea, No associated vomiting. EXACERBATED BY: Patient's condition exacerbated by nothing. ROS (08:58 [facility]) CONSTITUTIONAL: Negative constitutional review of systems, Historian denies chills, denies fever. EYES: Negative eye review of systems, Historian denies eye pain, denies vision changes. ENT: Negative ears, nose, throat review of systems, Historian &a-1R&a+25V*p+0X*n3291I*c202B*c15G*c2P*p-0X&a-25V&a+1R Name: Honey Cheng : 1945 F70 MedRec: [id number] AcctNum: [id number] Prepared: Prachi Mar 12, 2016 10:59 by Interface Page 5 of 8 pMD [facility] EMERGENCY RECORD denies rhinorrhea, denies sore throat, denies voice changes. CARDIOVASCULAR: Negative cardiovascular review of systems, Historian denies chest pain, denies palpitations. RESPIRATORY: Negative respiratory review of systems, Historian denies cough, denies shortness of breath. GI: Historian reports abdominal pain, reports nausea. GENITOURINARY FEMALE: Negative genitourinary review of systems, Historian denies dysuria, denies frequency. MUSCULOSKELETAL: Negative musculoskeletal review of systems, Historian denies back pain, denies fall, denies injury. SKIN: Negative skin review of systems, Historian denies rash, denies skin changes. NEUROLOGIC: Negative neurologic review of systems, Historian denies headache, denies mental status changes, denies paralysis, denies paresthesias, denies sensory changes. HEMO/LYMPHATIC: Normal hematologic/lymphatic system review, Historian denies abnormal blood clotting. ALLERGIC/IMMUNOLOGIC: Normal allergy/immunologic system review, Historian denies frequent infections. PAST MEDICAL HISTORY (08:40 KMOR) MEDICAL HISTORY: Past medical history includes endocrine disease, hypothyroidism, Past medical history includes gastrointestinal disease, crohns, DM II, anemia, GI bleed. ischemic cerebral vascular accident x 2, TIA x1 Notes: myocardial infarction, diabetes, Type II, on insulin, coronary artery disease, h/o MRSA infection,hx of acute renal failure. Fx of RArm in 3 places, FX COCYX. FEMALE SURGICAL HISTORY: CBG, abd wall abscess. 2003 COLON SURGERY; TUMMY TUCK, coronary artery bypass graft surgery, four vessels, Date of surgery 10/2008, umbilical hernia repair, double, Date of surgery 06/16/2009, ileostomy, Date of surgery 2008, tonsillectomy. total colectomy 2013. colostomy bag placed. PSYCHIATRIC HISTORY: Psychiatric history includes, anxiety, depression. SOCIAL HISTORY: Patient is a former tobacco user, smoked cigarettes, Patient quit smoking more than 10 years ago, Patient denies alcohol use, Patient denies drug use. FAMILY HISTORY: Family history is not significant. PHYSICAL EXAM (08:58 [facility]) CONSTITUTIONAL: Vital signs reviewed, Patient afebrile, Pulse normal, Blood pressure normal, Respiratory rate normal, Patient appears non toxic, Patient appears pain free, Patient alert and oriented to person, place and time. HEAD: Head exam normal, Head exam included findings of head atraumatic, normocephalic. EYES: Eye exam normal, Eye exam included findings of eyelids normal to inspection, Pupils equally round and reactive to light, &a-1R&a+25V*p+0X*x5318L*c202B*c15G*c2P*p-0X&a-25V&a+1R Name: Honey Cheng : 1945 F70 MedRec: [id number] AcctNum: [id number] Prepared: Prachi Mar 12, 2016 10:59 by Interface Page 6 of 8 pMD [facility] EMERGENCY RECORD Extraocular muscles intact, no nystagmus. ENT: ENT exam normal, Ear exam normal, external ear normal, tympanic membranes normal, no bleeding, Pharynx exam normal, Uvula exam normal, Tonsil exam normal, Mouth exam normal, mucous membranes moist, teeth normal. NECK: Neck exam normal, Neck exam included findings of normal range of motion, Trachea midline, no meningeal signs, no cervical adenopathy, no tenderness. RESPIRATORY CHEST: Respiratory and chest exam normal, Respiratory exam included findings of no respiratory distress, Breath sounds clear. CARDIOVASCULAR: Cardiovascular assessment normal, Cardiovascular exam included findings of heart rate regular rate and rhythm, Heart sounds normal. ABDOMEN FEMALE: Abdominal exam included findings of abdomen tender, to the epigastric region, mild intensity, Bowel sounds normal. BACK: Back exam normal, Back exam included findings of normal inspection, range of motion normal, no tenderness. UPPER EXTREMITY: Upper extremity exam normal, Upper extremity exam included findings of inspection normal, Range of motion normal, Motor strength normal, Sensation intact, Radial pulse normal. LOWER EXTREMITY: Lower extremity exam normal, Lower extremity exam included findings of inspection normal, Range of motion normal, Motor strength normal, Sensation intact, Posterior tibial pulse normal, Pedal pulse normal. NEURO: Neuro exam normal, Neuro exam findings include patient oriented to person, place and time, Speech normal, Gait normal, Cranial nerves intact, no focal motor deficits, no focal sensory deficits. SKIN: Skin exam normal, Skin exam included findings of skin warm, dry, and normal in color, no rash. PSYCHIATRIC: Psychiatric exam normal, Normal affect. EVENTS TRANSFER: Triage to Emergency Emergency Room -02. ([place] Mar 12, 2016 08:38 KMOR) Removed from Emergency Emergency Room -02. (10:50 KMOR) DOCTOR NOTES (10:36 [facility]) RE-EVALUATION: Routine re-evaluation, after administration of IV fluids, The patient's condition has improved. TEXT: Patient presented with abdominal pain and nausea. Physical exam showed mild upper abdominal tenderness but in spite of her history, my concern for obstruction is low. She is tolerating oral intake without difficulty and is non toxic in appearance. Her symptoms resolved after IV fluids. She is following her anemia with her PMD. No need for further workup or evaluation in the ED. Should return if pain worsens. PATIENT STATUS: Patient has improved since arrival to emergency &a-1R&a+25V*p+0X*z9525J*c202B*c15G*c2P*p-0X&a-25V&a+1R Name: Honey Cheng : 1945 F70 MedRec: [id number] AcctNum: [id number] Prepared: Prachi Mar 12, 2016 10:59 by Interface Page 7 of 8 pMD [facility] EMERGENCY RECORD department. PATIENT PLAN: The patient will be discharged, The patient will follow up with primary care physician. DATA REVIEWED: Lab data reviewed. PROBLEM LIST No recorded problems DIAGNOSIS (10:28 JJA) FINAL: PRIMARY: Abdominal Pain. DISPOSITION PATIENT: Disposition Type: Discharge, Disposition: *Discharge Home. (10:27 JJAC) Disposition: (none). (10:28 JJAC) Disposition: *Discharge Home. (10:28 JJAC) Patient left the department. (10:50 KMOR) INSTRUCTION (10:28 JJA) DISCHARGE: ANEMIA, TYPE NOT SPECIFIED (ADULT). FOLLOWUP: MD Griselda, [facility], [address] [place] [address] [address], [facility] [address], . SPECIAL: Follow up with Dr. Villalobos. PRESCRIPTION No recorded prescriptions IMAGING (10:53 KMOR) *DISCHARGE INSTRUCTIONS RECEIPT: Image captured from scanner. MEDICAITON LIST: Image captured from scanner. *SUPPLY CHARGE SHEET: Image captured from scanner. ADMIN DIGITAL SIGNATURE: MD Banuelos Jason. (10:37 JJA) CINTIA Kingsley Krista. (10:53 KMOR) Saini: MAO=MD Banuelos Jason KMOR=CINTIA Kingsley Krista &a-1R&a+25V*p+0X*c9603Y*c202B*c15G*c2P*p-0X&a-25V&a+1R Name: Honey Cheng : 1945 F70 MedRec: [id number] AcctNum: [id number] Prepared: Prachi Mar 12, 2016 10:59 by Interface Page 8 of 8 pMD MTDD
== END 2016-03-12 10:49 | disposition home or self-care (01) ==
LOC: BURERS 08:33
DX: R10.9 Unspecified abdominal pain (principal); E11.9 Type 2 diabetes mellitus without complications; K50.90 Crohn's disease, unspecified, without complications; D64.9 Anemia, unspecified; F41.9 Anxiety disorder, unspecified; F32.9 Major depressive disorder, single episode, unspecified; Z87.891 Personal history of nicotine dependence
CPT/HCPCS: 80053; 83605; 85025; 96360

== ENCOUNTER 2016-06-22 18:06 | Emergency (ER) | payer MEDICARE, MEDICAID ==
[2016-06-22 19:45] LABS: Hemoglobin 11.3 g/dL (12.0-16.0); Mean Corpuscular HGB CONC 31.2 g/dL (32.0-36.0); Mean Corpuscular Hemoglobin 28.6 pg (27.0-31.0); Mean Corpuscular Volume 91.9 fl (81.0-99.0); Mean Platelet Volume 13.1 fL (7.4-10.4); Platelet Count 138 thou/uL (130-400); RBC Distribution Width 13.7 % (11.5-14.5); Red Blood Cell (RBC) Count 3.94 mill/uL (4.20-5.40); White Blood Cell (WBC) Count 6.1 thou/uL (4.8-10.8)
[2016-06-22 19:54] LABS: Eosinophils 4 % (0-10); Lymphocytes 16 % (21-51); MDiff Complete? YES; Monocytes 7 % (0-10); Neutrophil 73 % (42-75)
--- NOTE | 2016-06-22 21:56 | RAD ---
ACUTE ABDOMEN SERIES 06/22/16 Comparison is made with the 02/21/16 study. The gas pattern is normal with no sign of obstruction. There are no dilated loops of bowel. The sple en seems slightly generous in size, perhaps a little larger than it may have been on the February study, though it is difficult to be certain on this plain radiograph. Vascular calcifications are evident. Some mild scoliosis convexed left is seen. The chest film in the series shows a normal sized heart for age. Median sternotomy sutures are seen from prior surgery. The lungs are clear. IMPRESSION: 1. No acute abdominal findings. 2. Questionable mild splenic enlargement. POS: HOME
== END 2016-06-22 21:11 | disposition short-term general hospital (02) ==
LOC: BURERS 18:06
DX: K92.2 Gastrointestinal hemorrhage, unspecified (principal); I25.10 Atherosclerotic heart disease of native coronary artery without angina pectoris; E11.9 Type 2 diabetes mellitus without complications; E03.9 Hypothyroidism, unspecified; D50.9 Iron deficiency anemia, unspecified; F32.9 Major depressive disorder, single episode, unspecified; F41.9 Anxiety disorder, unspecified; Z87.891 Personal history of nicotine dependence; Z79.899 Other long term (current) drug therapy; Z79.82 Long term (current) use of aspirin; Z79.4 Long term (current) use of insulin
CPT/HCPCS: 74022; 85025

== ENCOUNTER 2016-08-16 12:40 | Emergency (ER) | payer MEDICARE, MEDICAID ==
[2016-08-16] MEDS ORDERED: traMADol HCl 50 MG TAB ONE ×2 (13:50→14:08)
--- NOTE | 2016-08-16 21:15 | RAD ---
CHEST TWO VIEWS 08/16/16 Comparison is made with a 06/22/16 PA film. Mild cardiomegaly is about the same as before. Median sternotomy sutures are seen from prior surgery . The aorta is partially calcified. There are no congestive changes or large pleural effusions. The depth of inspiration is rather shallow which crowds some of the lower lobe lung markings. This sligh t basilar streaking is probably more likely to be atelectasis than not. An old rib fracture is seen involving the right 8th rib. See rib films to follow. IMPRESSION: 1. Mild cardiomegaly. 2. Old right 8th rib fracture. 3. Slight basilar streaking which is most likely just atelectasis. Note: The vertebrae are not easily seen in this patient due to osteoporosis and habitus. There may b e some slight compression of a mid thoracic vertebra but other views would be needed to be certain, and this may not even be an acute findings. POS: HOME
--- NOTE | 2016-08-16 21:18 | RAD ---
RIGHT RIBS 08/16/16 Multiple views were obtained. Comparison was made with older chest films. There is a fracture of the right 8th rib that is longstanding. I cannot confirm any acute fractures. There is a little irregul arity at the end of the 11th rib on one view, but not enough to confidently diagnose another fractur e. There is no pneumothorax, pleural effusion, or acute infiltrate in the right lung. One of the vie ws provided does suggest there is probably a mild compression of one of the mid thoracic vertebra. IMPRESSION: 1. Old right 8th rib fracture. 2. No definite rib fracture seen otherwise. 3. Probable mild compression of a mid thoracic vertebra of uncertain age. POS: HOME
== END 2016-08-16 14:10 | disposition home or self-care (01) ==
LOC: BURERS 12:40
DX: S20.211A Contusion of right front wall of thorax, initial encounter (principal); I25.10 Atherosclerotic heart disease of native coronary artery without angina pectoris; E11.9 Type 2 diabetes mellitus without complications; E03.9 Hypothyroidism, unspecified; D50.9 Iron deficiency anemia, unspecified; F41.9 Anxiety disorder, unspecified; F32.9 Major depressive disorder, single episode, unspecified; Z87.891 Personal history of nicotine dependence; Z79.899 Other long term (current) drug therapy; Z79.82 Long term (current) use of aspirin; W22.8XXA Striking against or struck by other objects, initial encounter
CPT/HCPCS: 71020

== ENCOUNTER 2016-11-18 12:07 | Emergency (ER) | payer MEDICARE, OTHER ==
[2016-11-18] MEDS ORDERED: Nitroglycerin 0.4 MG TAB (25 Tab Bottle) ONE (12:30)
[2016-11-18 12:34] LABS: #Basophils 0.1 thou/uL (0.0-0.2); #Eosinphils 0.2 thou/uL (0.0-0.7); #Lymphocytes 0.7 thou/uL (1.20-3.40); #Monocytes 0.5 thou/uL (0.11-0.59); #Neutrophils 7.4 thou/uL (1.40-6.50); %Basophils 0.9 % (0.0-1.0); %Lymphocytes 8.2 % (21.0-51.0); %Monocytes 5.1 % (0.0-10.0); %Neutrophils 83.8 % (42.0-75.0); Hemoglobin 12.8 g/dL (12.0-16.0); Mean Corpuscular HGB CONC 32.1 g/dL (32.0-36.0); Mean Corpuscular Hemoglobin 30.2 pg (27.0-31.0); Mean Corpuscular Volume 93.9 fl (81.0-99.0); Mean Platelet Volume 8.6 fL (7.4-10.4); PLT Morphology Comment HISTORY OF LOW PLATELET COUNTS; Platelet Count 105 thou/uL (130-400); RBC Distribution Width 13.3 % (11.5-14.5); Red Blood Cell (RBC) Count 4.25 mill/uL (4.20-5.40); White Blood Cell (WBC) Count 8.9 thou/uL (4.8-10.8)
[2016-11-18 12:46] LABS: MDiff Complete? YES
[2016-11-18 12:51] LABS: ALT (SGPT) 32 U/L (8-55); AST (SGOT) 35 U/L (5-34); Albumin 3.6 g/dL (3.4-4.8); Alkaline Phosphatase 106 U/L (40-150); Anion Gap 16 mmol/L (10-20); BUN (Urea Nitrogen) 42 mg/dL (9.8-20.1); Bilirubin, Total 0.5 mg/dL (0.2-1.2); Calc. Creatinine Clearance 0 mL/min (70-130); Calcium 8.9 mg/dL (7.8-10.44); Carbon Dioxide 19 mmol/L (23-31); Chloride 104 mmol/L (98-107); Estimated GFR-MDRD 23; Globulin 5.2 g/dL (2.4-3.5); Glucose 280 mg/dL (80-115); Lipase 72 U/L (8-78); Protein, Total 8.8 g/dL (6.0-8.3); Sodium 135 mmol/L (136-145)
[2016-11-18 12:52] LABS: CKMB 3.4 ng/mL (0-6.6)
--- NOTE | 2016-11-18 15:32 | RAD ---
PORTABLE CHEST: DATE: 11/18/16. FINDINGS: An AP portable film at 1223 is compared with a 08/16/16 study. The heart size is unchanged. There is no vascular congestion or edema. The lungs are clear. IMPRESSION: No acute thoracic finding. POS: HOME
== END 2016-11-18 13:57 | disposition home or self-care (01) ==
LOC: BURERS 12:07
DX: I25.110 Atherosclerotic heart disease of native coronary artery with unstable angina pectoris (principal); R60.0 Localized edema; I25.2 Old myocardial infarction; E11.9 Type 2 diabetes mellitus without complications; F41.9 Anxiety disorder, unspecified; E03.9 Hypothyroidism, unspecified; K50.90 Crohn's disease, unspecified, without complications; Z86.73 Personal history of transient ischemic attack (TIA), and cerebral infarction without residual deficits; Z87.891 Personal history of nicotine dependence; Z79.4 Long term (current) use of insulin
CPT/HCPCS: 71010; 80053; 82553; 83690; 83880; 84484; 85025; 94760; 96360

== ENCOUNTER 2017-02-12 12:33 | Emergency (ER) | payer MEDICARE, MEDICAID | END 2017-02-12 13:32 | disposition home or self-care (01) | LOC: BURERS 12:33 | DX: L30.9 Dermatitis, unspecified (principal); I50.9 Heart failure, unspecified; I25.10 Atherosclerotic heart disease of native coronary artery without angina pectoris; I25.2 Old myocardial infarction; E11.9 Type 2 diabetes mellitus without complications; Z79.4 Long term (current) use of insulin; E03.9 Hypothyroidism, unspecified; K50.10 Crohn's disease of large intestine without complications; Z86.73 Personal history of transient ischemic attack (TIA), and cerebral infarction without residual deficits; M32.9 Systemic lupus erythematosus, unspecified; F41.9 Anxiety disorder, unspecified; F32.9 Major depressive disorder, single episode, unspecified; Z87.891 Personal history of nicotine dependence | CPT/HCPCS: 99282 ==

== ENCOUNTER 2017-07-02 16:58 | Emergency (ER) | payer MEDICARE, MEDICAID ==
[2017-07-02 17:47] LABS: Clarity Clear (Clear)
[2017-07-02 17:48] LABS: Bilirubin Negative (Negative); Blood, Urine Negative (Negative); Glucose, Urine (Dipstick) 250 mg/dL (Negative); Leukocyte Negative (Negative); Nitrite Negative (Negative); Protein, Urine (Dipstick) Negative (Neg-Trace); Specific Gravity, Urine 1.008 (1.002-1.036); Urobilinogen 0.2 mg/dL (0.2-1.0)
[2017-07-02 18:13] LABS: #Basophils 0.1 thou/uL (0.0-0.2); #Eosinphils 0.1 thou/uL (0.0-0.7); #Lymphocytes 0.5 thou/uL (1.20-3.40); #Monocytes 0.3 thou/uL (0.11-0.59); #Neutrophils 2.8 thou/uL (1.40-6.50); %Basophils 1.8 % (0.0-1.0); %Eosinophils 2.7 % (0.0-10.0); %Lymphocytes 13.9 % (21.0-51.0); %Neutrophils 72.5 % (42.0-75.0); Hemoglobin 10.5 g/dL (12.0-16.0); Mean Corpuscular HGB CONC 32.3 g/dL (32.0-36.0); Mean Corpuscular Hemoglobin 28.9 pg (27.0-31.0); Mean Corpuscular Volume 89.6 fl (81.0-99.0); Mean Platelet Volume 7.8 fL (7.4-10.4); Platelet Count 122 thou/uL (130-400); RBC Distribution Width 13.8 % (11.5-14.5); Red Blood Cell (RBC) Count 3.62 mill/uL (4.20-5.40); White Blood Cell (WBC) Count 3.8 thou/uL (4.8-10.8)
[2017-07-02 18:26] LABS: ALT (SGPT) 13 U/L (8-55); AST (SGOT) 28 U/L (5-34); Albumin 3.3 g/dL (3.4-4.8); Alkaline Phosphatase 104 U/L (40-150); Anion Gap 16 mmol/L (10-20); BUN (Urea Nitrogen) 19 mg/dL (9.8-20.1); Bilirubin, Total 0.4 mg/dL (0.2-1.2); CK (CPK) 25 U/L (29-168); Calc. Creatinine Clearance 0 mL/min (70-130); Carbon Dioxide 27 mmol/L (23-31); Chloride 102 mmol/L (98-107); Estimated GFR-MDRD 39; Globulin 4.5 g/dL (2.4-3.5); Glucose 78 mg/dL (80-115); Potassium 3.7 mmol/L (3.5-5.1); Protein, Total 7.8 g/dL (6.0-8.3); Sodium 141 mmol/L (136-145)
[2017-07-02 18:27] LABS: CKMB 0.7 ng/mL (0-6.6)
[2017-07-02] MEDS ORDERED: cefTRIAXone\\ROCEPHIN 2 GM VIAL ONE ×2 (18:32→18:33)
[2017-07-02] MEDS ORDERED: Sodium Chloride 0.9% 100 ML ONE (18:33)
[2017-07-02] MEDS ORDERED: Magnesium Sulfate 2 GM/100 ML BAG ONE (18:37)
[2017-07-02] MEDS ORDERED: Albuterol Sulfate 1.25 MG/3 ML NEB ONE (18:43)
[2017-07-02] MEDS ORDERED: Furosemide 40 MG/4 ML VIAL ONE (18:49)
--- NOTE | 2017-07-02 20:54 | RAD ---
PORTABLE CHEST: Date: 07/02/17 Comparison made with the 06/27/17 study. This portable film at 1733 hours shows the heart to be borde rline in size, but no different. The lung markings and vessels are a little more prominent today than before. I cannot exclude some early congestive change. A little bit of peribronchial cuffing may be present around some of the bronchi. The depth of inspiration is shallow, which could account for some of the basilar haziness on the right. IMPRESSION: Equivocal prominence of the vasculature. Early congestive change is not ruled out. POS: HOME
== END 2017-07-02 21:15 | disposition home or self-care (01) ==
LOC: BURERS 16:58
DX: J44.1 Chronic obstructive pulmonary disease with (acute) exacerbation (principal); D64.9 Anemia, unspecified; I50.9 Heart failure, unspecified; I25.10 Atherosclerotic heart disease of native coronary artery without angina pectoris; I25.2 Old myocardial infarction; E11.9 Type 2 diabetes mellitus without complications; Z79.4 Long term (current) use of insulin; E03.9 Hypothyroidism, unspecified; D50.0 Iron deficiency anemia secondary to blood loss (chronic); Z86.73 Personal history of transient ischemic attack (TIA), and cerebral infarction without residual deficits; Z87.891 Personal history of nicotine dependence; F41.9 Anxiety disorder, unspecified; F32.9 Major depressive disorder, single episode, unspecified; Z79.899 Other long term (current) drug therapy; Z79.82 Long term (current) use of aspirin
CPT/HCPCS: 71045; 80053; 81003; 82550; 82553; 83605; 83880; 84484; 85025; 93005; 94640; 94760; 96365; 96367; 96375; J0696; J1940; J3475; J7050; J7620

== ENCOUNTER 2017-09-19 18:49 | Emergency (ER) | payer MEDICARE, OTHER ==
[2017-09-19] MEDS ORDERED: Naloxone HCl 0.4 mg/ml Vial ONE (19:08)
[2017-09-19 20:18] LABS: ALT (SGPT) 15 U/L (8-55); AST (SGOT) 21 U/L (5-34); Albumin 3.7 g/dL (3.4-4.8); Alkaline Phosphatase 100 U/L (40-150); Anion Gap 15 mmol/L (10-20); BUN (Urea Nitrogen) 27 mg/dL (9.8-20.1); Bilirubin, Total 0.5 mg/dL (0.2-1.2); Calc. Creatinine Clearance 0 mL/min (70-130); Calcium 9.2 mg/dL (7.8-10.44); Carbon Dioxide 23 mmol/L (23-31); Chloride 104 mmol/L (98-107); Estimated GFR-MDRD 36; Globulin 4.5 g/dL (2.4-3.5); Glucose 262 mg/dL (83-110); Lipase 37 U/L (8-78); Protein, Total 8.2 g/dL (6.0-8.3); Sodium 137 mmol/L (136-145)
[2017-09-19 20:21] LABS: #Basophils 0.1 thou/uL (0.0-0.2); #Eosinphils 0.1 thou/uL (0.0-0.7); #Lymphocytes 0.6 thou/uL (1.20-3.40); #Monocytes 0.3 thou/uL (0.11-0.59); #Neutrophils 3.1 thou/uL (1.40-6.50); %Basophils 2.1 % (0.0-1.0); %Eosinophils 2.7 % (0.0-10.0); %Lymphocytes 14.2 % (21.0-51.0); %Monocytes 7.6 % (0.0-10.0); %Neutrophils 73.4 % (42.0-75.0); Hemoglobin 13.2 g/dL (12.0-16.0); Mean Corpuscular Hemoglobin 28.7 pg (27.0-31.0); Mean Corpuscular Volume 81.9 fL (78.0-98.0); Mean Platelet Volume 7.8 fL (7.4-10.4); PLT Morphology Comment Appears Decreased; Platelet Count 83 thou/uL (130-400); RBC Distribution Width 13.8 % (11.5-14.5); RBC Morphology Normal; White Blood Cell (WBC) Count 4.3 thou/uL (4.8-10.8)
[2017-09-19 20:28] LABS: Bilirubin Negative (Negative); Blood, Urine Negative (Negative); Clarity Slightly Cloudy (Clear); Glucose, Urine (Dipstick) 250 mg/dL (Negative); Leukocyte Small (Negative); Nitrite Negative (Negative); Protein, Urine (Dipstick) Trace mg/dL (Neg-Trace); Specific Gravity, Urine 1.015 (1.005-1.030); Urobilinogen 0.2 mg/dL (0.2-1.0); pH, Urine 5.5 (5.0-9.0)
[2017-09-19 20:33] LABS: Bacteria/HPF 1+ HPF (None Seen); RBC/HPF 0-3 HPF (0-3); Squamous Epithelial None Seen HPF (0-3)
[2017-09-19] MEDS ORDERED: Cephalexin 500 MG CAP ONE (20:40)
--- NOTE | 2017-09-19 20:48 | RAD ---
PORTABLE CHEST 09/19/17 AP portable film at 1855 is compared with a 06/27/17 study from [facility]. The heart size is stable. The vessels seem no more prominent than they were previously. There is no p ulmonary edema or large pleural effusion. There is some slight haziness in the left base, but the pat ient is turned slightly to the side, so it is unclear if this is real or artifact. A followup chest f ilm to re-examine this area depending on symptoms, could be useful. IMPRESSION: No definite acute findings. Equivocal left basilar haziness versus artifact from rotation. POS: HOME
== END 2017-09-19 20:52 | disposition home or self-care (01) ==
LOC: BURERS 18:49
DX: T40.2X1A Poisoning by other opioids, accidental (unintentional), initial encounter (principal); N39.0 Urinary tract infection, site not specified; E11.9 Type 2 diabetes mellitus without complications; E03.9 Hypothyroidism, unspecified; K58.9 Irritable bowel syndrome, unspecified; D50.9 Iron deficiency anemia, unspecified; I25.2 Old myocardial infarction; Z86.73 Personal history of transient ischemic attack (TIA), and cerebral infarction without residual deficits; Z87.891 Personal history of nicotine dependence; Z79.4 Long term (current) use of insulin
CPT/HCPCS: 36415; 71045; 80053; 81003; 81015; 83605; 83690; 85025; 93005; 96361; 96374; J2310

== ENCOUNTER 2017-12-10 05:38 | Emergency (ER) | payer MEDICARE, OTHER ==
[2017-12-10 06:27] LABS: #Eosinphils 0.1 thou/uL (0.0-0.7); #Lymphocytes 0.4 thou/uL (1.20-3.40); #Monocytes 0.3 thou/uL (0.11-0.59); #Neutrophils 4.8 thou/uL (1.40-6.50); %Basophils 0.4 % (0.0-1.0); %Eosinophils 1.1 % (0.0-10.0); %Lymphocytes 7.2 % (21.0-51.0); %Neutrophils 85.4 % (42.0-75.0); Hemoglobin 11.2 g/dL (12.0-16.0); Mean Corpuscular HGB CONC 31.8 g/dL (32.0-36.0); Mean Corpuscular Hemoglobin 29.2 pg (27.0-31.0); Mean Platelet Volume 10.3 fL (7.4-10.4); Platelet Count 104 thou/uL (130-400); Red Blood Cell (RBC) Count 3.81 mill/uL (4.20-5.40); White Blood Cell (WBC) Count 5.6 thou/uL (4.8-10.8)
[2017-12-10 06:34] LABS: ALT (SGPT) 10 U/L (8-55); AST (SGOT) 15 U/L (5-34); Albumin 3.1 g/dL (3.4-4.8); Alkaline Phosphatase 111 U/L (40-150); Anion Gap 12 mmol/L (10-20); BUN (Urea Nitrogen) 12 mg/dL (9.8-20.1); Bilirubin, Total 0.5 mg/dL (0.2-1.2); Calc. Creatinine Clearance 0 mL/min (70-130); Calcium 8.5 mg/dL (7.8-10.44); Carbon Dioxide 32 mmol/L (23-31); Chloride 101 mmol/L (98-107); Estimated GFR-MDRD 34; Globulin 4.2 g/dL (2.4-3.5); Glucose 214 mg/dL (83-110); Lipase 14 U/L (8-78); Potassium 4.1 mmol/L (3.5-5.1); Protein, Total 7.3 g/dL (6.0-8.3); Sodium 141 mmol/L (136-145)
[2017-12-10] MEDS ORDERED: HYDROcodone/Acetaminophen 10/325 mg Tablet ONE (06:42)
[2017-12-10 06:44] LABS: Bilirubin Negative (Negative); Blood, Urine Trace (Negative); Clarity Slightly Cloudy (Clear); Glucose, Urine (Dipstick) Negative (Negative); Leukocyte Trace (Negative); Nitrite Negative (Negative); Protein, Urine (Dipstick) 30 mg/dL (Neg-Trace); Specific Gravity, Urine 1.023 (1.005-1.030); Urobilinogen 0.2 mg/dL (0.2-1.0); pH, Urine 5.5 (5.0-9.0)
[2017-12-10 06:46] LABS: RBC/HPF 0-3 HPF (0-3)
[2017-12-10 06:47] LABS: Bacteria/HPF 1+ HPF (None Seen); Renal Epithelial 0-3 HPF (0-3); Squamous Epithelial 0-3 HPF (0-3)
[2017-12-10] MEDS ORDERED: fentaNYL 50 mcg/hour Patch TD SCH (07:00)
--- NOTE | 2017-12-10 18:29 | RAD ---
ACUTE ABDOMEN SERIES: 12/10/2017 FINDINGS: Review of the recent CT abdomen study was done. Supine and erect films show no free air beneath the diaphragm. The gas pattern is unremarkable, showing no distended bowel to suggest obstruction. Vasc ular calcifications are evident. Vertebroplasty changes are seen in the lower lumbar vertebrae. The re has been prior ORIF of the left hip. A chest film included in the series is compared with an 09/2017 study. There has been no adverse change. Minimal cardiomegaly is no different. There are no signs of vascular congestion, edema, effusion, or focal pulmonary infiltrate. IMPRESSION: No acute abdominal finding. POS: HOME
== END 2017-12-10 07:57 | disposition home or self-care (01) ==
LOC: BURERS 05:38
DX: R10.31 Right lower quadrant pain (principal); I50.9 Heart failure, unspecified; I25.2 Old myocardial infarction; E03.9 Hypothyroidism, unspecified; K58.9 Irritable bowel syndrome, unspecified; F41.9 Anxiety disorder, unspecified; F32.9 Major depressive disorder, single episode, unspecified; D50.9 Iron deficiency anemia, unspecified; Z79.82 Long term (current) use of aspirin; Z79.4 Long term (current) use of insulin; Z86.73 Personal history of transient ischemic attack (TIA), and cerebral infarction without residual deficits; Z79.899 Other long term (current) drug therapy
CPT/HCPCS: 36415; 74022; 80053; 81003; 81015; 83690; 85025

== ENCOUNTER 2017-12-27 11:04 | Emergency (ER) | payer MEDICARE, OTHER ==
[2017-12-27] MEDS ORDERED: Ondansetron ODT 4 MG TAB ONE (11:53)
== END 2017-12-27 12:17 | disposition home or self-care (01) ==
LOC: BURERS 11:04
DX: Z48.817 Encounter for surgical aftercare following surgery on the skin and subcutaneous tissue (principal); I50.9 Heart failure, unspecified; I25.10 Atherosclerotic heart disease of native coronary artery without angina pectoris; I25.2 Old myocardial infarction; E03.9 Hypothyroidism, unspecified; D50.9 Iron deficiency anemia, unspecified; F41.9 Anxiety disorder, unspecified; F32.9 Major depressive disorder, single episode, unspecified; E11.9 Type 2 diabetes mellitus without complications; Z79.4 Long term (current) use of insulin; Z86.73 Personal history of transient ischemic attack (TIA), and cerebral infarction without residual deficits; Z79.899 Other long term (current) drug therapy; Z79.82 Long term (current) use of aspirin; Z79.891 Long term (current) use of opiate analgesic
CPT/HCPCS: 99284; Q0162

== ENCOUNTER 2017-12-31 03:34 | Emergency (ER) | payer MEDICARE, OTHER | END 2017-12-31 04:36 | disposition home or self-care (01) | LOC: BURERS 03:34 | DX: Z43.3 Encounter for attention to colostomy (principal); I25.10 Atherosclerotic heart disease of native coronary artery without angina pectoris; I25.2 Old myocardial infarction; E11.9 Type 2 diabetes mellitus without complications; E03.9 Hypothyroidism, unspecified; F32.9 Major depressive disorder, single episode, unspecified; F41.9 Anxiety disorder, unspecified; Z86.73 Personal history of transient ischemic attack (TIA), and cerebral infarction without residual deficits; Z79.899 Other long term (current) drug therapy; Z79.4 Long term (current) use of insulin; Z79.82 Long term (current) use of aspirin; Z79.891 Long term (current) use of opiate analgesic | CPT/HCPCS: 99283 ==

== ENCOUNTER 2018-01-16 16:30 | Emergency (ER) | payer MEDICARE, MEDICAID ==
--- NOTE | 2018-01-16 18:56 | RAD ---
ACUTE ABDOMEN SERIES: Date: 01-16-18 FINDINGS: The abdominal gas pattern is nonspecific. There are no greatly dilated loops to suggest fuad obstruc tion. No free air was seen. The spleen is somewhat prominent in size, but this is not a new finding i n this patient. Vertebroplasties are noted in the lower lumbar region. The chest film in the series s hows a stable heart size. No focal pulmonary infiltrates or congestive changes were seen. There are n o effusions. IMPRESSION: Nonspecific abdominal finding. POS: HOME
== END 2018-01-16 18:15 | disposition home or self-care (01) ==
LOC: BURERS 16:30
DX: R10.84 Generalized abdominal pain (principal); I25.10 Atherosclerotic heart disease of native coronary artery without angina pectoris; I25.2 Old myocardial infarction; E11.9 Type 2 diabetes mellitus without complications; Z79.4 Long term (current) use of insulin; E03.9 Hypothyroidism, unspecified; D50.9 Iron deficiency anemia, unspecified; Z86.73 Personal history of transient ischemic attack (TIA), and cerebral infarction without residual deficits; F41.9 Anxiety disorder, unspecified; F32.9 Major depressive disorder, single episode, unspecified; Z87.891 Personal history of nicotine dependence
CPT/HCPCS: 74022

== ENCOUNTER 2018-02-19 08:50 | Emergency (ER) | payer MEDICARE, MEDICAID ==
[2018-02-19] MEDS ORDERED: traMADol HCl 50 MG TAB ONE (09:53)
== END 2018-02-19 11:00 | disposition home or self-care (01) ==
LOC: BURERS 08:50
DX: K94.09 Other complications of colostomy (principal); I25.10 Atherosclerotic heart disease of native coronary artery without angina pectoris; I25.2 Old myocardial infarction; I11.9 Hypertensive heart disease without heart failure; E03.9 Hypothyroidism, unspecified; D50.9 Iron deficiency anemia, unspecified; Z86.73 Personal history of transient ischemic attack (TIA), and cerebral infarction without residual deficits; F41.9 Anxiety disorder, unspecified; F32.9 Major depressive disorder, single episode, unspecified; Z87.891 Personal history of nicotine dependence; Z79.899 Other long term (current) drug therapy; Z79.82 Long term (current) use of aspirin; Z79.4 Long term (current) use of insulin
CPT/HCPCS: 99283

== ENCOUNTER 2018-04-02 22:46 | Emergency (ER) | payer MEDICARE, OTHER ==
--- NOTE | 2018-04-03 08:06 | RAD ---
RIGHT ELBOW FOUR VIEWS: 04/02/2018 FINDINGS: Portable views show no evidence of fracture, dislocation, or joint effusion. All bones appear intact . IMPRESSION: No acute finding. POS: HOME
--- NOTE | 2018-04-03 08:07 | RAD ---
PORTABLE CHEST: Date: 04-02-18 An AP portable film at 2252 is compared with a 12-10-17 study. FINDINGS: The heart size is stable. Median sternotomy sutures are noted from prior surgery. The trachea deviate s slightly towards the right as it crosses the aorta. I do not appreciate that on the prior study, jorje davies, the patient is turned significantly on this exam which probably accounts for this. If there wa s any trauma severe enough to be concerned about aortic injury, then a CT would be needed. There is n o widening of the mediastinum. The odds are highest that this is caused by the patient being oblique slightly. The lungs are clear and fully inflated. There is no infiltrate or effusion. There is no vas cular congestion or edema. IMPRESSION: 1. No definite acute findings. 2. Trachea deviates somewhat towards the right as it crosses the aorta. Probably a consequence of the patient being turned for this study. It might be best to get her back and do a well centered PA ches t film to be sure that the appearance is comparable to her older films. Code T POS: HOME
--- NOTE | 2018-04-03 08:09 | RAD ---
PELVIS 1 VIEW: Date: 04/02/18 Portable film done at 2236 hours was obtained. The portable technique and soft tissues decrease the s ensitivity of this study. No gross pelvic fractures are seen. Subtle ones might be missed. No fractur es or acute traumatic changes are observed. There has been a prior open reduction and internal fixati on of a left femoral neck fracture. The right hip appears intact. The symphysis shows no widening. SI joints are symmetrical. IMPRESSION: Reduced sensitivity study showing no acute findings. POS: HOME
== END 2018-04-03 00:10 | disposition home or self-care (01) ==
LOC: BURERS 22:46
DX: S51.011A Laceration without foreign body of right elbow, initial encounter (principal); E11.65 Type 2 diabetes mellitus with hyperglycemia; I50.9 Heart failure, unspecified; I25.10 Atherosclerotic heart disease of native coronary artery without angina pectoris; E03.9 Hypothyroidism, unspecified; D50.9 Iron deficiency anemia, unspecified; Z86.73 Personal history of transient ischemic attack (TIA), and cerebral infarction without residual deficits; I25.2 Old myocardial infarction; F41.9 Anxiety disorder, unspecified; F32.9 Major depressive disorder, single episode, unspecified; Z87.891 Personal history of nicotine dependence; W19.XXXA Unspecified fall, initial encounter
CPT/HCPCS: 36416; 71045; 72170

== ENCOUNTER 2018-04-25 12:06 | Emergency (ER) | payer MEDICARE, MEDICAID ==
[2018-04-25 12:48] LABS: Mean Corpuscular HGB CONC 31.4 g/dL (32.0-36.0); Mean Corpuscular Hemoglobin 30.8 pg (27.0-31.0); Mean Corpuscular Volume 98.2 fL (78.0-98.0); Mean Platelet Volume 8.7 fL (7.4-10.4); Platelet Count 62 thou/uL (130-400); RBC Distribution Width 13.3 % (11.5-14.5); Red Blood Cell (RBC) Count 3.89 mill/uL (4.20-5.40); White Blood Cell (WBC) Count 4.3 thou/uL (4.8-10.8)
[2018-04-25 12:57] LABS: #Eosinphils 0.1 thou/uL (0.0-0.7); #Lymphocytes 0.7 thou/uL (1.20-3.40); #Monocytes 0.2 thou/uL (0.11-0.59); #Neutrophils 3.3 thou/uL (1.40-6.50); %Basophils 0.7 % (0.0-1.0); %Eosinophils 1.2 % (0.0-10.0); %Lymphocytes 15.3 % (21.0-51.0); %Monocytes 5.3 % (0.0-10.0); %Neutrophils 77.5 % (42.0-75.0)
[2018-04-25 12:58] LABS: ALT (SGPT) 14 U/L (8-55); AST (SGOT) 17 U/L (5-34); Albumin 3.4 g/dL (3.4-4.8); Alkaline Phosphatase 128 U/L (40-150); Anion Gap 13 mmol/L (10-20); BUN (Urea Nitrogen) 17 mg/dL (9.8-20.1); Bilirubin, Total 0.4 mg/dL (0.2-1.2); Calc. Creatinine Clearance 0 mL/min (70-130); Calcium 9.2 mg/dL (7.8-10.44); Carbon Dioxide 22 mmol/L (23-31); Chloride 105 mmol/L (98-107); Estimated GFR-MDRD 37; Glucose 400 mg/dL (83-110); Potassium 4.1 mmol/L (3.5-5.1); Protein, Total 7.4 g/dL (6.0-8.3); Sodium 136 mmol/L (136-145)
[2018-04-25 12:59] LABS: MDiff Complete? YES; Platelet Morphology Comment Appears Decreased
[2018-04-25 13:03] LABS: Clarity Clear (Clear); Leukocyte Trace (Negative); Nitrite Negative (Negative)
[2018-04-25 13:04] LABS: Bilirubin Negative (Negative); Blood, Urine Negative (Negative); Glucose, Urine (Dipstick) 500 mg/dL (Negative); Protein, Urine (Dipstick) Negative (Neg-Trace); RBC/HPF 0-3 HPF (0-3); Urobilinogen 0.2 mg/dL (0.2-1.0)
[2018-04-25 13:05] LABS: Bacteria/HPF Rare-Few HPF (None Seen); Squamous Epithelial 0-3 HPF (0-3); Yeast-All Forms 1+ HPF (None Seen)
== END 2018-04-25 14:15 | disposition short-term general hospital (02) ==
LOC: BURERS 12:06
DX: L03.116 Cellulitis of left lower limb (principal); I50.9 Heart failure, unspecified; E11.9 Type 2 diabetes mellitus without complications; E03.9 Hypothyroidism, unspecified; Z87.891 Personal history of nicotine dependence; Z79.899 Other long term (current) drug therapy; Z79.84 Long term (current) use of oral hypoglycemic drugs
CPT/HCPCS: 36416; 80053; 81003; 81015; 83880; 85025; 85379; 99284; 36415-59

== ENCOUNTER 2018-07-28 18:11 | Emergency (ER) | payer MEDICARE, MEDICAID | END 2018-07-28 19:00 | disposition home or self-care (01) | LOC: BURERS 18:11 | DX: Z43.3 Encounter for attention to colostomy (principal); I50.9 Heart failure, unspecified; E11.9 Type 2 diabetes mellitus without complications; E03.9 Hypothyroidism, unspecified; Z86.73 Personal history of transient ischemic attack (TIA), and cerebral infarction without residual deficits; Z87.891 Personal history of nicotine dependence; Z79.899 Other long term (current) drug therapy; Z79.82 Long term (current) use of aspirin; Z79.4 Long term (current) use of insulin ==

== ENCOUNTER 2018-08-25 23:00 | Emergency (ER) | payer MEDICARE, OTHER | END 2018-08-26 01:00 | disposition home or self-care (01) | LOC: BURERS 23:00 | DX: K94.03 Colostomy malfunction (principal); I50.9 Heart failure, unspecified; E11.9 Type 2 diabetes mellitus without complications; E03.9 Hypothyroidism, unspecified; K58.9 Irritable bowel syndrome, unspecified; Z87.01 Personal history of pneumonia (recurrent); Z86.73 Personal history of transient ischemic attack (TIA), and cerebral infarction without residual deficits; Z79.899 Other long term (current) drug therapy; Z79.82 Long term (current) use of aspirin | CPT/HCPCS: 99283 ==

== ENCOUNTER 2018-08-31 18:51 | Emergency (ER) | payer MEDICARE, OTHER ==
[2018-08-31 20:01] LABS: Hemoglobin 12.1 g/dL (12.0-16.0); Mean Corpuscular HGB CONC 31.3 g/dL (32.0-36.0); Mean Corpuscular Hemoglobin 30.5 pg (27.0-31.0); Mean Corpuscular Volume 97.4 fL (78.0-98.0); Mean Platelet Volume 8.5 fL (7.4-10.4); Platelet Count 72 thou/uL (130-400); RBC Distribution Width 14.2 % (11.5-14.5); Red Blood Cell (RBC) Count 3.98 mill/uL (4.20-5.40); White Blood Cell (WBC) Count 5.5 thou/uL (4.8-10.8)
[2018-08-31 20:11] LABS: ALT (SGPT) 22 U/L (8-55); AST (SGOT) 19 U/L (5-34); Albumin 3.7 g/dL (3.4-4.8); Alkaline Phosphatase 80 U/L (40-150); Anion Gap 14 mmol/L (10-20); BUN (Urea Nitrogen) 33 mg/dL (9.8-20.1); Bilirubin, Total 0.4 mg/dL (0.2-1.2); Calc. Creatinine Clearance 0 mL/min (70-130); Carbon Dioxide 24 mmol/L (23-31); Chloride 104 mmol/L (98-107); Estimated GFR-MDRD 31; Glucose 214 mg/dL (83-110); Potassium 3.9 mmol/L (3.5-5.1); Protein, Total 7.7 g/dL (6.0-8.3); Sodium 138 mmol/L (136-145)
[2018-08-31 20:15] LABS: #Basophils 0.1 thou/uL (0.0-0.2); #Eosinphils 0.1 thou/uL (0.0-0.7); #Lymphocytes 0.4 thou/uL (1.20-3.40); #Monocytes 0.3 thou/uL (0.11-0.59); #Neutrophils 4.6 thou/uL (1.40-6.50); %Eosinophils 1.2 % (0.0-10.0); %Lymphocytes 6.9 % (21.0-51.0); %Monocytes 6.2 % (0.0-10.0); %Neutrophils 83.8 % (42.0-75.0); Platelet Morphology Comment Appears Decreased; RBC Morphology Normal
[2018-08-31 20:17] LABS: MDiff Complete? YES; Manual Diff?? NO
== END 2018-08-31 21:20 | disposition home or self-care (01) ==
LOC: BURERS 18:51
DX: R19.7 Diarrhea, unspecified (principal); I50.9 Heart failure, unspecified; E11.9 Type 2 diabetes mellitus without complications; E03.9 Hypothyroidism, unspecified; Z86.73 Personal history of transient ischemic attack (TIA), and cerebral infarction without residual deficits; Z87.891 Personal history of nicotine dependence; Z79.4 Long term (current) use of insulin
CPT/HCPCS: 36415; 80053; 85025; 87045; 87046; 87081; 87324; 87449; 87899; 96360; 96372; J0500

== ENCOUNTER 2018-12-09 17:20 | Emergency (ER) | payer MEDICARE, MEDICAID ==
[2018-12-09 18:31] LABS: ALT (SGPT) 16 U/L (8-55); AST (SGOT) 22 U/L (5-34); Albumin 3.6 g/dL (3.4-4.8); Alkaline Phosphatase 81 U/L (40-110); Anion Gap 15 mmol/L (10-20); BUN (Urea Nitrogen) 25 mg/dL (9.8-20.1); Bilirubin, Total 0.7 mg/dL (0.2-1.2); Calc. Creatinine Clearance 0 mL/min (70-130); Calcium 9.4 mg/dL (7.8-10.44); Carbon Dioxide 26 mmol/L (23-31); Chloride 104 mmol/L (98-107); Estimated GFR-MDRD 31; Globulin 4.1 g/dL (2.4-3.5); Glucose 103 mg/dL (83-110); Potassium 3.2 mmol/L (3.5-5.1); Protein, Total 7.7 g/dL (6.0-8.3); Sodium 142 mmol/L (136-145)
[2018-12-09 18:32] LABS: #Basophils 0.1 thou/uL (0.0-0.2); #Eosinphils 0.1 thou/uL (0.0-0.7); #Lymphocytes 0.5 thou/uL (1.20-3.40); #Monocytes 0.4 thou/uL (0.11-0.59); #Neutrophils 4.2 thou/uL (1.40-6.50); %Basophils 1.2 % (0.0-1.0); %Lymphocytes 9.5 % (21.0-51.0); %Monocytes 8.2 % (0.0-10.0); %Neutrophils 80.2 % (42.0-75.0); Hemoglobin 10.9 g/dL (12.0-16.0); Mean Corpuscular HGB CONC 30.4 g/dL (32.0-36.0); Mean Corpuscular Hemoglobin 29.6 pg (27.0-31.0); Mean Corpuscular Volume 97.3 fL (78.0-98.0); Mean Platelet Volume 8.6 fL (7.4-10.4); Platelet Count 81 thou/uL (130-400); RBC Distribution Width 14.1 % (11.5-14.5); Red Blood Cell (RBC) Count 3.68 mill/uL (4.20-5.40); White Blood Cell (WBC) Count 5.2 thou/uL (4.8-10.8)
[2018-12-09 18:33] LABS: Platelet Morphology Comment Appears Decreased
--- NOTE | 2018-12-09 19:25 | CT ---
CT OF THE THORAX WITHOUT IV CONTRAST INDICATION: Dyspnea COMPARISON: CT lumbar spine dated July 03, 2018. FINDINGS: LUNGS: Moderate to severe emphysema. No airspace consolidation. Subsegmental volume loss of both lowe r lobes. Pleural spaces: Clear Lymph nodes: A few mildly prominent lymph nodes are seen within the mediastinum, predominantly in the right tracheobronchial region measuring up to 8 mm. These are nonspecific. Heart and great vessels: The lack of IV contrast limits interrogation of the heart and great vessels. There is scattered thoracic and coronary artery calcifications. Upper abdomen: Mild splenomegaly. Osseous structures: Stable severe compression abnormality of L1. There are age-indeterminate compress ion abnormalities of T5, T6 and T8. The T8 compression abnormality is moderate in severity. IMPRESSION: 1. No acute cardiac pulmonary abnormality. Patchy areas of subsegmental volume loss are seen within b oth lower lobes. 2. Moderate to severe emphysema. 3. Age-indeterminate compression abnormalities at T5, T6 and T8. Stable compression abnormality of L1 . 4. Nonspecific mild splenomegaly.
[2018-12-09] MEDS ORDERED: Cephalexin 250 MG CAP ONE (19:54)
[2018-12-09] MEDS ORDERED: HYDROcodone/Acetaminophen 10/325 mg Tablet ONE (20:48)
[2018-12-09] MEDS ORDERED: Potassium Chloride 20 MEQ TAB ONE (20:49)
[2018-12-09 23:02] LABS: Anion Gap 13 mmol/L (10-20); BUN (Urea Nitrogen) 24 mg/dL (9.8-20.1); Calc. Creatinine Clearance 0 mL/min (70-130); Calcium 8.5 mg/dL (7.8-10.44); Carbon Dioxide 24 mmol/L (23-31); Chloride 107 mmol/L (98-107); Estimated GFR-MDRD 37; Glucose 167 mg/dL (83-110); Potassium 3.4 mmol/L (3.5-5.1); Sodium 141 mmol/L (136-145)
--- NOTE | 2018-12-10 | RAD ---
PORTABLE CHEST: Date: 12-09-18 FINDINGS: An AP portable film at 1807 shows a normal sized heart. There is, perhaps, some prominence of the int erstitium such as might be seen in fibrosis, but no acute infiltrate or effusion was present. The tra nayana deviates slightly to the right as it crosses the aortic arch. Median sternotomy sutures are note d from prior surgery. IMPRESSION: No acute thoracic findings. POS: HOME
== END 2018-12-09 23:20 | disposition home or self-care (01) ==
LOC: BURERS 17:20
DX: E86.0 Dehydration (principal); R06.00 Dyspnea, unspecified; E11.9 Type 2 diabetes mellitus without complications; E03.9 Hypothyroidism, unspecified; I50.9 Heart failure, unspecified; Z87.01 Personal history of pneumonia (recurrent); Z79.82 Long term (current) use of aspirin; Z79.899 Other long term (current) drug therapy; Z79.4 Long term (current) use of insulin; Z86.73 Personal history of transient ischemic attack (TIA), and cerebral infarction without residual deficits; Z79.891 Long term (current) use of opiate analgesic
CPT/HCPCS: 36415; 71045; 71250; 80053; 83880; 84484; 85025; 93005; 96360; 96361

== ENCOUNTER 2019-01-31 10:38 | Emergency (ER) | payer MEDICARE, MEDICAID ==
[2019-01-31] MEDS ORDERED: Iopamidol 370 76% 100 ML VIAL ONE (11:41)
[2019-01-31 11:45] LABS: Anion Gap 15 mmol/L (10-20); BUN (Urea Nitrogen) 29 mg/dL (9.8-20.1); Calc. Creatinine Clearance 0 mL/min (70-130); Calcium 9.2 mg/dL (7.8-10.44); Carbon Dioxide 23 mmol/L (23-31); Chloride 104 mmol/L (98-107); Estimated GFR-MDRD 34; Glucose 224 mg/dL (83-110); Potassium 5.2 mmol/L (3.5-5.1); Sodium 137 mmol/L (136-145)
[2019-01-31 12:03] LABS: #Basophils 0.1 thou/uL (0.0-0.2); #Eosinphils 0.1 thou/uL (0.0-0.7); #Lymphocytes 0.6 thou/uL (1.20-3.40); #Monocytes 0.4 thou/uL (0.11-0.59); #Neutrophils 6.6 thou/uL (1.40-6.50); %Basophils 1.2 % (0.0-1.0); %Eosinophils 0.7 % (0.0-10.0); %Lymphocytes 7.2 % (21.0-51.0); %Monocytes 5.3 % (0.0-10.0); %Neutrophils 85.5 % (42.0-75.0); Hemoglobin 11.2 g/dL (12.0-16.0); Mean Corpuscular HGB CONC 31.9 g/dL (32.0-36.0); Mean Corpuscular Hemoglobin 30.9 pg (27.0-31.0); Mean Corpuscular Volume 96.7 fL (78.0-98.0); Mean Platelet Volume 9.5 fL (7.4-10.4); Platelet Count 95 thou/uL (130-400); RBC Distribution Width 13.8 % (11.5-14.5); Red Blood Cell (RBC) Count 3.64 mill/uL (4.20-5.40); White Blood Cell (WBC) Count 7.7 thou/uL (4.8-10.8)
[2019-01-31 12:06] LABS: Platelet Morphology Comment Appears Decreased
[2019-01-31] MEDS ORDERED: metroNIDAZOLE 500 MG/100 ML BAG ONE (12:43)
[2019-01-31] MEDS ORDERED: Piperacillin/Tazobactam 4.5 GM VIAL ONE (12:43)
[2019-01-31] MEDS ORDERED: Sodium Chloride 0.9% 100 ML ONE (12:43)
--- NOTE | 2019-01-31 18:55 | CT ---
CT ABDOMEN AND PELVIS WITH CONTRAST 01/31/19 Comparison is made with the prior study of 12/17/17. There is some patchy interstitial thickening in the lung bases that in part is fibrosis and in part i s most likely atelectasis. No lobar consolidations or effusions were seen. The spleen is generous in size but no more so than it has been in the past. No space occupying disease was seen in the liver, spleen or pancreas. Stones are seen in the neck of the gallbladder as before. The aorta shows calcifi cation but no aneurysm. The kidneys showed no solid mass or hydronephrosis. No adrenal masses were se en. There is a fluid collection that extends through the right lateral anterior abdominal wall in the rig ht lower quadrant. It is just lateral to and below the patient's colostomy. It measures approximately 4 x 5 cm. This finding was present in 2018 but was somewhat larger. Without the benefit of enteric c ontrast, I cannot tell if this is a piece of bowel protruding through a defect in the wall or if it i s an abscess. My leanings are towards abscess in that I cannot establish a clear connection with rhonda l, the area is said to be red and tender, and there is no dilation of any loop of bowel within the ab domen. Nevertheless, without the contrast it is difficult to be absolutely certain. This was exactly the same situation before. No free air was seen. No significant free fluid was seen in the abdomen. There is no sign of obstruction. CT of the pelvis showed no pelvic masses, fluid collections, or inflammatory changes there. Degenerat nikolas changes are present in the spine. There is a chronic compression fracture of the L1 vertebral katelyn dy with retropulsion of some of the fragments posteriorly. This was present previously and is not new . There has been vertebroplasties involving L3, L4 and L5. IMPRESSION: Fluid collection extending through the anterior abdominal wall in the right lower quadrant just below and lateral to the patient's colostomy. As noted above, without enteric contrast, it is difficult to tell if this is a piece of bowel protruding through a defect or if it is an abscess. The latter is s lightly favored for the reasons listed above. Additionally, this finding was present on the 2018 y and similar conclusions were made regarding its etiology. It is smaller today than before, but it c orrelates with the area that is acutely symptomatic. Findings discussed with Dr. Drew at 12:27 on 01/31/19. POS: HOME
== END 2019-01-31 13:42 | disposition short-term general hospital (02) ==
LOC: BURERS 10:38
DX: R10.31 Right lower quadrant pain (principal); I50.9 Heart failure, unspecified; E11.9 Type 2 diabetes mellitus without complications; E03.9 Hypothyroidism, unspecified; Z86.73 Personal history of transient ischemic attack (TIA), and cerebral infarction without residual deficits; Z87.891 Personal history of nicotine dependence; Z79.4 Long term (current) use of insulin; Z79.899 Other long term (current) drug therapy; Z79.891 Long term (current) use of opiate analgesic
CPT/HCPCS: 36415; 74177; 80048; 83605; 85025; 87040; 96365; 96367; J2543; J3490; Q9967